=== PATIENT | female | born 1985 | race Caucasian/White ===

== ENCOUNTER → 2017-12-05 10:59 | Outpatient (CLI) | payer OTHER, SELFPAY ==
[2017-12-05 12:43] LABS: hCG Titer Quant., Serum < 1 mIU/mL (<9 non-preg)
[2017-12-12 09:45] LABS: HPV Reflexed? NOT INDICATED
== END ==
PROVIDERS: Visit Provider Obstetrics & Gynecology
DX: Z12.4 Encounter for screening for malignant neoplasm of cervix (principal); N92.6 Irregular menstruation, unspecified
CPT/HCPCS: 36415; 84702; 88175; G0145

== ENCOUNTER → 2018-01-09 13:24 | Outpatient (CLI) | payer OTHER, SELFPAY ==
[2018-01-09 14:21] LABS: hCG Titer Quant., Serum 1965 mIU/mL (<9 non-preg)
== END ==
PROVIDERS: Visit Provider Obstetrics & Gynecology
DX: N92.6 Irregular menstruation, unspecified (principal)
CPT/HCPCS: 84702

== ENCOUNTER → 2018-01-10 13:14 | Outpatient (CLI) | payer OTHER, SELFPAY ==
[2018-01-10 16:58] LABS: hCG Titer Quant., Serum 3011 mIU/mL (<9 non-preg)
== END ==
PROVIDERS: Visit Provider Obstetrics & Gynecology
DX: N91.2 Amenorrhea, unspecified (principal)
CPT/HCPCS: 36415; 84702

== ENCOUNTER → 2018-02-06 12:44 | Outpatient (CLI) | payer OTHER, SELFPAY ==
[2018-02-06 13:20] LABS: Absolute Neutrophil Count 6.9 X10^3/uL (2.0-7.7); Basophil# 0.03 X10^3/uL; Basophil% 0.3 % (0-1); Eosinophil# 0.05 X10^3/uL; Eosinophils% 0.5 % (0-5); Hematocrit 37.6 % (37-47); Hemoglobin 13.3 g/dl (12.0-15.0); Lymphocyte % 21.2 % (19-41); Mean Corp Hgb Conc 35.4 g/gl (32-36); Mean Corpuscular Hgb 31.8 pg (27.0-32.0); Mean Platelet Vol. 9.7 fl (6.2-12.0); Monocyte# 0.82 X10^3/uL; Monocyte% 8.3 % (0-10); Neutrophil # 6.88 X10^3/uL (2.7-7.7); Neutrophil % 69.4 % (47-70); Platelet Count 338 K/mm3 (150-450); RBC Distribution Width CV 11.8 % (11.6-14.6); Red Blood Count 4.18 M/mm3 (4.2-5.4); White Blood Count 9.9 K/mm3 (4.4-11.0)
[2018-02-07 02:34] LABS: Rapid Plasmin Reagin (RPR) NONREACTIVE (NONREACTIVE)
[2018-02-07 09:27] LABS: HIV - WCH Non-Reactive (Nonreactive); Rubella IgG 23.2 IU/mL; Vitamin D,25 Hydroxy 36.6 ng/mL (29.95-100.01)
[2018-02-07 11:30] LABS: HEPATITIS B SURFACE AG Negative (Negative)
== END ==
PROVIDERS: Visit Provider Obstetrics & Gynecology
DX: Z34.90 Encounter for supervision of normal pregnancy, unspecified, unspecified trimester (principal); E55.9 Vitamin D deficiency, unspecified
CPT/HCPCS: 36415; 82306; 85025; 86592; 86703; 86762; 86850; 86900; 87340

== ENCOUNTER → 2018-02-06 17:07 | Outpatient (CLI) | payer OTHER, SELFPAY ==
[2018-02-06 20:24] LABS: Chlamydia Trachomatis by PCR Negative (Negative); Neisserai gonorrhoeae by PCR Negative (Negative); Probe Check PASS; Sample Adequacy Control PASS; Specimen Processing Control PASS
== END ==
PROVIDERS: Visit Provider Obstetrics & Gynecology
DX: Z34.90 Encounter for supervision of normal pregnancy, unspecified, unspecified trimester (principal)
CPT/HCPCS: 87086; 87088; 87491; 87591

== ENCOUNTER → 2018-04-19 09:30 | Outpatient (CLI) | payer OTHER, SELFPAY ==
--- NOTE | 2018-04-19 09:34 | US_ITS ---
STUDY: SECOND AND THIRD TRIMESTER OBSTETRICAL ULTRASOUND REASON FOR EXAM: Female, 32 years old. Routine survey. LMP: December 07, 2017 TECHNIQUE: Transabdominal PRIOR ULTRASOUND: None. FINDINGS: There is a single intrauterine fetus. The fetus is in a variable presentation. There is demonstrated cardiac activity with a heart rate of 144 bpm. There is a normal amniotic fluid volume. The placenta is posterior in location and is not low lying. There are Grade 0 placental changes. The cervix measures 5.6 cm in length. The adnexal regions are not visualized. BIOMETRY: BPD: 4.3 cm: 19 weeks, 0 days HC: 16.3 cm: 19 weeks, 1 days AC: 13.6 cm: 19 weeks, 1 days FL: 3.0 cm: 19 weeks, 2 days age by current US: 19 weeks, 1 days. BRANDEE by current US: September 12, 2018. Estimated weight: 276 grams, +/- 40 grams, 53 % Age by LMP: 19 weeks, 0 days. BRANDEE by LMP: September 13, 2018. ANATOMY: Cranium: Normal lateral ventricles. Normal choroid plexus. Normal cerebellum. Normal cisterna magna. Normal face, nose and lips. Chest: Normal 4-chamber heart. Abdomen/Pelvis: Normal diaphragm. Normal stomach. Normal abdominal wall. Normal cord insertion. Normal 3 vessel cord. Normal kidneys. Normal bladder. Spine: Normal cervical spine. Normal thoracic spine. Normal lumbar spine. Normal sacrum. Extremities: Normal bilateral upper extremities. There is possible abnormal positioning of the right lower extremity. US/OB Anatomy Scan IMPRESSION: Single intrauterine gestation 19 weeks 1 day with estimated due date September 12, 2018. There is possible abnormal positioning of the right lower extremity. The remainder of the anatomic screen is unremarkable. Electronically Signed: Gino Reed MD at 12:02 EDT , Service support ,
== END ==
PROVIDERS: Visit Provider Nurse Practitioner Women's Health
DX: Z34.92 Encounter for supervision of normal pregnancy, unspecified, second trimester (principal); Z3A.19 19 weeks gestation of pregnancy
CPT/HCPCS: 76805

== ENCOUNTER → 2018-05-08 07:48 | Outpatient (CLI) | payer OTHER, SELFPAY ==
--- NOTE | 2018-05-08 07:53 | US_ITS ---
STUDY: SECOND AND THIRD TRIMESTER OBSTETRICAL ULTRASOUND - LIMITED REASON FOR EXAM: Female, 32 years old. Follow-up anatomy. LMP: 12/07/17 PRIOR ULTRASOUND: 04/19/2018 TECHNIQUE: Transabdominal ultrasound evaluation was performed. FINDINGS: There is a single intrauterine fetus. The fetus is in a cephalic presentation. There is demonstrated cardiac activity with a heart rate of 146 bpm. There is a normal amniotic fluid volume. The largest amniotic fluid pocket measures 9.8 x 3.2 cm. The placenta is posterior in location and is not low lying. There are Grade 0 placental changes. The cervix measures 4.4 cm in length. BIOMETRY: BPD: 5.13 cm: 21 weeks, 4 days HC: 19.99 cm: 22 weeks, 2 days AC: 16.80 cm: 21 weeks, 6 days FL: 3.69 cm: 21 weeks, 6 days Age by LMP: 21 weeks, 5 days. BRANDEE by LMP: 09/13/2018. age by prior US: 21 weeks, 6 days. BRANDEE by prior US: 09/12/2018. age by current US: 22 weeks, 0 days. BRANDEE by current US: 09/11/2018. Estimated weight: 452 grams, +/- 66 grams, 49 percentile. Gender: Indeterminant Bilateral lower extremities normal on today's study US/OB Limited With Biometrics IMPRESSION: Single live intrauterine at 22 weeks, 0 days by ultrasound with BRANDEE of 09/11/2018. Heart rate of 146 bpm. Normal growth noted since the previous study. No suspicious sonographic findings, bilateral lower extremities normal on today's examination Electronically Signed: Skyler Malhotra MD at 12:05 EDT , Service support ,
== END ==
PROVIDERS: Visit Provider Obstetrics & Gynecology
DX: O28.3 Abnormal ultrasonic finding on antenatal screening of mother (principal)
CPT/HCPCS: 76816

== ENCOUNTER → 2018-06-17 16:16 | Outpatient (CLI) | payer BC, SELFPAY ==
[2018-06-17 17:13] LABS: Absolute Lymphocyte Count 2.17 X10^3/ul (0.83-4.51); Absolute Neutrophil Count 8.2 X10^3/uL (2.0-7.7); Basophil# 0.02 X10^3/uL; Basophil% 0.2 % (0-1); Eosinophil# 0.06 X10^3/uL; Eosinophils% 0.5 % (0-5); Hemoglobin 12.5 g/dl (12.0-15.0); Lymphocyte # 2.17 X10^3/ul (4.0); Mean Corp Hgb Conc 34.7 g/gl (32-36); Mean Corpuscular Hgb 31.9 pg (27.0-32.0); Mean Corpuscular Volume 91.8 fL (81-99); Mean Platelet Vol. 10.2 fl (6.2-12.0); Monocyte% 7.9 % (0-10); Neutrophil # 8.21 X10^3/uL (2.7-7.7); Neutrophil % 71.9 % (47-70); Platelet Count 221 K/mm3 (150-450); RBC Distribution Width CV 12.5 % (11.6-14.6); RBC Distribution Width SD 41.8 fl (35.1-43.9); Red Blood Count 3.92 M/mm3 (4.2-5.4); White Blood Count 11.4 K/mm3 (4.4-11.0)
[2018-06-17 17:15] LABS: POSITIVE COUNT NO; POSITIVE DIFFERENTIAL NO; POSITIVE MORPHOLOGY NO
[2018-06-17 17:21] LABS: Glucose Challenge Gest 1H 50g 125 mg/dL (70-140)
== END ==
PROVIDERS: Visit Provider Obstetrics & Gynecology
DX: Z34.90 Encounter for supervision of normal pregnancy, unspecified, unspecified trimester (principal)
CPT/HCPCS: 36415; 82950; 85025

== ENCOUNTER → 2018-07-17 16:33 | Outpatient (CLI) | payer BC, SELFPAY ==
[2018-07-17 17:19] LABS: Absolute Lymphocyte Count 1.91 X10^3/ul (0.83-4.51); Absolute Neutrophil Count 6.4 X10^3/uL (2.0-7.7); Basophil# 0.02 X10^3/uL; Basophil% 0.2 % (0-1); Hematocrit 34.9 % (37-47); Hemoglobin 12.3 g/dl (12.0-15.0); Lymphocyte # 1.91 X10^3/ul (4.0); Mean Corp Hgb Conc 35.2 g/gl (32-36); Mean Corpuscular Volume 90.9 fL (81-99); Mean Platelet Vol. 10.7 fl (6.2-12.0); Monocyte# 1.02 X10^3/uL; Monocyte% 10.7 % (0-10); Neutrophil # 6.43 X10^3/uL (2.7-7.7); Neutrophil % 67.2 % (47-70); Platelet Count 226 K/mm3 (150-450); RBC Distribution Width CV 12.3 % (11.6-14.6); RBC Distribution Width SD 40.1 fl (35.1-43.9); Red Blood Count 3.84 M/mm3 (4.2-5.4); White Blood Count 9.6 K/mm3 (4.4-11.0)
[2018-07-17 17:21] LABS: POSITIVE COUNT NO; POSITIVE DIFFERENTIAL NO; POSITIVE MORPHOLOGY NO
[2018-07-17 17:35] LABS: Protein, Urine (Random) 22.4 mg/dL (<11.9); Protein:Creat Ratio 336 mg/g CRE (0-200)
[2018-07-17 17:41] LABS: ALB/GLOB Ratio 0.7 RATIO (0.9-2.4); AST(SGOT) 13 U/L (15-37); Alanine Aminotransfer ALT/SGPT 14 U/L (13-56); Albumin, Serum 2.6 g/dL (3.2-5.0); Alkaline Phosphatase 72 U/L (45-117); Anion Gap 6 (5-15); BUN 7 mg/dL (7-18); BUN/Creat Ratio 16.7 RATIO (10-20); Calcium,Total 8.4 mg/dL (8.5-10.1); Chloride 109 mmol/L (98-107); Creatinine, Serum 0.42 mg/dL (0.55-1.02); EST Glomerular Filtration Rate 189 mL/min (>60); Est Glom Filt Rate - Afr Amer 228 mL/min (>60); Globulin 3.9 g/dL (2.2-4.2); Glucose 79 mg/dL (74-106); LDH 179 U/L (84-246); Protein, Total 6.5 g/dL (6.4-8.2); Sodium Level 138 mmol/L (136-145); Uric Acid 2.6 mg/dL (2.6-6.0)
== END ==
PROVIDERS: Referring Provider Nurse Practitioner Women's Health; Visit Provider Nurse Practitioner Women's Health
DX: O16.3 Unspecified maternal hypertension, third trimester (principal); Z3A.00 Weeks of gestation of pregnancy not specified
CPT/HCPCS: 36415; 80053; 82570; 83615; 84156; 84550; 85025

== ENCOUNTER 2018-07-17 20:45 | Outpatient (CLI) | payer BC, SELFPAY ==
[2018-07-17 21:18] VITALS: BMI 37.8
[2018-07-17] MEDS: Betamethasone/Betamethasone 30 MG/5 ML Vial 12 MG IM (21:34)
[2018-07-18 05:41] LABS: Hematocrit 35.1 % (37-47); Hemoglobin 12.5 g/dl (12.0-15.0); Mean Corp Hgb Conc 35.6 g/gl (32-36); Mean Corpuscular Hgb 32.1 pg (27.0-32.0); Mean Corpuscular Volume 90.2 fL (81-99); Mean Platelet Vol. 10.4 fl (6.2-12.0); Platelet Count 220 K/mm3 (150-450); RBC Distribution Width CV 12.2 % (11.6-14.6); Red Blood Count 3.89 M/mm3 (4.2-5.4); Scan Indicated on CBC? Y/N NO; White Blood Count 10.8 K/mm3 (4.4-11.0)
[2018-07-18 05:56] LABS: AST(SGOT) 14 U/L (15-37); Alanine Aminotransfer ALT/SGPT 18 U/L (13-56); Creatinine, Serum 0.42 mg/dL (0.55-1.02); EST Glomerular Filtration Rate 190 mL/min (>60); Est Glom Filt Rate - Afr Amer 229 mL/min (>60); Estimated Creatinine Clearance 176.24 ml/min; International Normalized Ratio 1.1; Prothrombin Time (Protime)PT. 13.7 SECONDS (11.7-14.9); Uric Acid 3.6 mg/dL (2.6-6.0)
[2018-07-18 05:57] LABS: Partial Thromboplast Time 27.1 Seconds (24.1-36.2)
--- NOTE | 2018-07-18 20:38 | OB.TRI.HP_ITS ---
- Problem List (1) Proteinuria affecting Status: Acute Comment: 24 urine ordered. urine culture ordered. if no infection and increased 24 hour urine recommend home bp monitoring and weekly nsts (2) Hypertension affecting Status: Acute Qualifiers: (3) Status: Acute Qualifiers: Comment: genetic and NTD screening declined. anatomy scan normal. (4) Supervision of normal Status: Acute Qualifiers: Comment: PRR BRANDEE 09/13/18 gender surprise Charly History of Present Illness Date of Service: 07/18/18 Was patient seen by the physician?: Yes Reason For Visit: R/O LABOR Date of Service: 07/18/18 History of Present Illness: 32 yo @ 31 weeks presents with protienuria and elevate dbps in the office. she has had intermittent headaches but she is feeling better at the present. she denies any visual changes, and admits good fm, no regular ctx, and no lof. Allergies No Known Allergies Allergy (Verified 07/17/18 15:39) - Pertinent Past Medical History Medical History: Past Medical History (Last Reviewed 07/17/18 @ 15:39 by Kirsten Queen) Abnormal Pap smear of cervix GERD (gastroesophageal reflux disease) Hiatal hernia Surgical History: Past Surgical History (Last Reviewed 07/17/18 @ 15:39 by Kirsten Queen) History of placement of ear tubes History of tonsillectomy and adenoidectomy Hx of cholecystectomy Review of Systems Constitutional: Denies: Fever, Malaise Eyes: Denies: Blurred vision, Vision Change HEENT: Reports: Head Aches. Denies: Visual Changes Cardiovascular: Denies: Chest Pain, Palpitations Respiratory: Denies: Cough, Shortness of Breath, Wheezing Gastrointestinal: Denies: Abdominal Pain, Diarrhea, Nausea, Vomiting Genitourinary: Denies: Dysuria, Hematuria Musculoskeletal: Denies: Joint Pain, Muscle pain Skin: Denies: Lesions, Rash Neurological: Reports: Headaches. Denies: Blurred vision, Focal weakness Psychiatric: Denies: Anxiety, Depression Endocrine: Denies: Heat/ Cold Intolerance Hematologic/ Lymphatic: Denies: Easy Bruising, Easy Bleeding Physical Exam General: Alert, Cooperative, No apparent distress HEENT: Atraumatic, Normocephalic. Negative for: Thyromegaly, Lymphadenopathy Cardiovascular: Regular rate Lungs: Normal air movement Abdomen: Soft, Non Tender, Gravid Neurological: Deep Tendon Reflexes 2+/4 and Symmetrical, Neuro grossly intact. 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 Negative for: Vulvar lesions Estimated gestational size: Appropriate for gestational size Presentation: Cephalic NST - FHR Rate Baby A Baseline: 140 Variability:: Moderate Accelerations:: 15 x 15 Decelerations:: None NST Reactive:: Yes FHR Category:: Category I Uterine Activity:: no regular Impression/Plan 32 yo @ 31 weeks iwth proteinuria 24 hour urine celestone given bp monitoring- normal dc home preeclampsia precautions, return for 24 urine return and second celestone
== END 2018-07-18 09:35 | disposition home or self-care (01) ==
LOC: WPOUT 20:53 → WP 20:53
PROVIDERS: Visit Provider Obstetrics & Gynecology
DX: O12.13 Gestational proteinuria, third trimester (principal); O16.3 Unspecified maternal hypertension, third trimester; K21.9 Gastro-esophageal reflux disease without esophagitis; Z3A.31 31 weeks gestation of pregnancy
CPT/HCPCS: 59025; 59050; 82565; 84450; 84460; 84550; 85027; 85610; 85730; 96372; 99218; G0378; J0702

== ENCOUNTER 2018-07-18 21:30 | Outpatient (CLI) | payer BC, SELFPAY ==
[2018-07-18] MEDS: Betamethasone/Betamethasone 30 MG/5 ML Vial 12 MG IM (22:19)
[2018-07-18 22:22] LABS: Red Blood Cells-Urine 0 SEEN /hpf (0-5)
[2018-07-18 22:23] LABS: Color, Urine Yellow (Yellow); Glucose, Dipstick 250 mg/dl (Normal); Ketone-Dipstick 50 mg/dl (Negative); Leukocyte Esterase-Dipstick 25 /ul (Negative); Nitrite-Dipstick Negative (Negative); Occult Blood-Urine 10 /ul (Negative); Protein-Dipstick Negative (Negative); Specific Gravity, Urine 1.025 (1.002-1.030); Urine Bilirubin Dipstick Negative (Negative); Urine Clarity Clear (Clear); Urine Urobilinogen Normal (Normal)
[2018-07-18 22:30] LABS: White Blood Cells 0-5 SEEN /hpf (0-5)
[2018-07-18 22:31] LABS: Bacteria RARE /hpf (None Seen); Mucous, Urine 1+ /hpf (<or=2+); Squamous Epithelial Cells - UA 0-5 SEEN /hpf (5-10)
[2018-07-18 22:57] LABS: 24HR. Urine Creatinine 1.35 g/24 HR (0.70-1.90)
[2018-07-18 22:59] LABS: 24 Hour Urine Protein 202.1 mg/24HR (<150 MG/24HR); 24HR. UA Prot. Total Volume 2150 mL; Urine Protein (24 Hour) 9.4 mg/dL (<11.9)
--- NOTE | 2018-07-22 12:39 | OB.TRI.NOTE ---
- Problem List (1) Proteinuria affecting Status: Acute Comment: 24 urine ordered. urine culture ordered. if no infection and increased 24 hour urine recommend home bp monitoring and weekly nsts History of Present Illness Date of Service: 07/18/18 Was patient seen by the physician?: No Reason For Visit: SHOT Allergies No Known Allergies Allergy (Verified 07/17/18 15:39) - Pertinent Past Medical History Medical History: Past Medical History (Last Reviewed 07/17/18 @ 15:39 by Kirsten Queen) Abnormal Pap smear of cervix GERD (gastroesophageal reflux disease) Hiatal hernia Surgical History: Past Surgical History (Last Reviewed 07/17/18 @ 15:39 by Kirsten Queen) History of placement of ear tubes History of tonsillectomy and adenoidectomy Hx of cholecystectomy Impression/Plan celestone injection
== END 2018-07-18 22:25 | disposition home or self-care (01) ==
LOC: WPOUT 21:44 → WP 21:47
PROVIDERS: Visit Provider Obstetrics & Gynecology
DX: O12.10 Gestational proteinuria, unspecified trimester (principal); K21.9 Gastro-esophageal reflux disease without esophagitis; Z3A.00 Weeks of gestation of pregnancy not specified
CPT/HCPCS: 81001; 82570; 84156; 87086; 87088; 96372; 99218; G0378; J0702

== ENCOUNTER → 2018-08-21 19:52 | Outpatient (CLI) | payer BC, SELFPAY ==
[2018-08-21 21:18] LABS: Group B Strep DNA By PCR Negative (Negative); Internal Control PASS; Probe Check PASS; Specimen Processing Control PASS
== END ==
PROVIDERS: Referring Provider Obstetrics & Gynecology; Visit Provider Obstetrics & Gynecology
DX: Z34.90 Encounter for supervision of normal pregnancy, unspecified, unspecified trimester (principal)
CPT/HCPCS: 87081; 87653

== ENCOUNTER → 2018-08-28 15:51 | Outpatient (CLI) | payer BC, SELFPAY ==
[2018-08-28 15:42] VITALS: BMI 39.4
[2018-08-28 16:06] LABS: Protein, Urine (Random) 14.6 mg/dL (<11.9); Protein:Creat Ratio 109 mg/g CRE (0-200)
== END ==
PROVIDERS: Referring Provider Nurse Practitioner Women's Health; Visit Provider Nurse Practitioner Women's Health
DX: I10 Essential (primary) hypertension (principal)
CPT/HCPCS: 82570; 84156

== ENCOUNTER 2018-09-04 23:40 | Inpatient (IN) | payer BC, SELFPAY ==
[2018-09-02 15:25] VITALS: BMI 39.4
[2018-09-05] MEDS: Lactated Ringers 1,000 ML 50 ML IV ×3 (00:20→03:30)
[2018-09-05 00:21] VITALS: BMI 39.6
[2018-09-05 00:42] LABS: Hematocrit 37.7 % (37-47); Hemoglobin 13.1 g/dl (12.0-15.0); Mean Corp Hgb Conc 34.7 g/gl (32-36); Mean Corpuscular Hgb 31.8 pg (27.0-32.0); Mean Corpuscular Volume 91.5 fL (81-99); Mean Platelet Vol. 11.1 fl (6.2-12.0); Platelet Count 177 K/mm3 (150-450); RBC Distribution Width SD 43.1 fl (35.1-43.9); Red Blood Count 4.12 M/mm3 (4.2-5.4); White Blood Count 13.3 K/mm3 (4.4-11.0)
[2018-09-05 00:43] LABS: Scan Indicated on CBC? Y/N YES- FLAGS NOTED
[2018-09-05] MEDS: fentaNYL-bupivacaine (epidural) 100 ML BAG EPIDURAL (02:30)
--- NOTE | 2018-09-05 04:56 | PCM.HP.STD ---
Problem List (1) Active labor Status: Acute History of Present Illness Date of Admission: 09/05/18 Chief Complaint: Contractions The patient is a 32 year old F [ at 38w6d with onset of regular contractions with back pain beginning last evening. No signs of SROM. ] Past Medical History Medical History: Medical History (Last Reviewed 08/28/18 @ 15:43 by Mary Jane Russell) Abnormal Pap smear of cervix R87.619 GERD (gastroesophageal reflux disease) K21.9 Hiatal hernia K44.9 Allergies No Known Allergies Allergy (Verified 09/05/18 00:49) Home Medications: Ambulatory Orders Medication Instructions Recorded 1 tab PO QDAY MDD one 02/06/18 vitamin,calcium,saxjowff-dqid-croer acid tablet Acetaminophen [Tylenol] PRN 09/05/18 Surgical History: Surgical History (Last Reviewed 08/28/18 @ 15:43 by Mary Jane Russell) History of placement of ear tubes Z96.22 History of tonsillectomy and adenoidectomy Z98.890 Hx of cholecystectomy Z90.49 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 Lives: Spouse/ Significant Other Smoking Status: Never smoker Alcohol: None Drugs: None - *Family History Maternal Family History: Family History (Last Reviewed 08/28/18 @ 15:43 by Mary Jane Russell) Mother Hypertension History Items: No pertinent history Paternal Family History: Family History (Last Reviewed 08/28/18 @ 15:43 by Mary Jane Russell) Mother Hypertension History Items: No pertinent history Review of Systems Constitutional: Denies: Chills, Fever, Night Sweats Eyes: Denies: Blurred vision Cardiovascular: Denies: Chest Pain, Chest Tightness, Edema Respiratory: Denies: Cough, Shortness of Breath Gastrointestinal: Reports: Abdominal Pain - contractions Psychiatric: Denies: Anxiety, Depression VTE Information - Inpt Only VTE Present on Admission: No VTE Mechan Device Prophylaxis: None VTE Pharm Prophylaxis ordered?: No Reason prophylaxis not ordered:: Treatment Not Indicated Patient Problems: Active and Suspected Problems (Last Reviewed 08/28/18 @ 15:43 by Mary Jane Russell) Active labor (Acute) Subjective: Comfortable with epidural in place Objective: Afeb VSS FHR tracing CAT 1 - Physical Exam General: Alert, Oriented x3, Cooperative, No apparent distress Lungs: Clear to auscultation, Normal air movement Cardiovascular: Regular rate, Regular Rhythm Abdomen: Soft, Non Tender, Non-Distended, Gravid, Appropriate for Gestational Age Extremities: No edema Skin: No rashes Neurological: Neuro grossly intact Psych/Mental Status: Normal Affect Comment: CE FD 0 station Weight: 238 lb Body Mass Index (BMI) 39.6 Laboratory Tests Past 24 Hrs 09/05/18 09/05/18 00:20 02:50 WBC 13.3 H RBC 4.12 L Hgb 13.1 Hct 37.7 MCV 91.5 MCH 31.8 MCHC 34.7 RDW 13.0 RDW Differential 43.1 Plt Count 177 MPV 11.1 Blood Type B POSITIVE Antibody Screen NEGATIVE Assessment/Plan All Active Problems (Last Reviewed 08/28/18 @ 15:43 by Mary Jane Russell) Active labor (Acute) (Acute) Supervision of normal (Acute) Abnormal ultrasonic finding on screening of mother (Resolved) Hypertension affecting (Resolved) Proteinuria affecting (Resolved) Active labor at 38w6d ega with uncomplicated . AROM performed with clear fluid noted. Will start pushing efforts now. Expect .
--- NOTE | 2018-09-05 05:00 | HP.PCM_ITS ---
Problem List (1) Active labor Status: Acute History of Present Illness Date of Admission: 09/05/18 Chief Complaint: Contractions The patient is a 32 year old F [ at 38w6d with onset of regular contractions with back pain beginning last evening. No signs of SROM. ] Past Medical History Medical History: Medical History (Last Reviewed 08/28/18 @ 15:43 by Mary Jane Russell) Abnormal Pap smear of cervix R87.619 GERD (gastroesophageal reflux disease) K21.9 Hiatal hernia K44.9 Allergies No Known Allergies Allergy (Verified 09/05/18 00:49) Home Medications: Ambulatory Orders Medication Instructions Recorded 1 tab PO QDAY MDD one 02/06/18 vitamin,calcium,drhnjruh-stln-stkbc acid tablet Acetaminophen [Tylenol] PRN 09/05/18 Surgical History: Surgical History (Last Reviewed 08/28/18 @ 15:43 by Mary Jane Russell) History of placement of ear tubes Z96.22 History of tonsillectomy and adenoidectomy Z98.890 Hx of cholecystectomy Z90.49 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 Lives: Spouse/ Significant Other Smoking Status: Never smoker Alcohol: None Drugs: None - *Family History Maternal Family History: Family History (Last Reviewed 08/28/18 @ 15:43 by Mary Jane Russell) Mother Hypertension History Items: No pertinent history Paternal Family History: Family History (Last Reviewed 08/28/18 @ 15:43 by Mary Jane Russell) Mother Hypertension History Items: No pertinent history Review of Systems Constitutional: Denies: Chills, Fever, Night Sweats Eyes: Denies: Blurred vision Cardiovascular: Denies: Chest Pain, Chest Tightness, Edema Respiratory: Denies: Cough, Shortness of Breath Gastrointestinal: Reports: Abdominal Pain - contractions Psychiatric: Denies: Anxiety, Depression VTE Information - Inpt Only VTE Present on Admission: No VTE Mechan Device Prophylaxis: None VTE Pharm Prophylaxis ordered?: No Reason prophylaxis not ordered:: Treatment Not Indicated Patient Problems: Active and Suspected Problems (Last Reviewed 08/28/18 @ 15:43 by Mary Jane Russell) Active labor (Acute) Subjective: Comfortable with epidural in place Objective: Afeb VSS FHR tracing CAT 1 - Physical Exam General: Alert, Oriented x3, Cooperative, No apparent distress Lungs: Clear to auscultation, Normal air movement Cardiovascular: Regular rate, Regular Rhythm Abdomen: Soft, Non Tender, Non-Distended, Gravid, Appropriate for Gestational Age Extremities: No edema Skin: No rashes Neurological: Neuro grossly intact Psych/Mental Status: Normal Affect Comment: CE FD 0 station Weight: 238 lb Body Mass Index (BMI) 39.6 Laboratory Tests Past 24 Hrs 09/05/18 09/05/18 00:20 02:50 WBC 13.3 H RBC 4.12 L Hgb 13.1 Hct 37.7 MCV 91.5 MCH 31.8 MCHC 34.7 RDW 13.0 RDW Differential 43.1 Plt Count 177 MPV 11.1 Blood Type B POSITIVE Antibody Screen NEGATIVE Assessment/Plan All Active Problems (Last Reviewed 08/28/18 @ 15:43 by Mary Jane Russell) Active labor (Acute) (Acute) Supervision of normal (Acute) Abnormal ultrasonic finding on screening of mother (Resolved) Hypertension affecting (Resolved) Proteinuria affecting (Resolved) Active labor at 38w6d ega with uncomplicated . AROM performed with clear fluid noted. Will start pushing efforts now. Expect .
--- NOTE | 2018-09-05 05:48 | DCINST_ITS ---
Discharge Diet: No Restrictions Discharge Activity: Return to Normal Activity, May Drive, May Shower Return to work on:: 10/30/18 May shower in (days): 0 May resume sexual activity in: 4-6 weeks Call your doctor if your incision/area has: Sudden Increased Bleeding, Increased Pain/ Swelling, Foul Smelling Discharge Call your doctor if you observe: Fever of 101 or Higher, Inability to urinate, Inability to have a bowel movement, Using more than one pad per hour, Shortness of breath, Chest pain, Calf discomfort, Uncontrolled pain Cleanse incision/area with: Soap & Water Additional Instructions: If you experience any of the following, contact your healthcare provider. * Bleeding that soaks a pad every hour for 2 hours * Fever 100.4 or higher * Unrelieved incision or abdominal pain * Swelling, redness, discharge or bleeding from your incision or episiotomy site * Your incision begins to separate * Problems urinating (including inability to urinate or burning while urinating). * Visual changes * Severe headache * Flu-like symptoms * Pain or redness in one of both of your breasts * Pain, warmth, tenderness or swelling in your legs, especially the calf area * Frequent nausea and vomiting * Symptoms of depression or anxiety If you experience any of the following, call 911 or go to the nearest Emergency Room. * Chest pain * Problems breathing * Seizure activity * Partial or complete paralysis of a body part, slurred speech, weakness or drooping of the face, or a sudden inability to walk or hold your balance Allergies/Adverse Reactions: Allergies No Known Allergies Allergy (Verified 09/05/18 00:49) Medications to take at Discharge vitamin,calcium,vggpicay-arpp-wxkjs acid tablet 1 tab PO QDAY MDD one 02/06/18 Acetaminophen [Tylenol] PRN 09/05/18 Ibuprofen 600 mg PO 4X/DAY #30 tab 09/05/18 The following prescriptions were given: Ibuprofen 600 mg PO 4X/DAY #30 tab Please Follow Up With: Reina Curiel MD When: 6 weeks Primary Care Physician: Marisela Fitzgerald,Out of [Primary Care Provider] - Test Results: Test results from this visit will be discussed in further detail at your follow- up appointment, if applicable.
--- NOTE | 2018-09-05 06:42 | PCM.OB.VAG ---
- Problem List (1) Active labor Status: Acute Vaginal Delivery Maternal Presentation: Active Labor 38w6d ega with regular uterine contractions Amniotic Membrane Rupture Type: Artificial Rupture of Membrane time: 0500 Amniotic Fluid Description: Clear Final BRANDEE: 09/13/18 Final BRANDEE Source: US <20 weeks Gestational age: 38 Weeks and 6 Days Date of Procedure: 09/05/18 Pre-Operative Diagnosis: Labor Post-Operative Diagnosis: same Surgery/ Procedure Performed: Spontaneous Vaginal Delivery Anesthesiologist: Wellington Boland Type of Anesthesia: Epidural Description of Procedure: Presented at 38w6d at 5cm dilation. Progressed over 5 hours to fully dilated then pushed for about 1 1/2 hours to deliver a live female without complication. The nares and mouth were suctioned with a bulb suction at delivery. There was an active cry within one minute of delivery. Apgars were 8/9.Delayed cord clamping was employed. The cord was clamped and cut then baby was placed on mom's chest for skin to skin contact. The placenta delivered spontaneously intact with a centrally located 3VC. The uterus contracted well. Inspection revealed an intact cervix and upper vagina. A small posterior vaginal first degree tear was repaired with 2-0 Vicryl. Presentation: Vertex Placental Delivery Description: Spontaneous Placenta Disposition: [facility] Percentage of Placenta Abruption: 0 Cord Vessel Description: 3 Vessels Nuchal Cord Compression: Without compression Estimated Blood Loss: 200cc Infant A gender: Female (1 minute): 8 (5 minute): 9 Episiotomy Description: None Laceration: Midline, Vaginal Extension/lac, 1st degree Medications given after delivery: IV Pitocin Complications: None
[2018-09-05] MEDS: Oxytocin 30 units/NS 500 ml 30 UNITS/500 ML IV.SOLN 334 UNITS IV (06:57)
[2018-09-05] MEDS: Oxytocin 30 units/NS 500 ml 30 UNITS/500 ML IV.SOLN 167 UNITS IV (06:57)
[2018-09-05 12:15] VITALS: BP 130/81; PULSE 110; RESP 16; TEMP 37.1; O2SAT 97
[2018-09-05 18:00] VITALS: BP 146/84; PULSE 84; RESP 16; TEMP 36.4
[2018-09-05 19:50] VITALS: BP 145/83; PULSE 93; RESP 16; TEMP 36.4; O2SAT 99
[2018-09-05 23:55] VITALS: BP 123/76; PULSE 96; RESP 16; TEMP 36.6; O2SAT 96
[2018-09-06 04:25] VITALS: BP 136/83; PULSE 82; RESP 14; TEMP 36.6; O2SAT 96
[2018-09-06 07:05] LABS: Hemoglobin 11.5 g/dl (12.0-15.0); Mean Corp Hgb Conc 34.8 g/gl (32-36); Mean Corpuscular Hgb 31.3 pg (27.0-32.0); Mean Corpuscular Volume 89.7 fL (81-99); Mean Platelet Vol. 9.9 fl (6.2-12.0); Platelet Count 182 K/mm3 (150-450); RBC Distribution Width CV 13.1 % (11.6-14.6); RBC Distribution Width SD 42.4 fl (35.1-43.9); Red Blood Count 3.68 M/mm3 (4.2-5.4); White Blood Count 10.8 K/mm3 (4.4-11.0)
[2018-09-06 07:07] LABS: Scan Indicated on CBC? Y/N NO
[2018-09-06 07:40] VITALS: BP 130/80; PULSE 98; RESP 16; TEMP 36; O2SAT 97
--- NOTE | 2018-09-06 08:47 | PCM.PN.OB ---
Patient Problems: Active and Suspected Problems (Last Reviewed 08/28/18 @ 15:43 by Mary Jane Russell) Active labor (Acute) Subjective: No specific complaints except fatigue. breast feeding. Bleeding light. Objective: Afeb VSS Hgb appropriate. - Physical Exam General: Alert, Oriented x3, Cooperative, No apparent distress Lungs: Clear to auscultation, Normal air movement Cardiovascular: Regular rate, Regular Rhythm Abdomen: Soft, Non Tender, Non-Distended, - - Fundus firm nontender Extremities: No edema Skin: No rashes Neurological: Neuro grossly intact Psych/Mental Status: Normal Affect Comment: Lochia appropriate Vital Signs Temp Pulse Resp BP Pulse Ox 98 F 82 14 136/83 H 96 09/06/18 04:25 09/06/18 04:25 09/06/18 04:25 09/06/18 04:25 09/06/18 04:25 Oxygen Delivery Method Room Air Weight: 238 lb Body Mass Index (BMI) 39.6 Intake and Output for Last 24 Hours 09/04/18 09/05/18 09/06/18 23:59 23:59 23:59 Intake Total 936 / 936 Output Total 1500 / 1500 Balance -564 / -564 Laboratory Tests Past 24 Hrs 09/06/18 06:55 WBC 10.8 RBC 3.68 L Hgb 11.5 L Hct 33.0 L MCV 89.7 MCH 31.3 MCHC 34.8 RDW 13.1 RDW Differential 42.4 Plt Count 182 MPV 9.9 Medical Necessity - Tobacco Use Smoking Status: Never smoker Assessment/Plan All Active Problems (Last Reviewed 08/28/18 @ 15:43 by Mary Jane Russell) Active labor (Acute) (Acute) Supervision of normal (Acute) Abnormal ultrasonic finding on screening of mother (Resolved) Hypertension affecting (Resolved) Proteinuria affecting (Resolved) Doing well on PP day#1. Continue routine PP care.
--- NOTE | 2018-09-06 09:02 | PCM.PN.OB ---
Patient Problems: Active and Suspected Problems (Last Reviewed 08/28/18 @ 15:43 by Mary Jane Russell) Active labor (Acute) Spontaneous vaginal delivery (Acute) - Physical Exam Vital Signs Temp Pulse Resp BP Pulse Ox 96.8 F L 98 16 130/80 H 97 09/06/18 07:40 09/06/18 07:40 09/06/18 07:40 09/06/18 07:40 09/06/18 07:40 Oxygen Delivery Method Room Air Weight: 238 lb Body Mass Index (BMI) 39.6 Intake and Output for Last 24 Hours 09/04/18 09/05/18 09/06/18 23:59 23:59 23:59 Intake Total 936 / 936 Output Total 1500 / 1500 Balance -564 / -564 Laboratory Tests Past 24 Hrs 09/06/18 06:55 WBC 10.8 RBC 3.68 L Hgb 11.5 L Hct 33.0 L MCV 89.7 MCH 31.3 MCHC 34.8 RDW 13.1 RDW Differential 42.4 Plt Count 182 MPV 9.9 Medical Necessity - Tobacco Use Smoking Status: Never smoker Assessment/Plan All Active Problems (Last Reviewed 08/28/18 @ 15:43 by Mary Jane Russell) Active labor (Acute) Spontaneous vaginal delivery (Acute) (Acute) Supervision of normal (Acute) Abnormal ultrasonic finding on screening of mother (Resolved) Hypertension affecting (Resolved) Proteinuria affecting (Resolved)
[2018-09-06 14:00] VITALS: BP 137/88; PULSE 98; RESP 18; TEMP 36.6; O2SAT 96
[2018-09-06 19:45] VITALS: BP 134/83; PULSE 96; RESP 14; TEMP 36.7; O2SAT 96
--- NOTE | 2018-09-06 19:59 | PCM.DC.SUM ---
Discharge Date and Diagnosis - Problem List Patient Problems: Active and Suspected Problems (Last Reviewed 08/28/18 @ 15:43 by Mary Jane Russell) Spontaneous vaginal delivery (Acute) Active labor (Acute) Date of Admission: 09/05/18 Date of Discharge: 09/07/18 - Primary Discharge Diagnosis Active and Suspected Problems (Last Reviewed 08/28/18 @ 15:43 by Mary Jane Russell) Spontaneous vaginal delivery (Acute) Active labor (Acute) Hospital Course and Treatment Operations: None Procedures: - - Epidural, Summary of Care Provided: The patient is a 32 year old F [admitted in active labor. Progressed to FD then psuhed to deliver a live without complication. Post course was unremarkable. Discharged home on PP day#2.] Patient Problems: Active and Suspected Problems (Last Reviewed 08/28/18 @ 15:43 by Mary Jane Russell) Spontaneous vaginal delivery (Acute) Active labor (Acute) - Physical Exam Vital Signs Temp Pulse Resp BP Pulse Ox 97.8 F 98 18 137/88 H 96 09/06/18 14:00 09/06/18 14:00 09/06/18 14:00 09/06/18 14:00 09/06/18 14:00 Oxygen Delivery Method Room Air Weight: 238 lb Body Mass Index (BMI) 39.6 Intake and Output for Last 24 Hours 09/04/18 09/05/18 09/06/18 23:59 23:59 23:59 Intake Total 936 / 936 Output Total 1500 / 1500 Balance -564 / -564 Laboratory Tests Past 24 Hrs 09/06/18 06:55 WBC 10.8 RBC 3.68 L Hgb 11.5 L Hct 33.0 L MCV 89.7 MCH 31.3 MCHC 34.8 RDW 13.1 RDW Differential 42.4 Plt Count 182 MPV 9.9 Discharge Diet: No Restrictions Discharge Activity: Return to Normal Activity, May Drive, May Shower Return to work on:: 10/30/18 May shower in (days): 0 May resume sexual activity in: 4-6 weeks Call your doctor if your incision/area has: Sudden Increased Bleeding, Increased Pain/ Swelling, Foul Smelling Discharge Call your doctor if you observe: Fever of 101 or Higher, Inability to urinate, Inability to have a bowel movement, Using more than one pad per hour, Shortness of breath, Chest pain, Calf discomfort, Uncontrolled pain Cleanse incision/area with: Soap & Water Home Medications: Medications to take at Discharge vitamin,calcium,fqzfqhbh-xaej-ufotv acid tablet 1 tab PO QDAY MDD one 02/06/18 Acetaminophen [Tylenol] PRN 09/05/18 Ibuprofen 600 mg PO 4X/DAY #30 tab 09/05/18 Following Prescrptions Were Given to Patient: Ibuprofen 600 mg PO 4X/DAY #30 tab Primary Care Physician: Marisela Fitzgerald,Out of [Primary Care Provider] - Please Follow Up With: Reina Curiel MD When: 6 weeks Disposition: Home Minutes spent on discharge:: 15 Patient Condition:: Good Medical Necessity - Tobacco Use Smoking Status: Never smoker Meaningful Use Info Meaningful Use Diagnoses (Choose all that apply): None applicable
[2018-09-07 01:35] VITALS: BP 137/82; PULSE 82; RESP 16; TEMP 36.8; O2SAT 96
--- NOTE | 2018-09-07 07:31 | PCM.PN.OB ---
Patient Problems: Active and Suspected Problems (Last Reviewed 08/28/18 @ 15:43 by Mary Jane Russell) Spontaneous vaginal delivery (Acute) Active labor (Acute) Subjective: No specific complaints. Bleeding light. Breast feeding. Objective: Afeb VSS - Physical Exam General: Alert, Oriented x3, Cooperative, No apparent distress Lungs: Clear to auscultation, Normal air movement Cardiovascular: Regular rate, Regular Rhythm Abdomen: Soft, Non Tender, Non-Distended, - - Fundus firm nontender Extremities: No edema Skin: No rashes Neurological: Neuro grossly intact Psych/Mental Status: Normal Affect Comment: Lochia light Vital Signs Temp Pulse Resp BP Pulse Ox 98.2 F 82 16 137/82 H 96 09/07/18 01:35 09/07/18 01:35 09/07/18 01:35 09/07/18 01:35 09/07/18 01:35 Oxygen Delivery Method Room Air Weight: 238 lb Body Mass Index (BMI) 39.6 Intake and Output for Last 24 Hours 09/05/18 09/06/18 09/07/18 23:59 23:59 23:59 Intake Total 936 / 936 Output Total 1500 / 1500 Balance -564 / -564 Medical Necessity - Tobacco Use Smoking Status: Never smoker Assessment/Plan All Active Problems (Last Reviewed 08/28/18 @ 15:43 by Mary Jane Russell) Spontaneous vaginal delivery (Acute) Active labor (Acute) (Acute) Supervision of normal (Acute) Abnormal ultrasonic finding on screening of mother (Resolved) Hypertension affecting (Resolved) Proteinuria affecting (Resolved) Doing well on PP day#2. Cleared for discharge home today. Home going instructions and warnings given.
[2018-09-07 07:50] VITALS: BP 150/96; PULSE 92; RESP 16; TEMP 36.2; O2SAT 96
[2018-09-07 11:30] VITALS: BP 147/89
== END 2018-09-07 11:10 | disposition home or self-care (01) | DRG 807 ==
PROVIDERS: Admitting Provider Obstetrics & Gynecology; Visit Provider Obstetrics & Gynecology
DX: O69.1XX0 Labor and delivery complicated by cord around neck, with compression, not applicable or unspecified (principal); O70.0 First degree perineal laceration during delivery; K21.9 Gastro-esophageal reflux disease without esophagitis; Z3A.38 38 weeks gestation of pregnancy; Z37.0 Single live birth
CPT/HCPCS: 59050; 85027; 86850; 86900; 99218; J7120; G0378

== ENCOUNTER → 2020-06-30 | Outpatient (CLI) | payer BC, SELFPAY ==
[2020-06-30 14:03] VITALS: BMI 39.6
[2020-07-07 13:09] LABS: HPV APTIMA, High Risk Negative (Negative)
== END | disposition home or self-care (01) ==
LOC: LABSPEC 17:02
PROVIDERS: Referring Provider Obstetrics & Gynecology; Visit Provider Obstetrics & Gynecology
DX: Z12.4 Encounter for screening for malignant neoplasm of cervix (principal)
CPT/HCPCS: 87624; 88175; G0145

== ENCOUNTER → 2022-06-19 | Outpatient (CLI) | payer OTHER, SELFPAY ==
[2022-06-19 12:18] LABS: Absolute Lymphocyte Count 1.79 X10^3/uL (0.83-4.51); Basophil# 0.04 X10^3/uL; Basophil% 0.8 % (0-1); Eosinophil# 0.08 X10^3/uL; Eosinophils% 1.5 % (0-5); Hematocrit 39.9 % (37-47); Hemoglobin 13.8 g/dL (12.0-15.0); Lymphocyte # 1.79 X10^3/ul (0.83-4.51); Lymphocyte % 33.7 % (19-41); Mean Corp Hgb Conc 34.6 g/dL (32-36); Mean Corpuscular Hgb 31.6 pg (27.0-32.0); Mean Corpuscular Volume 91.3 fL (81-99); Mean Platelet Vol. 9.9 fl (6.2-12.0); Monocyte# 0.43 X10^3/uL; Monocyte% 8.1 % (0-10); NRBC Flagged by Analyzer 0 % (0-5); Neutrophil # 2.95 X10^3/uL (2.7-7.7); Neutrophil % 55.5 % (47-70); Platelet Count 332 K/mm3 (150-450); RBC Distribution Width CV 11.9 % (11.6-14.6); RBC Distribution Width SD 39.5 fl (35.1-43.9); Red Blood Count 4.37 M/mm3 (4.2-5.4); White Blood Count 5.3 K/mm3 (4.4-11.0)
[2022-06-19 12:39] LABS: AST(SGOT) 11 U/L (15-37); Alanine Aminotransfer ALT/SGPT 22 U/L (13-56); Albumin, Serum 3.7 g/dL (3.2-5.0); Alkaline Phosphatase 49 U/L (45-117); Anion Gap 8 (5-15); BUN 14 mg/dL (7-18); BUN/Creat Ratio 22.7 RATIO (10-20); Calcium,Total 8.8 mg/dL (8.5-10.1); Chloride 106 mmol/L (98-107); Creatinine, Serum 0.62 mg/dL (0.55-1.02); EST Glomerular Filtration Rate 118 mL/min (>60); Est Glom Filt Rate - Afr Amer 142 mL/min (>60); Globulin 3.7 g/dL (2.2-4.2); Glucose 92 mg/dL (74-106); Potassium 3.9 mmol/L (3.5-5.1); Protein, Total 7.4 g/dL (6.4-8.2); Sodium Level 140 mmol/L (136-145)
[2022-06-19 12:44] LABS: Vitamin D,25 Hydroxy 23.7 ng/mL
== END | disposition home or self-care (01) ==
LOC: BIMLAB 10:33
PROVIDERS: PCP Internal Medicine; Referring Provider Internal Medicine; Visit Provider Internal Medicine
DX: K21.9 Gastro-esophageal reflux disease without esophagitis (principal); E55.9 Vitamin D deficiency, unspecified
CPT/HCPCS: 36415; 80053; 82306; 85025

== ENCOUNTER → 2022-08-07 | Outpatient (CLI) | payer OTHER, SELFPAY ==
[2022-08-07 12:12] LABS: hCG Titer Quant., Serum 468 mIU/mL (1-3)
== END | disposition home or self-care (01) ==
LOC: LAB 11:06
PROVIDERS: PCP Internal Medicine; Visit Provider Nurse Practitioner Women's Health
DX: Z34.90 Encounter for supervision of normal pregnancy, unspecified, unspecified trimester (principal)
CPT/HCPCS: 36415; 84702

== ENCOUNTER → 2022-08-09 | Outpatient (CLI) | payer OTHER, SELFPAY ==
[2022-08-09 15:40] LABS: hCG Titer Quant., Serum 1049 mIU/mL (1-3)
== END | disposition home or self-care (01) ==
LOC: LAB 14:39
PROVIDERS: PCP Internal Medicine; Visit Provider Nurse Practitioner Women's Health
DX: N91.2 Amenorrhea, unspecified (principal)
CPT/HCPCS: 36415; 84702

== ENCOUNTER → 2022-09-17 | Outpatient (CLI) | payer OTHER, SELFPAY ==
[2022-09-17 17:54] LABS: Amphetamine Urine VISTA NEGATIVE (<1000 ng/mL); Barbiturate Urine VISTA NEGATIVE (< 200 ng/mL); Benzodiazepine Urine VISTA NEGATIVE (< 200 ng/mL); Cocaine Urine VISTA NEGATIVE (< 300 ng/mL); Ecstacy Urine VISTA NEGATIVE (< 500 ng/mL); Methadone Urine VISTA NEGATIVE (< 300 ng/mL); PCP Urine VISTA NEGATIVE (< 25 ng/mL); THC Urine VISTA NEGATIVE (< 50 ng/mL); Vista UDS pH Range 5
[2022-09-19 22:06] LABS: Chlamydia By Nucleic Acid AMP Negative (Negative)
[2022-09-19 22:15] LABS: Gonococcus By Nucleic Acid AMP Negative (Negative)
== END | disposition home or self-care (01) ==
LOC: LABSPEC 16:14
PROVIDERS: PCP Internal Medicine; Visit Provider Obstetrics & Gynecology
DX: Z34.91 Encounter for supervision of normal pregnancy, unspecified, first trimester (principal); Z3A.09 9 weeks gestation of pregnancy
CPT/HCPCS: 80307; 87086; 87491; 87591

== ENCOUNTER → 2022-10-01 | Outpatient (CLI) | payer OTHER, SELFPAY ==
[2022-10-01 11:43] LABS: Absolute Lymphocyte Count 1.68 X10^3/uL (0.83-4.51); Absolute Neutrophil Count 4.7 X10^3/uL (2.0-7.7); Basophil# 0.03 X10^3/uL; Basophil% 0.4 % (0-1); Eosinophil# 0.07 X10^3/uL; Hematocrit 37.8 % (37-47); Hemoglobin 13.4 g/dL (12.0-15.0); Lymphocyte # 1.68 X10^3/ul (0.83-4.51); Lymphocyte % 23.7 % (19-41); Mean Corp Hgb Conc 35.4 g/dL (32-36); Mean Corpuscular Hgb 31.8 pg (27.0-32.0); Mean Corpuscular Volume 89.8 fL (81-99); Mean Platelet Vol. 9.3 fl (6.2-12.0); Monocyte# 0.45 X10^3/uL; Monocyte% 6.4 % (0-10); NRBC Flagged by Analyzer 0 % (0-5); Neutrophil # 4.74 X10^3/uL (2.7-7.7); Neutrophil % 66.9 % (47-70); Platelet Count 277 K/mm3 (150-450); RBC Distribution Width CV 11.9 % (11.6-14.6); Red Blood Count 4.21 M/mm3 (4.2-5.4); White Blood Count 7.1 K/mm3 (4.4-11.0)
[2022-10-01 12:03] LABS: Glucose Challenge Gest 1H 50g 194 mg/dL (70-140)
[2022-10-01 12:30] LABS: NATERA MAILED SPECIMEN
[2022-10-01 12:44] LABS: HIV - WCH Non-Reactive (Nonreactive); Hepatitis B Surface Antigen Non-Reactive (Nonreactive); Hepatitis C Antibody Non-Reactive (Nonreactive); Rubella IgG Reactive (Nonreactive); Syphilis Antibodies Non-reactive
== END | disposition home or self-care (01) ==
LOC: PAVLAB 11:11
PROVIDERS: PCP Internal Medicine; Referring Provider Obstetrics & Gynecology; Visit Provider Obstetrics & Gynecology
DX: O09.521 Supervision of elderly multigravida, first trimester (principal); Z3A.00 Weeks of gestation of pregnancy not specified
CPT/HCPCS: 36415; 82950; 85025; 86703; 86762; 86780; 86803; 86850; 86900; 86901; 87340

== ENCOUNTER 2022-10-09 12:49 | Outpatient (RCR) | payer OTHER, SELFPAY | END 2022-10-13 23:59 | LOC: DC 12:49 | PROVIDERS: PCP Internal Medicine; Referring Provider Nurse Practitioner Women's Health; Visit Provider Nurse Practitioner Women's Health | DX: O24.419 Gestational diabetes mellitus in pregnancy, unspecified control (principal) | CPT/HCPCS: 97802 ==

== ENCOUNTER 2022-10-16 11:19 | Outpatient (RCR) | payer OTHER, SELFPAY | END 2022-11-13 23:59 | LOC: DC 11:19 | PROVIDERS: PCP Internal Medicine; Referring Provider Nurse Practitioner Women's Health; Visit Provider Nurse Practitioner Women's Health | DX: O24.419 Gestational diabetes mellitus in pregnancy, unspecified control (principal) ==

== ENCOUNTER → 2022-12-10 | Outpatient (CLI) | payer OTHER, SELFPAY ==
[2022-12-10 15:23] LABS: Absolute Lymphocyte Count 1.82 X10^3/uL (0.83-4.51); Absolute Neutrophil Count 5.9 X10^3/uL (2.0-7.7); Basophil# 0.03 X10^3/uL; Basophil% 0.4 % (0-1); Eosinophil# 0.05 X10^3/uL; Eosinophils% 0.6 % (0-5); Hemoglobin 12.1 g/dL (12.0-15.0); Lymphocyte # 1.82 X10^3/ul (0.83-4.51); Lymphocyte % 21.6 % (19-41); Mean Corp Hgb Conc 35.6 g/dL (32-36); Mean Corpuscular Hgb 32.4 pg (27.0-32.0); Mean Corpuscular Volume 91.2 fL (81-99); Mean Platelet Vol. 9.7 fl (6.2-12.0); Monocyte# 0.61 X10^3/uL; Monocyte% 7.2 % (0-10); NRBC Flagged by Analyzer 0 % (0-5); Neutrophil # 5.86 X10^3/uL (2.7-7.7); Neutrophil % 69.6 % (47-70); Platelet Count 249 K/mm3 (150-450); RBC Distribution Width CV 12.5 % (11.6-14.6); RBC Distribution Width SD 41.1 fl (35.1-43.9); Red Blood Count 3.73 M/mm3 (4.2-5.4); White Blood Count 8.4 K/mm3 (4.4-11.0)
[2022-12-10 17:15] LABS: HIV - WCH Non-Reactive (Nonreactive); Hepatitis B Surface Antigen Non-Reactive (Nonreactive); Hepatitis C Antibody Non-Reactive (Nonreactive); Rubella IgG Reactive (Nonreactive); Syphilis Antibodies Non-reactive
== END | disposition home or self-care (01) ==
PROVIDERS: PCP Internal Medicine; Referring Provider Obstetrics & Gynecology; Visit Provider Obstetrics & Gynecology
DX: Z34.90 Encounter for supervision of normal pregnancy, unspecified, unspecified trimester (principal)
CPT/HCPCS: 36415; 85025; 86703; 86762; 86780; 86803; 86850; 86900; 86901; 87340

== ENCOUNTER → 2023-01-21 | Outpatient (CLI) | payer OTHER, SELFPAY ==
--- NOTE | 2023-01-21 12:19 | US_ITS ---
STUDY: SECOND AND THIRD TRIMESTER OBSTETRICAL ULTRASOUND-limited REASON FOR EXAM: Female, 37 years old routine survey LMP: 07/11/2022 TECHNIQUE: Transabdominal TECHNICAL QUALITY: Adequate. PRIOR ULTRASOUND: None. FINDINGS: There is a single intrauterine fetus. The fetus is in a cephalic presentation. There is demonstrated cardiac activity with a heart rate of 138 bpm. There is a subjectively normal amniotic fluid volume. The largest amniotic fluid pocket measures 5.2 x 3.1 cm. The placenta is anterior in location and is not low lying. There are Grade 1 placental changes. The cervix measures 4.6 cm in length. The bilateral adnexal regions are normal. BIOMETRY: BPD: 7.05 cm: 28 weeks, 2 days HC: 26.43 cm: 28 weeks, 5 days AC: 24.11 cm: 28 weeks, 3 days FL: 5.43 cm: 28 weeks, 5 days age by current US: 28 weeks, 3 days. BRANDEE by current US: 04/12/2023. Estimated weight: 1246 grams, +/- 187 grams, 70 %. US/OB Limited With Biometrics IMPRESSION: Single live intrauterine 20 weeks, 3 days by current ultrasound with BRANDEE 04/12/2023. Heart rate at 138 bpm. No suspicious sonographic findings Electronically Signed: Skyler Malhotra MD at 13:05 EDT ,
== END | disposition home or self-care (01) ==
LOC: OPUS 12:18
PROVIDERS: PCP Internal Medicine; Visit Provider Obstetrics & Gynecology
DX: O98.519 Other viral diseases complicating pregnancy, unspecified trimester (principal); U07.1 COVID-19
CPT/HCPCS: 76816

== ENCOUNTER → 2023-02-04 | Outpatient (CLI) | payer OTHER, SELFPAY ==
[2023-02-04 15:05] LABS: Absolute Neutrophil Count 5.6 X10^3/uL (2.0-7.7); Basophil# 0.04 X10^3/uL; Basophil% 0.5 % (0-1); Eosinophil# 0.06 X10^3/uL; Eosinophils% 0.7 % (0-5); Hematocrit 34.9 % (37-47); Hemoglobin 12.2 g/dL (12.0-15.0); Lymphocyte % 17.1 % (19-41); Mean Corpuscular Hgb 31.8 pg (27.0-32.0); Mean Corpuscular Volume 90.9 fL (81-99); Mean Platelet Vol. 9.7 fl (6.2-12.0); Monocyte% 12.2 % (0-10); NRBC Flagged by Analyzer 0 % (0-5); Neutrophil # 5.59 X10^3/uL (2.7-7.7); Neutrophil % 68.4 % (47-70); Platelet Count 214 K/mm3 (150-450); RBC Distribution Width CV 12.6 % (11.6-14.6); RBC Distribution Width SD 41.2 fl (35.1-43.9); Red Blood Count 3.84 M/mm3 (4.2-5.4); White Blood Count 8.2 K/mm3 (4.4-11.0)
[2023-02-04 16:30] LABS: HIV - WCH Non-Reactive (Nonreactive); Syphilis Antibodies Non-reactive
== END | disposition home or self-care (01) ==
LOC: PAVLAB 14:46
PROVIDERS: PCP Internal Medicine; Referring Provider Obstetrics & Gynecology; Visit Provider Obstetrics & Gynecology
DX: O09.90 Supervision of high risk pregnancy, unspecified, unspecified trimester (principal)
CPT/HCPCS: 36415; 85025; 86703; 86780

== ENCOUNTER → 2023-02-21 | Outpatient (CLI) | payer OTHER, SELFPAY ==
--- NOTE | 2023-02-21 14:16 | US_ITS ---
STUDY: SECOND AND THIRD TRIMESTER OBSTETRICAL ULTRASOUND - LIMITED REASON FOR EXAM: Female, 37 years old covid effecting LMP: July 11, 2022. PRIOR ULTRASOUND: Comparison is made with a study January 21, 2023 TECHNIQUE: Transabdominal TECHNICAL QUALITY: Adequate. FINDINGS: There is a single intrauterine fetus. The fetus is in a cephalic presentation. There is demonstrated cardiac activity with a heart rate of 143 bpm. There is a normal amniotic fluid volume. The largest amniotic fluid pocket measures 5.2 cm. The amniotic fluid index (DESTINEE) is 14.6 cm. The placenta is anterior in location and is not low lying. There are Grade 1 placental changes. The cervix measures 3.4 cm in length. BIOMETRY: BPD: 8.4 cm: 33 weeks, 6 days HC: 30.4 cm: 33 weeks, 5 days AC: 28.4 cm: 32 weeks, 3 days FL: 6.5 cm: 33 weeks, 2 days Age by LMP: 32 weeks, 1 days. BRANDEE by LMP: April 17, 2023. age by prior US: 32 weeks, 6 days. BRANDEE by prior US: April 12, 2023. age by current US: 33 weeks, 1 days. BRANDEE by current US: April 10, 2023. Estimated weight: 2107 grams, +/- 360 grams, 68 percentile. US/OB Limited With Biometrics IMPRESSION: Single live intrauterine gestation with a mean gestational age of 32 weeks and 6 days. The measurements obtained today fall within the normal expected range. Electronically Signed: Cristian Ley MD at 15:38 EDT ,
== END | disposition home or self-care (01) ==
LOC: OPUS 14:15
PROVIDERS: PCP Internal Medicine; Referring Provider Obstetrics & Gynecology; Visit Provider Obstetrics & Gynecology
DX: O98.519 Other viral diseases complicating pregnancy, unspecified trimester (principal); U07.1 COVID-19; Z3A.00 Weeks of gestation of pregnancy not specified
CPT/HCPCS: 76816

== ENCOUNTER → 2023-03-21 | Outpatient (CLI) | payer OTHER, SELFPAY ==
--- NOTE | 2023-03-21 11:58 | US_ITS ---
STUDY: SECOND AND THIRD TRIMESTER OBSTETRICAL ULTRASOUND - LIMITED REASON FOR EXAM: Female, 37 years old GROWTH LMP: July 03, 2022. PRIOR ULTRASOUND: Comparison is made with prior study of February 21, 2023. TECHNIQUE: Transabdominal TECHNICAL QUALITY: Adequate. FINDINGS: There is a single intrauterine fetus. The fetus is in a cephalic presentation. There is demonstrated cardiac activity with a heart rate of 133 bpm. There is a normal amniotic fluid volume. The largest amniotic fluid pocket measures 5.4 cm. The amniotic fluid index (DESTINEE) is 15.6 cm. The placenta is anterior in location and is not low lying. There are Grade 1 placental changes. The cervix was not visualized due to the head position. BIOMETRY: BPD: 8.79 cm: 35 weeks, 4 days HC: 31.96 cm: 36 weeks, 0 days AC: 32.26 cm: 36 weeks, 1 days Age by LMP: 36 weeks, 1 days. BRANDEE by LMP: April 17, 2023. age by prior US: 37 weeks, 1 days. BRANDEE by prior US: April 10, 2023. age by current US: 35 weeks, 0 days. BRANDEE by current US: April 25, 2023. Estimated weight: 2523 grams, +/- 370 grams, 20 percentile. US/OB Limited With Biometrics IMPRESSION: Single live intrauterine gestation with a mean gestational age of 37 weeks and 1 day. The measurements obtained today fall within normal expected range. Electronically Signed: Cristian Ley MD at 9:12 EDT ,
== END | disposition home or self-care (01) ==
LOC: OPUS 11:56
PROVIDERS: PCP Internal Medicine; Referring Provider Obstetrics & Gynecology; Visit Provider Obstetrics & Gynecology
DX: O98.519 Other viral diseases complicating pregnancy, unspecified trimester (principal); U07.1 COVID-19; Z3A.00 Weeks of gestation of pregnancy not specified
CPT/HCPCS: 76816

== ENCOUNTER → 2023-03-25 | Outpatient (CLI) | payer OTHER, SELFPAY | END | disposition home or self-care (01) | LOC: LABSPEC 10:06 | PROVIDERS: PCP Internal Medicine; Referring Provider Registered Nurse; Visit Provider Registered Nurse | DX: O09.90 Supervision of high risk pregnancy, unspecified, unspecified trimester (principal); Z3A.00 Weeks of gestation of pregnancy not specified | CPT/HCPCS: 87081 ==

== ENCOUNTER 2023-04-09 16:09 | Inpatient (IN) | payer OTHER, SELFPAY ==
[2023-04-09] VITALS (15 sets, daily range): BP systolic 110–150; BP diastolic 63–90; PULSE 74–91; TEMP 36.3–37; BMI 37.5
[2023-04-09 16:09] LABS: ROM Internal Control Test YES-OK TO RESULT pt. (Internal QC)
[2023-04-09 16:15] LABS: ROM Patient Test POSITIVE (Negative); Record Kit Lot#, ROM+ K1374
[2023-04-09 16:56] LABS: Bedside Glucose 77 mg/dL (74-106)
[2023-04-09] MEDS: Lactated Ringers 1,000 ML 50 ML IV (17:00)
[2023-04-09] MEDS: LACTATED RINGERS 500 ML 999 ML IV (17:00)
[2023-04-09 17:10] LABS: Absolute Neutrophil Count 9.5 X10^3/uL (2.0-7.7); Basophil# 0.05 X10^3/uL; Basophil% 0.4 % (0-1); Eosinophil# 0.03 X10^3/uL; Eosinophils% 0.2 % (0-5); Hematocrit 39.3 % (37-47); Hemoglobin 13.8 g/dL (12.0-15.0); Lymphocyte % 14.7 % (19-41); Mean Corp Hgb Conc 35.1 g/dL (32-36); Mean Corpuscular Hgb 31.6 pg (27.0-32.0); Mean Corpuscular Volume 89.9 fL (81-99); Mean Platelet Vol. 10.9 fl (6.2-12.0); Monocyte# 0.76 X10^3/uL; Monocyte% 6.2 % (0-10); NRBC Flagged by Analyzer 0 % (0-5); Neutrophil # 9.46 X10^3/uL (2.7-7.7); Neutrophil % 77.4 % (47-70); Platelet Count 218 K/mm3 (150-450); RBC Distribution Width CV 12.9 % (11.6-14.6); RBC Distribution Width SD 42.5 fl (35.1-43.9); Red Blood Count 4.37 M/mm3 (4.2-5.4); White Blood Count 12.2 K/mm3 (4.4-11.0)
[2023-04-09] MEDS: Oxytocin 15 Units/NS 250ml 15 UNITS/250 ML IV.SOLN 83 UNITS IV (17:57)
--- NOTE | 2023-04-09 17:57 | HP.PCM.OB_ITS ---
HPI - General General Date of Admission: 04/09/23 Date of Service: 04/09/23 HPI Narrative EDU [place], is a 37 F who presents at 38.6 week IAL/SROM Maternal Data Information BRANDEE Calculator Estimated Delivery Date Method Current WG Current Estimate 04/17/23 LMP (Certain) 38w 6d Final BRANDEE: 04/17/23 Final BRANDEE Source: US >20 weeks Gestational age: 38.6 weeks PFSH PFSH Medical History (Updated 04/09/23 @ 18:00 by Alison Cochran CNM) Abnormal Pap smear of cervix GERD (gastroesophageal reflux disease) Gestational diabetes Hiatal hernia Other skin changes Vitamin D deficiency Home Medications PNV 153-FA 400 mcg-om3 35 mg-dha 25 mg-epa 5 mg-fish oil chew tablet 1 tab PO DAILY 09/04/22 [History Last Taken Unknown] vitamin C 30 mg-zinc citrate 1.1 mg-elderberry 25 mg chewable tablet (Sambucus Elderberry) 1 tab PO DAILY supplement 09/04/22 [History Last Taken Unknown] blood-glucose meter #1 ea 10/03/22 [Rx Last Taken Unknown] blood sugar diagnostic (Accu-Chek Guide test strips) #100 ea 10/09/22 [Rx Last Taken Unknown] lancets 33 gauge (BD Ultra Fine Lancets) #100 ea 10/09/22 [Rx Last Taken Unknown] aspirin 81 mg tablet,delayed release (Adult Aspirin Regimen) 81 mg PO HS hx covid in 11/13/22 [History Last Taken 04/07/23 22:00 81 mg] insulin NPH isoph U-100 human 100 unit/mL (3 mL) subcutaneous pen (Novolin N FlexPen) 33 unit subcut QPM GDM 03/15/23 [History Last Taken 04/08/23 20:00 33 units] Allergy/AdvReac Type Severity Reaction Status Date / Time No Known Allergies Allergy Verified 04/08/23 14:20 Family History Mother Hypertension Aunt Breast cancer, Onset Age: 45 Maternal Surgical History History of placement of ear tubes History of tonsillectomy and adenoidectomy Hx of cholecystectomy [place] teeth extracted Social History adopted: No household members: spouse and children housing: house number of children: 1 current occupational status: employed current occupation: [employer] current occupational exposures/hazards: No pets and animals: Yes (Not managing litterbox) pets and animals: cat(s) history of recent travel: No sexually active: Yes Smoking Status: Never smoker alcohol intake: never substance use type: does not use well-balanced diet: daily or most days caffeine: No eating out: rarely or never during the past year weight has: increased > 10 lbs what type of physical activity do you participate in: none jeffy/mormonism: None seatbelt use: always do you feel safe at home: Yes additional social history: Qxufqwc-Dyjxsgy-Ssfavbhwv 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 Date Name GA/Weeks Outcome Route Bth Weight Infant Gen Labor Lgth Anesthesia Del Locatn Provider FOB 09/05/18 Luan 38 live - full term 7lbs 11oz Female 7 hours epidural [facility] Dr. Kade Parks Delivery Date: 09/05/18 Last Updated by: Kirsten Queen Elevated blood pressure Visit Details Expected Delivery Route/Plan Labor Preferences- CB/BF classes: [] labor support person: [] labor intervention preferences: [] pain management options preferred: [] cut cord/dad catch: dad would like to catch : [] PP control planned: [] discussed possible routes of delivery and associated risks: [] special requests: [] Plans Covid status: discussed Flu vaccine: discussed Tdap vaccine: [] Rhogam: [] LARC form signed: completed Problem list reviewed and updated with the most current plan of care details and appropriate orders placed. Relevant counseling for the gestational age provided. Continue routine care and follow up unless otherwise noted in visit notes/problem list details OB Flowsheet Initial Weight: Not Recorded Date -?-?-?-?-?-?-?-?-?-?-?-?- EGA Weight BP Urine Prot -?-?-?-?-?-?-?-?-?-?-?-?- Glucose FHR FuHt Pres Dilation -?-?-?-?-?-?-?-?-?-?-?-?- Effaced St Visit Note 09/17/22 -?-?-?-?-?-?-?-?-?-?-?-?- 9w 5d 217 lb 116/80 -?-?-?-?-?-?-?-?-?-?-?-?- 170 -?-?-?-?-?-?-?-?-?-?-?-?- SM- CRL 3 cm con s with LMP 10/16/22 -?-?-?-?-?-?-?-?-?-?-?-?- 13w 6d 216 lb 119/78 Negative -?-?-?-?-?-?-?-?-?-?-?-?- Negative 157 -?-?-?-?-?-?-?-?-?-?-?-?- MH-No VB. Br US confirm live IUP. Nausea controlled with unisom. Now on insulin QHS 11/13/22 -?-?-?-?-?-?-?-?-?-?-?-?- 17w 6d 218 lb 120/85 Negative -?-?-?-?-?-?-?-?-?-?-?-?- Negative 158 -?-?-?-?-?-?-?-?-?-?-?-?- JV- no complaint s today. FOB has a lymphangioma that is being worked up. glucose levels normal on insulin with Dr. Templeton. 12/10/22 -?--?-?-?-?-?-?-?-?-?-?-?- 21w 5d 217 lb 8 oz 131/80 -?-?-?-?-?-?-?-?-?-?-?-?- 150 -?-?-?-?-?-?-?-?-?-?-?-?- SM- no vb crampi ng, BS controlled. 01/07/23 -?-?-?-?-?-?-?-?-?-?-?-?- 25w 5d 220 lb 8 oz 128/84 -?-?-?-?-?-?-?-?-?-?-?-?- 145 -?-?-?-?-?-?-?-?-?-?-?-?- SM- no vb lof go od fm no reuglar ctx. BS reviewed. 02/04/23 -?-?-?-?-?-?-?-?-?-?-?-?- 29w 5d 223 lb 6 oz 126/87 Nega tive -?-?-?-?-?-?-?-?-?-?-?-?- Negative 140 -?-?-?-?-?-?-?-?-?-?-?-?- SM- no vb lof go od fm no regular ctx tdap given 02/18/23 -?-?-?-?-?-?-?-?-?-?-?-?- 31w 5d 220 lb 111/73 Negative -?-?-?-?-?-?-?-?-?-?-?-?- Negative 140 32 -?-?-?-?-?-?-?-?-?-?-?-?- SM- BS reviewed no vb lof good fm n oregular ctx 02/28/23 -?-?-?-?-?-?-?-?-?-?-?-?- 33w 1d 222 lb 8 oz 130/84 -?-?-?-?-?-?-?-?-?-?-?-?- -?-?-?-?-?-?-?-?-?-?-?-?- SM- nst 03/04/23 -?-?-?-?-?-?-?-?-?-?-?-?- 33w 5d 222 lb 6 oz 132/84 Nega tive -?-?-?-?-?-?-?-?-?-?-?-?- Negative 130 -?-?-?-?-?-?-?-?-?-?-?-?- SM- no vb lof go od fm no regular ctx 03/07/23 -?-?-?-?-?-?-?-?-?-?-?-?- 34w 1d 227 lb 4 oz 138/82 138/82 -?-?-?-?-?-?-?-?-?-?-?-?- 130 -?-?-?-?-?-?-?-?-?-?-?-?- KW-NST 03/15/23 -?-?-?-?-?-?-?-?-?-?-?-?- 35w 2d 226 lb 2 oz 123/83 123/83 Negative -?-?-?-?-?-?-?-?-?-?-?-?- Negative 135 -?-?-?-?-?-?-?--?-?-?-?-?- [id number] 03/21/23 -?-?-?-?-?-?-?-?-?-?-?-?- 36w 1d 227 lb 122/82 Negative -?-?-?-?-?-?-?-?-?-?-?-?- Negative 140 -?-?-?-?-?-?-?-?-?-?-?-?- SM- reviewed BS controlled, no vb lof good fm no regular ctx NST reactive plan IOL 39 03/25/23 -?-?-?-?-?-?-?-?-?-?-?-?- 36w 5d 227 lb 2 oz 123/82 Nega tive -?-?-?-?-?-?-?-?-?-?-?-?- Negative 140 37 -?-?-?-?-?-?-?-?-?-?-?-?- LC- nst reactive . no lof/vb/ctx. good fm. gbs obtained today. 03/28/23 -?-?-?-?-?-?-?-?-?-?-?-?- 37w 1d 228 lb 2 oz 119/83 Nega tive -?-?-?-?-?-?-?-?-?-?-?-?- Negative 145 -?-?-?-?-?-?-?-?-?-?-?-?- JV- nst reactive . lots of stress at home with daughter having poison isabela. overall no lof, vaginal bleeding, or dec fm 04/01/23 -?-?-?-?-?-?-?-?-?-?-?-?- 37w 5d 227 lb 8 oz 133/85 -?-?-?-?-?-?-?-?-?-?-?-?- -?-?-?-?-?-?-?-?-?-?-?-?- discussed IOL ne xt at 39w1d per patient request 04/04/23 -?-?-?-?-?-?-?-?-?-?-?-?- 38w 1d 228 lb 8 oz 122/74 Nega tive -?-?-?-?-?-?-?-?-?-?-?-?- Negative 150 -?-?-?-?-?-?-?-?-?-?-?-?- MH-NST only reac tive NST FHR Rate Baby A Baseline: 125 Variability:: Moderate Accelerations:: 15 x 15 Decelerations:: None NST Reactive:: Yes FHR Category:: Category I ROS Constitutional Constitutional: Denies change in weight, fatigue, fever(s), headache(s), poor appetite or weakness Eyes Eyes: Denies blurry vision, change in vision, floaters, seeing flashes or spots in vision ENT HEENT: Denies dizziness, headache(s), loss taste/smell or sore throat Cardiovascular Cardiovascular: Denies chest pain, dizziness, dyspnea, irregular heart rhythm, lightheadedness, palpitations or rapid heart rate Respiratory/Chest Respiratory/Chest: Denies change in mental status, chest tightness, cough, dyspnea or breast pain Gastrointestinal Gastrointestinal: Denies anorexia, chewing difficulty, constipation, diarrhea or weight changes Genitourinary Genitourinary: Denies difficulty urinating, dysuria, flank pain, genital pain, urinary frequency or urinary urgency Musculoskeletal Musculoskeletal: Denies back pain, difficulty walking, extremity pain, joint pain, muscle cramps or muscle weakness Integumentary Integumentary: Denies lesions or unusual bruising Neurologic Neurologic: Denies abnormal movements, abnormal speech, dizziness, numbness, seizure-like activity, syncope or weakness Psychiatric Psychiatric: Denies behavioral changes, change in appetite, confusion, depression, homicidal ideation, suicidal ideation or suicidal thoughts Endocrine Endocrinology: Denies excessive sweating, polydipsia or polyuria Hematologic/Lymphatic Hematologic/Lymphatic: Denies anemia Allergic/Immunologic Allergic/Immunologic: Denies itchy eyes, lip swelling, throat swelling, tongue swelling or wheezing Vital Signs Vital Signs Vital Signs: 04/09/23 15:37 04/09/23 15:37 04/09/23 15:57 Temperature Temperature Source Temporal Pulse Rate 86 Blood Pressure 136/75 H BP Systolic 136 BP Diastolic 75 04/09/23 15:57 04/09/23 16:31 04/09/23 16:31 Temperature 97.6 F L Temperature Source Pulse Rate 74 Blood Pressure 142/86 H BP Systolic 142 BP Diastolic 86 04/09/23 17:52 04/09/23 17:52 04/09/23 17:53 Temperature Temperature Source Temporal Pulse Rate 81 Blood Pressure 126/79 H BP Systolic 126 BP Diastolic 79 04/09/23 17:53 Temperature 97.4 F L Temperature Source Pulse Rate Blood Pressure BP Systolic BP Diastolic Weight Weight: 225 lb 12.054 oz Body Mass Index (BMI) 37.5 Physical Exam Const alert, oriented x3 and no apparent distress General Appearance: cooperative Orientation / Consciousness: awake HEENT normocephalic Neck full ROM Lymph Lymphatic: no lymphadenopathy noted Chest inspection of chest normal Resp normal respiratory effort and normal air movement Effort and Inspection: able to speak in complete sentences and symmetric chest movement GI soft to palpation and non-tender Inspection: gravid Palpation: soft; Negative for tender external exam normal Manual OB Exam: estimated gestational size, presentation cephalic, dilated 4, effaced 70 and station -1 Back/Spine normal to inspection Extremity normal to inspection and full ROM Skin no rashes or lesions noted Psych mental status grossly normal Appearance: grossly normal Speech: normal speech Labs Labs Labs: Blood Type B POSITIVE Antibody Screen NEGATIVE Hct 39.3 % (37-47) Hgb 13.8 g/dL (12.0-15.0) Obstetrics US Syphilis Total Ab Non-reactive Rubella IgG Antibody Reactive (Nonreactive) Hep Bs Antigen Non-Reactive (Nonreactive) Chlamydia DNA (CHAIM) Negative (Negative) Neisseria gonorrhoeae DNA (CHAIM) Negative (Negative) HIV 1&2 Antibody Non-Reactive (Nonreactive) Glucose 1 Hr 50 gm 194 mg/dL (70-140) H Group B Strep DNA Negative (Negative) Rhogam given: No Miscellaneous Test Assessment & Plan (1) : QUALIFIERS: Weeks of gestation: 37 weeks Qualified Code(s): Z3A.37 - 37 weeks gestation of COMMENT: GBS negative. anatomy nl, NIPT low risk, declined carrier testing. afp neg. (2) Supervision of high risk , antepartum: COMMENT: [id number], BRANDEE 04/17/23 surprise PC Luan, Charly (3) Active labor at term: COMMENT: SROM PLAN: Patient presents IAL, plan expectant management for , pitocin/AROM PRN if needed. Pain management: plans epidural. GBS neg. Management of any complications: Type 2 DM I have reviewed the [facility] and made any clinically relevant updates. (4) Obesity affecting : COMMENT: 1 TM GCT, healthy weight gain encouraged. (5) AMA (advanced maternal age) multigravida 35+: COMMENT: low risk nipt, plan 36 week growth US(20%ile). 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 Insulin @ HS. plan 2x weekly testing at 32 and growth q 4 weeks. Charges/Coding Multi Select Codes Urinary/Genital Urinary/Genital CPT Codes: No Charge
--- NOTE | 2023-04-09 18:01 | OP.PCM_ITS ---
Assessment & Plan (1) Vaginal delivery: COMMENT: KW 38.6 IAL-SROM Type 2 DM (2) : QUALIFIERS: Weeks of gestation: 37 weeks Qualified Code(s): Z3A.37 - 37 weeks gestation of COMMENT: GBS negative. anatomy nl, NIPT low risk, declined carrier testing. afp neg. (3) Supervision of high risk , antepartum: COMMENT: [id number], BRANDEE 04/17/23 surprise PC Luan, Charly (4) Obesity affecting : COMMENT: 1 TM GCT, healthy weight gain encouraged. (5) AMA (advanced maternal age) multigravida 35+: COMMENT: low risk nipt, plan 36 week growth US(20%ile). 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 Insulin @ HS. plan 2x weekly testing at 32 and growth q 4 weeks. Maternal Data Information BRANDEE Calculator Estimated Delivery Date Method Current WG Current Estimate 04/17/23 LMP (Certain) 38w 6d Final BRANDEE: 04/17/23 Final BRANDEE Source: US >20 weeks Gestational age: 38.5 weeks Vaginal Delivery Maternal Presentation Maternal Presentation: Active Labor and Spontaneous Rupture of Membranes Maternal Presentation: Patient began pushing and delivered the head in the OLEG presentation. The head was delivered atraumatically and a loose nuchal cord ?1 was identified and easily reduced over the 's head. The anterior and posterior shoulders delivered without complication followed by the rest of the and the was placed on the maternal abdomen. Delayed cord clamping was employed for approximately 3 minutes. Cord was clamped and cut and gentle traction was applied to the cord and the placenta delivered spontaneously immediately f ollowing it was noted to be intact with three-vessel cord. The perineum and vagina were inspected and noted to have no laceration. EBL was 100 cc. Patient and infant tolerated delivery well. Apgars 9/9. Operative Information Date of Procedure: 04/09/23 Pre-Operative Diagnosis: See AP comments Post-Operative Diagnosis: Same Surgery / Procedure Performed: Spontaneous Vaginal Delivery [employer]: Alison Cochran Type of Anesthesia: None Estimated Blood Loss: 100 Time of Delivery: 17:37 Findings Presentation: Vertex Amniotic Membrane Rupture Type: Spontaneous Time of Membrane Rupture: 1300 Amniotic Fluid Description: Clear Placental Delivery Description: Spontaneous Placenta Disposition: [facility] Cord Vessel Description: 3 Vessels Cord Entanglement: Around neck x 1, loose Infant A Gender: Female (1 minute): 9 (5 minute): 9 Delayed Cord Clamping: Yes Post Vaginal Delivery Medications Given After Delivery: IV Pitocin Episiotomy Description: None Laceration: None Complication Complications: None Multi Select Codes Urinary/Genital Urinary/Genital CPT Codes: 25428 Vaginal Delivery [facility]
[2023-04-09 18:04] LABS: Bedside Glucose 96 mg/dL (74-106)
--- NOTE | 2023-04-09 18:05 | DCINST_ITS ---
Discharge Instructions Diet Discharge Diet: No restrictions Activity Discharge Activity: Return to Normal Activity May resume sexual activity in: 6-8 weeks Dressing / Incision Call your doctor if you observe: Fever of 101 or Higher, Coldness, Increased Pain, Numbness or Tingling, Change in Color, Inability to urinate, Inability to have a bowel movement, Using more than 1 pad per hour, Shortness of breath, Dizziness, Fainting spells, Swelling in the ankles, Chest pain, Increased palpitations (irregular heartbeat), Calf discomfort and Uncontrolled pain Follow Up Care Please Follow Up With: Alison Cochran CNM When: Please call the office to schedule your follow up appointment in 6 weeks. If you had high blood pressure please call to schedule an appointment in 2 weeks. Test Results: Test results from this visit will be discussed in further detail at your follow- up appointment, if applicable. Discharge Plan Admission Admit Date/Time: 04/09/23 16:09 Attending Provider: Alison Cochran Primary Care Provider: Felipe Ingram Discharge Orders/Prescriptions Prescriptions: No Action PNV no.[id number] 400 mcg-35 mg- 25 mg-5 mg tablet,chewable 1 tab PO DAILY Sambucus Elderberry 30-1.1-25 mg tablet,chewable 1 tab PO DAILY aspirin [Adult Aspirin Regimen] 81 mg tablet,delayed release (DR/EC) 81 mg PO HS Novolin N FlexPen 100 unit/mL (3 mL) insulin pen 33 unit subcut QPM (DME) blood-glucose meter Misc See Rx Instructions .ROUTE .MEDSUPPLY Qty: 1 0RF Rx Instructions: As directed- Test fasting and 2 hours after meals (DME) Accu-Chek Guide test strips Strip See Rx Instructions .Route Qty: 100 12RF Rx Instructions: test fasting and 2 hours post meals(4times pr day) (DME) lancets [BD Ultra Fine Lancets] 33 gauge misc See Rx Instructions .ROUTE .MEDSUPPLY Qty: 100 8RF Rx Instructions: test fasting and 2 hours post meals(4 times per day) Referrals / Follow Up: Felipe Ingram MD [Primary Care Provider] -
[2023-04-09 18:13] LABS: Syphilis Antibodies Non-reactive
--- NOTE | 2023-04-09 19:25 | NURSING ---
POC BGT at 1840 is 90 mg/dl. Provider aware.
[2023-04-09] MEDS: Carboprost Tromethamine 250 MCG/ML Ampul IM (20:02)
[2023-04-09] MEDS: Insulin NPH Human 100 UNITS/ML PEN 16 UNITS SC (22:29)
[2023-04-09 22:50] LABS: Bedside Glucose 113 mg/dL (74-106)
[2023-04-10 00:21] VITALS: BP 115/87; PULSE 80; RESP 18
[2023-04-10 06:09] LABS: Bedside Glucose 69 mg/dL (74-106)
[2023-04-10 08:05] VITALS: BP 113/60; PULSE 85; RESP 16; TEMP 36.5; O2SAT 96
--- NOTE | 2023-04-10 08:16 | PN.OBGYN_ITS ---
Subjective Subjective Patient doing well without complaints. Tolerating PO. Ambulating and voiding without difficulty. Feeding well. Denies chest pain, shortness of breath, calf pain/swelling, fevers, chills, lightheadedness. Objective Data Objective Data Vital Signs: Vital Signs Temp Pulse Resp BP Pulse Ox O2 Del Method 97.7 F L 85 16 113/60 96 Room Air 04/10/23 08:05 04/10/23 08:05 04/10/23 08:05 04/10/23 08:05 04/10/23 08:05 04/10/23 08:05 Oxygen Delivery Method Room Air Weight: 225 lb 12.054 oz Body Mass Index (BMI) 37.5 Intake & Output: Intake and Output for Last 24 Hours 04/08/23 04/09/23 04/10/23 23:59 23:59 23:59 Intake Total 719.95 / 719.95 Output Total 500 / 500 Balance 219.95 / 219.95 Lab / Micro Data 04/09/23 16:40 Labs: Laboratory Results - last 24 hr 04/09/23 15:40: Vag Amniotic Fld Detect POSITIVE H 04/09/23 16:35: POC Glucose 77 04/09/23 16:40: WBC 12.2 H, RBC 4.37, Hgb 13.8, Hct 39.3, MCV 89.9, MCH 31.6, MCHC 35.1, RDW Std Deviation 42.5, RDW Coeff of Gus 12.9, Plt Count 218, MPV 10.9, Immature Gran % (Auto) 1.100 H, Neut % (Auto) 77.4 H, Lymph % (Auto) 14.7 L, Mccormick % (Auto) 6.2, Eos % (Auto) 0.2, Baso % (Auto) 0.4, Absolute Neuts (auto) 9.5 H, Absolute Lymphs (auto) 1.80, Nucleated RBC % 0, Syphilis Total Ab Non- reactive, Blood Type B POSITIVE, Antibody Screen NEGATIVE 04/09/23 17:35: POC Glucose 96 04/09/23 22:28: POC Glucose 113 H 04/10/23 05:49: POC Glucose 69 L ROS Constitutional Constitutional: Denies chills, fatigue, fever(s), poor appetite or weakness Eyes Eyes: Denies blurry vision, change in vision, seeing flashes or spots in vision ENT HEENT: Denies dizziness, headache(s), loss taste/smell or sore throat Cardiovascular Cardiovascular: Denies chest pain, dizziness, dyspnea, irregular heart rhythm, palpitations or rapid heart rate Respiratory/Chest Respiratory/Chest: Denies chest tightness, cough, dyspnea or breast pain Gastrointestinal Gastrointestinal: Denies abdominal pain, constipation or vomiting Genitourinary Genitourinary: Denies dysuria or flank pain Musculoskeletal Musculoskeletal: Denies difficulty walking, joint pain, limited range of motion or numbness Neurologic Neurologic: Denies abnormal movements, abnormal speech, dizziness, numbness, seizure-like activity or syncope Psychiatric Psychiatric: Denies anxiety, behavioral changes, change in appetite, confusion, depression or suicidal thoughts Physical Exam Const alert, oriented x3 and no apparent distress General Appearance: cooperative and comfortable Resp normal respiratory effort Cardio regular rate GI normal to inspection, nondistended, normoactive bowel sounds GI Narrative: uterus is firm below umbilicus Palpation: soft Back/Spine no CVA tenderness and thoraco-lumbar ROM normal Extremity normal to inspection, no clubbing, cyanosis or edema, no calf tenderness and no pedal edema Psych mental status grossly normal, thought process normal, cooperative, affect normal, speech normal, activity/motor behavior normal, denies homicidal ideation and denies suicidal ideation Assessment & Plan (1) Vaginal delivery: COMMENT: KW 38.6 IAL-SROM Type 2 DM girl PLAN: Plan s/p PPD # 1 1. routine post delivery care 2. breast feeding- support given 3. rh positive 4. rubella immune 5. half insulin again to 7 and stop if fasting glucose level in the 60's then follow up with Dr. Templeton 6. ok to hi to home shirley
[2023-04-10 12:12] LABS: Bedside Glucose 75 mg/dL (74-106)
[2023-04-10 12:28] VITALS: BP 121/81; PULSE 89; RESP 16; TEMP 36.9; O2SAT 96
[2023-04-10 17:20] VITALS: BP 124/82; PULSE 83; RESP 16; TEMP 36.2; O2SAT 99
[2023-04-10 17:43] LABS: Bedside Glucose 127 mg/dL (74-106)
[2023-04-11 09:52] VITALS: PULSE 70; O2SAT 100
[2023-04-11 09:53] VITALS: BP 124/74; PULSE 70
[2023-04-11 09:57] VITALS: PULSE 71; O2SAT 99
[2023-04-11 10:03] VITALS: PULSE 77; O2SAT 100
== END 2023-04-10 19:15 | disposition home or self-care (01) | DRG 807 ==
LOC: WPOUT 16:13 → WP 16:13
PROVIDERS: Admitting Provider Advanced Practice Midwife; PCP Internal Medicine; Referring Provider Advanced Practice Midwife; Visit Provider Advanced Practice Midwife
DX: O24.12 Pre-existing type 2 diabetes mellitus, in childbirth (principal); Z37.0 Single live birth; O42.913 Preterm premature rupture of membranes, unspecified as to length of time between rupture and onset of labor, third trimester; Z79.4 Long term (current) use of insulin; O69.81X0 Labor and delivery complicated by cord around neck, without compression, not applicable or unspecified; O99.214 Obesity complicating childbirth; Z3A.37 37 weeks gestation of pregnancy; Z79.82 Long term (current) use of aspirin; Z86.16 Personal history of COVID-19; Z87.59 Personal history of other complications of pregnancy, childbirth and the puerperium
CPT/HCPCS: 59025; 59050; 82962; 84112; 85025; 86780; 86850; 86900; 86901; 99221; J7120; G0378

== ENCOUNTER → 2023-06-24 | Outpatient (CLI) | payer OTHER, SELFPAY ==
[2023-06-24 15:17] LABS: Absolute Lymphocyte Count 2.27 X10^3/uL (0.83-4.51); Absolute Neutrophil Count 2.9 X10^3/uL (2.0-7.7); Basophil# 0.05 X10^3/uL; Basophil% 0.9 % (0-1); Eosinophil# 0.06 X10^3/uL; Eosinophils% 1.1 % (0-5); Hematocrit 41.5 % (37-47); Hemoglobin 14.5 g/dL (12.0-15.0); Lymphocyte # 2.27 X10^3/ul (0.83-4.51); Lymphocyte % 40.1 % (19-41); Mean Corp Hgb Conc 34.9 g/dL (32-36); Mean Corpuscular Hgb 30.6 pg (27.0-32.0); Mean Corpuscular Volume 87.6 fL (81-99); Mean Platelet Vol. 10.4 fl (6.2-12.0); Monocyte# 0.41 X10^3/uL; Monocyte% 7.2 % (0-10); NRBC Flagged by Analyzer 0 % (0-5); Neutrophil # 2.85 X10^3/uL (2.7-7.7); Neutrophil % 50.3 % (47-70); Platelet Count 320 K/mm3 (150-450); RBC Distribution Width CV 12.1 % (11.6-14.6); RBC Distribution Width SD 38.8 fl (35.1-43.9); Red Blood Count 4.74 M/mm3 (4.2-5.4); White Blood Count 5.7 K/mm3 (4.4-11.0)
[2023-06-24 15:37] LABS: ALB/GLOB Ratio 1.1 RATIO (0.9-2.4); AST(SGOT) 12 U/L (15-37); Alanine Aminotransfer ALT/SGPT 20 U/L (13-56); Albumin, Serum 3.8 g/dL (3.2-5.0); Alkaline Phosphatase 66 U/L (45-117); Anion Gap 12 (5-15); BUN 10 mg/dL (7-18); BUN/Creat Ratio 16.5 RATIO (10-20); Chloride 105 mmol/L (98-107); Cholesterol 179 mg/dL (200); Creatinine, Serum 0.61 mg/dL (0.55-1.02); EST Glomerular Filtration Rate 119 mL/min (>60); Est Glom Filt Rate - Afr Amer 144 mL/min (>60); Globulin 3.6 g/dL (2.2-4.2); Glucose 79 mg/dL (74-106); High Density Lipoprotein 57 mg/dL; Potassium 3.7 mmol/L (3.5-5.1); Protein, Total 7.4 g/dL (6.4-8.2); Sodium Level 139 mmol/L (136-145); Triglycerides 59 mg/dL; Very Low Density Lipoprotein 12 mg/dL (5-40)
[2023-06-24 16:07] LABS: Hemoglobin A1c 4.9 % (3.8-5.6)
== END | disposition home or self-care (01) ==
LOC: BIMLAB 13:18
PROVIDERS: PCP Internal Medicine; Referring Provider Internal Medicine; Visit Provider Internal Medicine
DX: O24.419 Gestational diabetes mellitus in pregnancy, unspecified control (principal); Z3A.00 Weeks of gestation of pregnancy not specified
CPT/HCPCS: 36415; 80053; 80061; 83036; 85025

== ENCOUNTER → 2023-11-22 | Outpatient (CLI) | payer OTHER, SELFPAY ==
[2023-11-22 12:10] LABS: Absolute Neutrophil Count 3.2 X10^3/uL (2.0-7.7); Basophil# 0.06 X10^3/uL; Eosinophil# 0.06 X10^3/uL; Hematocrit 37.8 % (37-47); Hemoglobin 13.4 g/dL (12.0-15.0); Lymphocyte % 36.9 % (19-41); Mean Corp Hgb Conc 35.4 g/dL (32-36); Mean Corpuscular Hgb 31.2 pg (27.0-32.0); Mean Corpuscular Volume 88.1 fL (81-99); Mean Platelet Vol. 9.7 fl (6.2-12.0); Monocyte# 0.42 X10^3/uL; NRBC Flagged by Analyzer 0 % (0-5); Neutrophil % 53.6 % (47-70); Platelet Count 346 K/mm3 (150-450); RBC Distribution Width CV 11.7 % (11.6-14.6); RBC Distribution Width SD 37.3 fl (35.1-43.9); Red Blood Count 4.29 M/mm3 (4.2-5.4)
[2023-11-22 12:28] LABS: Vitamin D,25 Hydroxy 34.5 ng/mL
[2023-11-22 12:40] LABS: ALB/GLOB Ratio 1.1 RATIO (0.9-2.4); AST(SGOT) 8 U/L (15-37); Alanine Aminotransfer ALT/SGPT 18 U/L (13-56); Albumin, Serum 3.6 g/dL (3.2-5.0); Alkaline Phosphatase 59 U/L (45-117); Anion Gap 5 (5-15); BUN 12 mg/dL (7-18); Calcium,Total 8.6 mg/dL (8.5-10.1); Chloride 111 mmol/L (98-107); Creatinine, Serum 0.54 mg/dL (0.55-1.02); EST Glomerular Filtration Rate 134 mL/min (>60); Est Glom Filt Rate - Afr Amer 163 mL/min (>60); Globulin 3.3 g/dL (2.2-4.2); Glucose 88 mg/dL (74-106); Potassium 3.8 mmol/L (3.5-5.1); Protein, Total 6.9 g/dL (6.4-8.2); Sodium Level 141 mmol/L (136-145); T4 Free Direct 0.91 ng/dL (0.76-1.46); Thyroid Stim Hormone (TSH) 1.22 uIU/mL (0.358-3.74)
== END | disposition home or self-care (01) ==
LOC: BIMLAB 11:00
PROVIDERS: PCP Internal Medicine; Referring Provider Internal Medicine; Visit Provider Internal Medicine
DX: Z13.29 Encounter for screening for other suspected endocrine disorder (principal); E55.9 Vitamin D deficiency, unspecified; R53.81 Other malaise; R53.83 Other fatigue
CPT/HCPCS: 36415; 80053; 82306; 84439; 84443; 85025

== ENCOUNTER → 2024-03-06 | Outpatient (CLI) | payer OTHER, SELFPAY ==
--- NOTE | 2024-03-06 14:00 | US_ITS ---
INDICATION: PALPABLE LUMP SHOULDER EXAMINATION: Left Lower extremity nonvascular ultrasound. TECHNIQUE: Routine grayscale and color imaging obtained. FINDINGS: 1. Targeted ultrasound examination of the area of palpable abnormality in RIGHT shoulder documents at 1.0 x 0.6 x 0.4 cm ovoid structure with a fatty hilum corresponding to the palpable abnormality in the subcutaneous soft tissues. This has the configuration and appearance of a lymph node. No abnormal blood flow. 2. The remaining muscular fascial planes and subcutaneous soft tissues have normal appearance. US/Ext Non Vasc Limited/Soft Tiss IMPRESSION: 1. 1.0 x 0.6 x 0.4 cm lymph node corresponding to the area of palpable abnormality. This is located in the subcutaneous soft tissues. No abnormal blood flow or abnormal fluid collections. Electronically Signed: Adithya Vee MD at 0:08 EDT ,
== END | disposition home or self-care (01) ==
LOC: US 13:42
PROVIDERS: PCP Internal Medicine; Referring Provider Physician Assistant; Visit Provider Physician Assistant
DX: R22.9 Localized swelling, mass and lump, unspecified (principal)
CPT/HCPCS: 76882

== ENCOUNTER → 2024-05-28 | Outpatient (CLI) | payer OTHER, SELFPAY ==
[2024-05-28 11:47] LABS: Absolute Lymphocyte Count 2.31 X10^3/uL (0.83-4.51); Absolute Neutrophil Count 2.9 X10^3/uL (2.0-7.7); Basophil# 0.06 X10^3/uL; Eosinophil# 0.05 X10^3/uL; Eosinophils% 0.9 % (0-5); Hematocrit 38.7 % (37-47); Hemoglobin 13.3 g/dL (12.0-15.0); Lymphocyte # 2.31 X10^3/ul (0.83-4.51); Lymphocyte % 40.1 % (19-41); Mean Corp Hgb Conc 34.4 g/dL (32-36); Mean Corpuscular Hgb 31.5 pg (27.0-32.0); Mean Corpuscular Volume 91.7 fL (81-99); Mean Platelet Vol. 9.6 fl (6.2-12.0); Monocyte# 0.45 X10^3/uL; Monocyte% 7.8 % (0-10); NRBC Flagged by Analyzer 0 % (0-5); Neutrophil # 2.88 X10^3/uL (2.7-7.7); Platelet Count 308 K/mm3 (150-450); RBC Distribution Width CV 12.1 % (11.6-14.6); RBC Distribution Width SD 40.3 fl (35.1-43.9); Red Blood Count 4.22 M/mm3 (4.2-5.4); White Blood Count 5.8 K/mm3 (4.4-11.0)
== END | disposition home or self-care (01) ==
LOC: LAB 10:48
PROVIDERS: PCP Internal Medicine; Referring Provider Obstetrics & Gynecology; Visit Provider Obstetrics & Gynecology
DX: N93.9 Abnormal uterine and vaginal bleeding, unspecified (principal); L65.9 Nonscarring hair loss, unspecified
CPT/HCPCS: 36415; 84443; 85025

== ENCOUNTER → 2024-06-04 | Outpatient (CLI) | payer OTHER, SELFPAY ==
--- NOTE | 2024-06-04 12:51 | US_ITS ---
STUDY: ULTRASOUND OF THE FEMALE PELVIS - COMPLETE REASON FOR EXAM: Female, 38 years old. AUB LMP: 05/29/2024 TECHNIQUE: Transabdominal and Transvaginal TECHNICAL QUALITY: Adequate. COMPARISON: None. FINDINGS: The uterus is anteverted and is in a midline position. The uterus measures 10.6 x 7.5 x 5.3 cm. Normal uterine cervix. The endometrium measures 8 mm in thickness, and is hyperechoic. There is no demonstrated endometrial mass. There is no demonstrated myometrial mass. I.U.D. - The patient does not have an I.U.D. The right ovary is visualized. The right ovary measures 3.6 x 2.4 x 2.3 cm. There is no right ovarian cyst or ovarian mass. There is no visualized right adnexal mass or complex lesion. There is normal arterial and normal venous vascularity. The left ovary is visualized. The left ovary measures 3.4 x 1.7 x 2.0 cm. There is no left ovarian cyst or ovarian mass. There is no visualized left adnexal mass or complex lesion. There is normal arterial and normal venous vascularity. There is no fluid in the cul-de-sac. US/Pelvic w/ Transvaginal IMPRESSION: Normal female pelvis. Electronically Signed: Haile Chandler MD at 20:58 EDT ,
== END | disposition home or self-care (01) ==
LOC: US 12:50
PROVIDERS: PCP Internal Medicine; Referring Provider Obstetrics & Gynecology; Visit Provider Obstetrics & Gynecology
DX: N93.9 Abnormal uterine and vaginal bleeding, unspecified (principal)
CPT/HCPCS: 76830; 76856

== ENCOUNTER → 2024-06-29 | Outpatient (CLI) | payer OTHER, SELFPAY ==
[2024-06-29 13:47] LABS: AST(SGOT) 12 U/L (15-37); Alanine Aminotransfer ALT/SGPT 14 U/L (13-56); Albumin, Serum 3.8 g/dL (3.2-5.0); Alkaline Phosphatase 68 U/L (45-117); Anion Gap 7 (5-15); BUN 15 mg/dL (7-18); BUN/Creat Ratio 25.1 RATIO (10-20); Calcium,Total 8.9 mg/dL (8.5-10.1); Chloride 107 mmol/L (98-107); Cholesterol 170 mg/dL (200); EST Glomerular Filtration Rate 120 mL/min (>60); Est Glom Filt Rate - Afr Amer 146 mL/min (>60); Globulin 3.9 g/dL (2.2-4.2); Glucose 96 mg/dL (74-106); High Density Lipoprotein 64 mg/dL; Potassium 3.9 mmol/L (3.5-5.1); Protein, Total 7.7 g/dL (6.4-8.2); Sodium Level 138 mmol/L (136-145); Triglycerides 42 mg/dL; Very Low Density Lipoprotein 8 mg/dL (5-40)
== END | disposition home or self-care (01) ==
LOC: BIMLAB 10:39
PROVIDERS: PCP Internal Medicine; Referring Provider Internal Medicine; Visit Provider Internal Medicine
DX: Z00.00 Encounter for general adult medical examination without abnormal findings (principal)
CPT/HCPCS: 36415; 80053; 80061

== ENCOUNTER → 2025-07-01 | Outpatient (CLI) | payer OTHER, SELFPAY ==
--- OUTSIDE RECORDS SUMMARY | 2025-07-01 16:56 | XMS RPT_ITS | CCD ---
Author Organization [facility] Care Team Providers Care [employer] Reverser Name Role Phone BenignosoloOsman wright Primary Care Provider Archinal, Shalini Unavailable Unavailable Archinal, Shalini E Unavailable Unavailabl e Dixie, Crystal L Unavailable Unavailable Dixie, Crystal L Unavailable Unavailable Archinal, Shalini E Unavailable Unavailable Unavailable [facility] Doctor, Out of Primary Care Provider [facility] Doctor, Out of Referring Provider UnavailDr. Derik Stone Attending Provider [phone] [facility] Doctor, Out of Primary Care Provider [facility] Doctor, Out of Referring Provider UnavailDr. Derik Stone Attending Provider [phone] Dr. Derik Ingram Primary Care Provider 1(33 0) Dr. Derik Ingram Referring Provider [phone] Dr. Reina Curiel Attending Provider 1(330 ) FIFI Brown Attending Provider FIFI Irwin NP Attending Provider 1(330 ) Dr. Nita Gonzalez Attending Provider [phone] BRENDA IRWIN Referring Unavailable CHRISTIAN GREWAL Attending Unavailable DERIK INGRAM Primary Care Unavailable Dr. Derik Ingram Primary Care Provider 1(33 0) Dr. Derik Ingram Referring Provider [phone] FIFI Brown Attending Provider Ez [employer]OP[employer]OR[employer], FIFI Del Real Attending Provider 1(330 ) Dr. Nita Gonzalez Attending Provider 1(3 [phone]) Dr. Reina Curiel Attending Provider 1(330 ) Dr. Derik Ingram Primary Care Provider 1(33 0) Dr. Derik Ingram Referring Provider [phone] Dr. Derik Ingram Primary Care Provider 1(33 0) Juan Jose, Dr. Wang Referring Provider [phone])[phone] Ez ISAAC, PONCHO-Luanne Del Real Attending Provider 1(330 ) CECILE Blanca Attending Provider [phone] Dr. Nita Gonzalez Attending Provider 1(3 30) Dr. Derik Ingram Primary Care Provider 1(33 0) Dr. Derik Ingram Referring Provider [phone])2 Dr. Reina Curiel Attending Provider 1(330 ) CECILE Cochran Admit Provider [phone] CECILE Cochran Attending Provider 1(330) CECILE Cochran Referring Provider 1(330) CECILE Cochran Other Provider 1(330)- Dr. Derik Ingram Primary Care Provider 1(33 0) Dr. Derik Ingram Referring Provider [phone] Dr. Reina Curiel Attending Provider 1(330 ) Dr. Derik Ingram Attending Provider [phone])2 Dr. Derik Ingram Primary Care Provider 1(33 0) Dr. Derik Ingram Attending Provider [phone])2 Dr. Derik Ingram Referring Provider [phone])2 Oleghe, Efewongbe Primary Care Unavailable Oleghe, Efewongbe Attending Unavailable Oleghe, Efewongbe Referring Unavailable Oleghe, Efewongbe Referring Unavailable Oleghe, Efewongbe Primary Care Unavailable Reina Curiel Attending Unavailable Oleghe, Efewongbe Attending Unavailable Oleghe, Efewongbe Referring Unavailable Oleghe, Efewongbe Primary Care Unavailable Allergies Allergy Classification Reported Allergen(s) Allergy Type Date of Onset Reaction(s) Facility (3 sources) Contrast Media Ready-Box MISC; Translations: [Contrast Media Ready-Box MISC] Allergy to drug (finding) [facility] Work Phone: Medications Current Medications Medication Drug Class(es) Dates Sig (Normalized) Sig (Original) cholecalciferol 0.125 mg oral capsule (20 sources) Vitamin D Start: 05-23-2023 take 125 ug by mouth once daily Cholecalciferol (Vitamin D3) Active 125 MCG PO DAILY May 22, 2023 11:00pm Start: 10-20-2018 End: 10-17-2020 take 5000 [IU] by mouth once daily Cholecalciferol (Vitamin D3) Discontinued 5000 UNIT PO DAILY October 20, 2018 12:00am October 17, 2020 2:38pm take 1 tablet by alfredo th once daily Cholecalciferol (VITAMIN D3) 5000 units TABS Take 1 tablet by mouth daily 0 Active [place] (Nk) (3 sources) Start: 06-19-2022 [place] (Nk) A ctive June 19, 2022 12:00am Pnv No.493-Mm-Fc0-Dha-Epa- Fish (11 sources) Start: 09-04-2022 take 1 tablet by mouth once daily Pnv No.082-Ha-Lq5-Dha-Epa-F rekha Active 1 TABLET PO DAILY September 04, 2022 12:00am Start: 09-04-2022 take 1 tablet by alfredo th once daily Pnv No.357-Qu-Hr5-Gdx-Riy-Tkjt Active 1 TABLET PO DAILY September 04, 2022 1:00am Start: 09-04-2022 Pnv No.153-Fa- Rr7-Blr-Gma-Fish Active TABLET PO September 04, 2022 1:00am Start: 09-04-2022 Pnv No.153-Fa- Vs0-Nyv-Wjz-Fish Active TABLET PO September 04, 2022 12:00am Mtsbcdqx-Hir-Rd-FA ( VITAMINS PO) (3 sources) take 2 tablets by mouth once daily Jyunqnhv-Jfd-Yz-FA ( VITAMINS PO) Take 2 tablets by mouth daily 0 Active sodium chloride flush 0.9 % injection 3 mL (1 source) Start: 08-07-2019 sodium chloride flush 0.9 % injection 3 mL Completed/Discontinued Medications Medication Drug Class(es) Dates Sig (Normalized) Sig (Original) acetaminophen 500 mg oral tablet (14 sources) Start: 09-05-2018 End: 10-20-2018 Acetaminophen Discontinued September 05, 2018 12:00am October 20, 2018 10:13am aspirin 81 mg delayed release oral tablet (9 sources) Platelet Aggregation Inhibitor, Nonsteroidal Anti-inflammatory Drug Start: 11-13-2022 End: 04-10-2023 take 1 tablet by mouth at bedtime Aspirin (Adult Aspirin Regimen) 81 mg tablet,delayed release (DR/EC) Discontinued 81 MG PO BEDTIME November 13, 2022 12:00am April 10, 2023 7:14am Blood-Glucose Meter (10 sources) Start: 10-03-2022 End: 05-23-2023 Blood-Glucose Meter Discontinued 0 .ROUTE .MEDSUPPLY October 03, 2022 12:00am May 23, 2023 7:31am As directed- Test fasting and 2 hours after meals Start: 10-03-2022 End: 05-23-2023 Blood-Glucose Meter Disconti nued 0 .ROUTE .MEDSUPPLY October 03, 2022 1:00am May 23, 2023 8:31am As directed- Test fasting and 2 hours after meals Start: 10-03-2022 Blood-Glucose Meter Active 0 .ROUTE .MEDSUPPLY October 03, 2022 1:00am As directed- Test fasting and 2 hours after meals Start: 10-03-2022 Blood-Glucose Meter Active 0 .ROUTE .MEDSUPPLY October 03, 2022 12:00am As directed- Test fasting and 2 hours after meals Desogestrel-Ethinyl Estradiol (20 sources) Progestin, Estrogen Start: 10-17-2020 End: 01-20-2021 Desogestrel-Ethinyl Estradiol (Apri) 0.15-0.03 mg tablet Discontinued 1 TABLET PO daily October 17, 2020 12:00am January 20, 2021 2:34pm Start: 10-17-2020 End: 01-20-2021 Desogestrel-Ethinyl Estradio l (Apri) 0.15-0.03 mg tablet Discontinued 1 TABLET PO daily October 17, 2020 12:00am January 20, 2021 2:34pm daily orally at the same time Start: 10-17-2020 End: 01-20-2021 Desogestrel-Ethinyl Estradio l (Apri) 0.15-0.03 mg tablet Discontinued 1 TABLET PO daily October 17, 2020 1:00am January 20, 2021 3:34pm Start: 10-17-2020 End: 01-20-2021 Desogestrel-Ethinyl Estradio l (Apri) 0.15-0.03 mg tablet Discontinued 1 TABLET PO daily October 17, 2020 1:00am January 20, 2021 3:34pm daily orally at the same time doxylamine succinate 25 mg oral tablet (9 sources) Start: 10-11-2022 End: 12-10-2022 Doxylamine Succinate (Unisom (Doxylamine)) 25 mg tablet Discontinued 12.5 MG PO AT BEDTIME October 11, 2022 12:00am December 10, 2022 2:14pm Norethindrone-E.Estr adiol-Iron (14 sources) Estrogen Start: 06-30-2020 End: 01-20-2021 take 1 tablet by mouth once daily Norethindrone-E.Estrad iol-Iron (Lo Loestrin Fe) 1 mg-10 mcg (24)/10 mcg (2) tablet Discontinued 1 TABLET PO DAILY 140 June 29, 2020 11:00pm January 20, 2021 2:34pm Start: 06-30-2020 End: 01-20-2021 take 1 tablet by mouth once daily Norethindrone-E.Estradiol-Iron (Lo Loest rin Fe) 1 mg-10 mcg (24)/10 mcg (2) tablet Discontinued 1 TABLET PO DAILY 140 June 30, 2020 12:00am January 20, 2021 3:34pm Levonorgestrel-Ethinyl Estrad (14 sources) Progestin, Estrogen, Progestin-containing Intrauterine Device Start: 01-20-2021 End: 07-17-2021 take 1 tablet by mouth once daily Levonorgestrel-Ethinyl Estrad (Aviane) 0.1-20 mg-mcg tablet Discontinued 1 TABLET PO DAILY January 19, 2021 11:00pm July 17, 2021 9:28am Start: 01-20-2021 End: 07-17-2021 take 1 tablet by mouth once daily Levonorgestrel-Ethinyl Estrad (Aviane) 0.1-20 mg-mcg tablet Discontinued 1 TABLET PO DAILY January 20, 2021 12:00am July 17, 2021 10:28am gadobenate dimeglumine (MULTIHANCE) injection 17 mL (1 source) Start: 08-11-2019 End: 08-11-2019 gadobenate dimeglumine (MULTIHANCE) injection 17 mL ibuprofen 600 mg oral tablet (14 sources) Nonsteroidal Anti-inflammatory Drug Start: 09-05-2018 End: 10-20-2018 take 600 mg by mouth four times daily Ibuprofen Discontinued 600 MG PO 4 TIMES DAILY September 05, 2018 12:00am October 20, 2018 10:13am 3 ml insulin isophane, human 100 unt/ml pen injector (20 sources) Start: 04-10-2023 End: 05-23-2023 Insulin Nph Isoph U-100 Human (Novolin N Flexpen) 100 unit/mL (3 mL) insulin pen Discontinued 7 UNIT SC EVERY EVENING April 10, 2023 7:15am May 23, 2023 7:31am change to 7 units at bed time Start: 03-15-2023 End: 04-10-2023 Insulin Nph Isoph U-100 Rosie n (Novolin N Flexpen) 100 unit/mL (3 mL) insulin pen Discontinued 33 UNIT SC EVERY EVENING March 15, 2023 9:00am April 10, 2023 7:15am Start: 01-07-2023 End: 03-15-2023 Insulin Nph Isoph U-100 Rosie n (Novolin N Flexpen) 100 unit/mL (3 mL) insulin pen Discontinued 26 UNIT SC EVERY EVENING January 07, 2023 1:26pm March 15, 2023 9:00am Start: 12-10-2022 End: 01-07-2023 Insulin Nph Isoph U-100 Rosie n (Novolin N Flexpen) 100 unit/mL (3 mL) insulin pen Discontinued 21 UNIT SC EVERY EVENING December 10, 2022 2:14pm January 07, 2023 1:26pm Start: 11-13-2022 End: 12-10-2022 Insulin Nph Isoph U-100 Rosie n (Novolin N Flexpen) 100 unit/mL (3 mL) insulin pen Discontinued 22 UNIT SC EVERY EVENING November 13, 2022 12:00am December 10, 2022 2:14pm naproxen 500 mg oral tablet (3 sources) Nonsteroidal Anti-inflammatory Drug Start: 04-10-2023 End: 05-23-2023 take 500 mg by mouth twice daily Naproxen Discontinued 500 MG PO TWICE A DAY April 09, 2023 11:00pm May 23, 2023 7:31am NIFEdipine 30 mg osmotic 24 hr extended release oral tablet (14 sources) Dihydropyridine Calcium Channel Ede Start: 09-09-2018 End: 10-20-2018 take 1 tablet by mouth once daily Nifedipine (Procardia Xl) 30 mg tablet extended release 24hr Discontinued 30 MG PO DAILY September 09, 2018 12:00am October 20, 2018 10:13am omeprazole 20 mg delayed release oral capsule (4 sources) Proton Pump Inhibitor Start: 03-20-2021 take 1 capsule by mouth once daily Omeprazole 20 MG Oral Capsule Delayed Release Take 1 capsule by mouth daily Quantity: 30 Refills: 2 Ordered: 20-Mar-2021 Shalini Champion MD Start : 20-Mar-2021 Active Start: 04-12-2020 take 1 capsule by mo [facility] once daily before breakfast omeprazole (PRILOSEC) 40 MG delayed release capsule Take 1 capsule by mouth every morning (before breakfast) 30 capsule 0 04/12/2020 Active Prenat.Vits,Maurisio,Axp-Fsic-Wct ic (14 sources) Start: 02-06-2018 End: 10-17-2020 take 1 tablet by mouth once daily Prenat.Vits,Maurisio,Nku-Rfhx-Fpdxs Discontinued 1 TABLET PO daily February 05, 2018 11:00pm October 17, 2020 2:38pm Start: 02-06-2018 End: 10-17-2020 take 1 tablet by mouth once daily Prenat.Vits,Maurisio,Rmb-Fpzv-Tzbib Discontin ued 1 TABLET PO daily February 06, 2018 12:00am October 17, 2020 3:38pm 50 ml sodium chloride 9 mg/ml injection (1 source) Start: 08-07-2019 End: 08-07-2019 0.9 % sodium chloride bolus Vit C-Zinc Citrate-Elderberry (Sambucus Elderberry) 30-1.1-25 mg tablet,chewable (11 sources) Start: 09-04-2022 End: 05-23-2023 take 1 tablet by mouth once daily Vit C-Zinc Citrate-Elderberry (Sambucus Elderberry) 30-1.1-25 mg tablet,chewable Discontinued 1 TABLET PO DAILY September 04, 2022 12:00am May 23, 2023 7:31am Start: 09-04-2022 End: 05-23-2023 take 1 tablet by mouth once daily Vit C-Zinc Citrate-Elderberry (Sambucus Elderberry) 30-1.1-25 mg tablet,chewable Discontinued 1 TABLET PO DAILY September 04, 2022 1:00am May 23, 2023 8:31am Start: 09-04-2022 take 1 tablet by alfredo th once daily Vit C-Zinc Citrate-Elderberry (Sambucus Elderberry) 30-1.1-25 mg tablet,chewable Active 1 TABLET PO DAILY September 04, 2022 1:00am Start: 09-04-2022 Vit C-Zinc Cit rate-Elderberry (Sambucus Elderberry) 30-1.1-25 mg tablet,chewable Active TABLET PO September 04, 2022 1:00am Start: 09-04-2022 Vit C-Zinc Cit rate-Elderberry (Sambucus Elderberry) 30-1.1-25 mg tablet,chewable Active TABLET PO September 04, 2022 12:00am Problems Active Problems Problem Classification Problem Date Documented Da te Episodic/Chronic Abdominal hernia (3 sources) Hiatal hernia; Translations: [Diaphragmatic hernia without mention of obstruction or gangrene] Episodic Cardiac dysrhythmias (4 sources) Palpitations; Translations: [Palpitations] Episodic Conditions associated with dizziness or vertigo (3 sources) Labyrinthitis; Translations: [Labyrinthitis, unspecified] Episodic Diabetes or abnormal glucose tolerance complicating ; childbirth; or the puerperium (20 sources) Diabetes mellitus during , childbirth and the puerperium; Translations: [Unspecified diabetes mellitus in , unspecified trimester] 11-13-2022 Chronic Diabetes or abnormal glucose tolerance complicating ; childbirth; or the puerperium (7 sources) Gestational diabetes mellitus in , unspecified control; Translations: [Abnormal glucose tolerance of mother, unspecified as to episode of care or not applicable] 10-11-2022 Episodic Esophageal disorders (20 sources) Gastroesophageal reflux disease; Translations: [Esophageal reflux] Chronic Headache; including migraine (3 sources) Chronic headache disorder; Translations: [Headache] Episodic Hypertension complicating ; childbirth and the puerperium (14 sources) Hypertension complicating ; Translations: [Unspecified maternal hypertension, unspecified trimester] 09-05-2018 Chronic Immunizations and screening for infectious disease (2 sources) Needs influenza immunization; Translations: [Need for prophylactic vaccination and inoculation against influenza] Episodic Malaise and fatigue (5 sources) Fatigue; Translations: [Other malaise and fatigue] 11-22-2023 Episodic Comment on above: Added by Roma Wood; 2013-10-09; Nausea and vomiting (3 sources) Nausea; Translations: [Nausea alone] Episodic Nutritional deficiencies (20 sources) Vitamin D deficiency; Translations: [Unspecified vitamin D deficiency] Chronic Other complications of (11 sources) Maternal obesity complicating , childbirth and the puerperium, antepartum; Translations: [Obesity complicating , unspecified trimester] 09-17-2022 Chronic Other complications of (20 sources) Obesity complicating , unspecified trimester; Translations: [Obesity complicating , childbirth, or the puerperium, unspecified as to episode of care or not applicable] Chronic Other complications of (14 sources) ultrasound scan abnormal; Translations: [Abnormal ultrasonic finding on screening of mother] 09-05-2018 Episodic Other complications of (14 sources) Proteinuria; Translations: [Gestational proteinuria, unspecified trimester] 09-05-2018 Episodic Other complications of (11 sources) Multigravida of advanced maternal age; Translations: [Supervision of elderly multigravida, unspecified trimester] 09-17-2022 Episodic Other complications of (11 sources) High risk ; Translations: [Supervision of high risk , unspecified, unspecified trimester] 10-16-2022 Episodic Other complications of (20 sources) Supervision of high risk , unspecified, unspecified trimester; Translations: [Supervision of unspecified high-risk ] Episodic Other complications of (9 sources) Disease caused by 2019-nCoV; Translations: [Other viral diseases complicating , unspecified trimester] 10-24-2022 Episodic Other complications of (20 sources) Supervision of elderly multigravida, unspecified trimester; Translations: [Elderly multigravida, unspecified as to episode of care or not applicable] 10-16-2022 Episodic Other complications of (20 sources) Other viral diseases complicating , unspecified trimester; Translations: [Other viral diseases in the mother, antepartum condition or complication] 11-13-2022 Episodic Other connective tissue disease (2 sources) Muscle weakness of upper limb; Translations: [Other musculoskeletal symptoms referable to limbs] Episodic Other connective tissue disease (2 sources) Pain in left arm; Translations: [Pain in limb] Episodic Other ear and sense organ disorders (3 sources) Otalgia; Translations: [Otalgia, unspecified] Episodic Other female genital disorders (14 sources) Premenstrual tension syndrome; Translations: [Premenstrual tension syndrome] 09-17-2022 Chronic Other gastrointestinal disorders (3 sources) Diarrhea; Translations: [Diarrhea] Episodic Other lower respiratory disease (3 sources) Persistent cough; Translations: [Cough] Episodic Other nervous system disorders (4 sources) Paresthesia; Translations: [Disturbance of skin sensation] Episodic Other nutritional; endocrine; and metabolic disorders (14 sources) Body mass index 30+ - obesity; Translations: [Obesity, unspecified] Resolved: 09-17-2022 Chronic Other nutritional; endocrine; and metabolic disorders (2 sources) Insulin resistance; Translations: [Dysmetabolic syndrome X] Chronic Other nutritional; endocrine; and metabolic disorders (3 sources) Abnormal weight gain; Translations: [Abnormal weight gain] Episodic Other nutritional; endocrine; and metabolic disorders (3 sources) Weight loss; Translations: [Loss of weight] Episodic Other and delivery including normal (20 sources) Normal ; Translations: [Encounter for supervision of normal , unspecified, unspecified trimester] Episodic Other screening for suspected conditions (not mental disorders or infectious disease) (2 sources) Patient encounter status; Translations: [Encounter for screening for other suspected endocrine disorder] 11-22-2023 Episodic Other skin disorders (14 sources) Disorder of skin; Translations: [Other skin changes] 09-17-2022 Episodic Other skin disorders (5 sources) Other skin changes; Translations: [Other symptoms involving skin and integumentary tissues] Episodic Other skin disorders (1 source) Loss of hair; Translations: [Nonscarring hair loss, unspecified] 11-22-2023 Episodic Other skin disorders (1 source) Nonscarring hair loss, unspecified; Translations: [Alopecia, unspecified] 11-22-2023 Episodic Unclassified (1 source) Sprain of right ankle; Translations: [Sprain of right ankle, unspecified ligament, initial encounter] Past or Other Problems Problem Classification Problem Date Documented Date Episodic/Chronic Other circulatory disease (4 sources) Elevated blood pressure; Translations: [Elevated blood pressure reading] Onset: 09-25-2018 Resolved: 07-09-2019 07-09-2019 Episodic Other nutritional; endocrine; and metabolic disorders (3 sources) Unintentional weight loss; Translations: [Loss of weight] Resolved: 10-01-2016 Episodic Other nutritional; endocrine; and metabolic disorders (1 source) Insulin resistance; Translations: [Insulin resistance] Residual codes; unclassified (4 sources) FH: Hypertension; Translations: [Family history of hypertension] Onset: 09-25-2018 07-09-2019 Episodic Unclassified (3 sources) Normal labor; Translations: [Active labor at term] 04-10-2023 Results Test Name Value Interpretation Reference Range Facility Comprehensive Metabolic Prof glenn 06-29-2024 Albumin [Mass/Vol] 3.8 g/dL Normal 3.2-5.0 [facility] Comment on above: Performed By: #### L 500.4050, L500.4100 #### [facility] [address] [place], [address] Albumin/Globulin [Mass ratio] 1.0 {ratio} Normal 0.9-2.4 [facility] Comment on above: Performed By: #### L 500.4050, L500.4100 #### [facility] [address] [place], [address] ALK P 68 U/L Normal 45-117 [facility] Comment on above: Performed By: #### L 500.4050, L500.4100 #### [facility] [address] [place], [address] ALT [Catalytic activity/Vol] 14 U/L Normal 13-56 [facility] Comment on above: Performed By: #### L 500.4050, L500.4100 #### [facility] [address] [place], [address] AST [Catalytic activity/Vol] 12 U/L Low 15-37 [facility] Comment on above: Performed By: #### L 500.4050, L500.4100 #### [facility] [address] [place], [address] Bilirubin [Mass/Vol] 0.30 mg/dL Normal 0.20-1.00 [facility] Comment on above: Result Comment: For patients on eltrombopag therapy, use of Dimension [place] TBIL is not recommended. Performed By: #### L 500.4050, L500.4100 #### [facility] [address] [place], [address] BUN/CRE 25.1 RATIO High 10-20 [facility] Comment on above: Performed By: #### L 500.4050, L500.4100 #### [facility] [address] [place], [address] CA,Total 8.9 mg/dL Normal 8.5-10.1 [facility] Comment on above: Performed By: #### L 500.4050, L500.4100 #### [facility] [address] [place], [address] Chloride [Moles/Vol] 107 mmol/L Normal 98-107 [facility] Comment on above: Performed By: #### L 500.4050, L500.4100 #### [facility] [address] [place], [address] CO2 [Moles/Vol] 24.0 mmol/L Normal 21.0-32.0 [facility] Comment on above: Performed By: #### L 500.4050, L500.4100 #### [facility] [address] [place], [address] Creatinine [Mass/Vol] 0.60 mg/dL Normal 0.55-1.02 [facility] Comment on above: Result Comment: The validity of the calculated GFR GFRAA in patients over 70 years has not been determined. Clinical correlation is essential. Performed By: #### L 500.4050, L500.4100 #### [facility] [address] [place], [address] EST GFR - AA 146 mL/min Normal >60 [facility] Comment on above: Result Comment: Afri can Bulgarian GFR Calc Performed By: #### L 500.4050, L500.4100 #### [facility] [address] [place], [address] GAP 7 Normal 5-15 [facility] Comment on above: Performed By: #### L 500.4050, L500.4100 #### [facility] [address] [place], [address] GFR/1.73 sq M.predicted among non-blacks MDRD (S/P/Bld) [Vol rate/Area] 120 mL/min/{1.73_m2} Normal >60 [facility] Comment on above: Result Comment: Non- GFR Calc Performed By: #### L 500.4050, L500.4100 #### [facility] [address] [place], [address] Globulin (S) [Mass/Vol] 3.9 g/dL Normal 2.2-4.2 [facility] Comment on above: Performed By: #### L 500.4050, L500.4100 #### [facility] [address] [place], [address] Glucose [Mass/Vol] 96 mg/dL Normal 74-106 [facility] Comment on above: Performed By: #### L 500.4050, L500.4100 #### [facility] [address] [place], [address] Potassium [Moles/Vol] 3.9 mmol/L Normal 3.5-5.1 [facility] Comment on above: Performed By: #### L 500.4050, L500.4100 #### [facility] [address] [place], [address] Sodium [Moles/Vol] 138 mmol/L Normal 136-145 [facility] Comment on above: Performed By: #### L 500.4050, L500.4100 #### [facility] [address] [place], [address] T PROT 7.7 g/dL Normal 6.4-8.2 [facility] Comment on above: Performed By: #### L 500.4050, L500.4100 #### [facility] [address] [place], [address] Urea nitrogen [Mass/Vol] 15 mg/dL Normal 7-18 [facility] Comment on above: Performed By: #### L 500.4050, L500.4100 #### [facility] [address] [place], [address] Internal Medicine Office Vis lorin 06-29-2024 Internal Medicine Office Visit [facility] [address] [place] [address] OFFICE VISIT Date of Service: 06/29/24 MR#: [id number] Acct: [id number] Name: EDU [place] Rep #: [id number] : 1985 Provider: Dr. Dreik chappell MD Age/Sex: 38/F Location: [facility] [email or web address] Status: Signed Intake Vital Signs 05/23/23 08:34 05/28/24 10:15 06/29/24 10:06 Height 5 ft 5 in 5 ft 5 in 5 ft 5 in Weight: 184 lb BMI 30.6 BP 124/78 H Blood Pressure Location Lt brachial Position Sitting Respiration 16 Pulse 84 Pulse Source Monitor Temp 97.5 F L Temp Source Temporal Pulse Oximetry (%) 99 Oxygen Delivery Method room air Intake Visit Reasons: 1 Y FU Chief Complaint: Yearly visit Rag Willow Operator Required: No Is patient in pain?: No (Shoulder) Allergies No Known Allergies Allergy (Verified 06/29/24 09:55) Medications ???Medication ???Instructions ???Recorded ???Confirmed ???Type NK 06/29/24 06/29/24 History PFSH Medical History Hair loss Screening for thyroid disorder Malaise and fatigue Preventative health care Vaginal delivery Active labor at term Gestational diabetes Modified White class B pregestational diabetes mellitus COVID-19 affecting , antepartum AMA (advanced maternal age) multigravida 35+ Obesity affecting Supervision of high risk , antepartum Other skin changes Vitamin D deficiency Abnormal Pap smear of cervix Hiatal hernia GERD (gastroesophageal reflux disease) Surgical History Anita teeth extracted History of placement of ear tubes History of tonsillectomy and adenoidectomy Hx of cholecystectomy Family History Mother Hypertension Aunt Breast cancer, Onset Age: 45 Maternal Social History (Updated 06/29/24 @ 10:06 by Ruth Grissom MA) adopted: No household members: spouse and children housing: house number of children: 2 current occupational status: employed current occupation: [employer] current occupational exposures/hazards: No pets and animals: Yes (Not managing litterbox) pets and animals: cat(s) history of recent travel: No sexually active: Yes Smoking Status: Never smoker alcohol intake: never substance use type: does not use well-balanced diet: daily or most days caffeine: No eating out: rarely or never during the past year weight has: increased > 10 lbs what type of physical activity do you participate in: none jeffy/presybeterian: None seatbelt use: always do you feel safe at home: Yes additional social history: [employer] 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 No acute concerns at this time. Was seen a few months ago due to shoulder pain and an abnormality palpated in her right shoulder area. Had an ultrasound done which showed a benign lymph node otherwise, no acute concerns. Pain in shoulder is not present anymore however localized swelling remains. No change in size and no other similarly palpable abnormalities noted. She has been otherwise stable. 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 No significant change in family history since her last visit. No tobacco or alcohol abuse. ROS Const Constitutional: No body ache, chills, excessive sweating, fatigue, fever(s), frequent falls, headache(s), snoring, weakness, sleep problems or change in appetite Eyes Eyes: No blurry vision, change in vision, bulging eyes, floaters, visual disturbances, eye pain or Light sensitivity ENT ENT: No abnormal hearing, ear or mastoid pain, tinnitus, balance problems, nosebleed/epistaxis, nasal congestion, headache(s), neck pain or sore throat Resp Respiratory: No cough, chest congestion, pain on inspiration, shortness of breath, snoring or wheezing Cardio Cardiology: No chest pain at rest, chest pain with exertion, excessive sweating, shortness of breath, dyspnea on exertion, lightheadedness, orthopnea or palpitations Gastro GI: No abdominal pain, change in bowel habits, constipation, cramping, diarrhea, nausea/dyspepsia or vomiting Genitourinary-Female: No burning urination, painful urination, urinary incontinence, urinary frequency, abnormal vaginal bleeding or pelvic pain Musc Musculoskeletal: No abnormal gait, joint pain, back pain, limited range of motion, neck pain or numbness Skin Skin: No dry skin, redness, excessive hair growth, yellowing of the eye, lesions, itchy eyes, rash or wounds Neuro Neurology: No abnormal gait, abnormal hearing, behavioral changes, unsteady gait/bal (more content not included)... Normal [facility] Lipid Profileon 06-29-2024 Cholesterol [Mass/Vol] 170 mg/dL Normal 200 [facility] Comment on above: Result Comment: <200 mg/dL Desirable 200-240 mg/dL Borderline >240 mg/dL High Risk Performed By: #### L 500.4050, L500.4100 #### [facility] [address] [place], [address] Cholesterol in HDL [Mass/Vol] 64 mg/dL Normal [facility] Comment on above: Result Comment: The drugs N-Acetylcysteine and Metamizole may falsely depress this assay. Reference Range HDL <40 mg/dL Low HDL Cholesterol HDL >or= 60 mg/dL High HDL Cholesterol Performed By: #### L 500.4050, L500.4100 #### [facility] [address] [place], [address] Cholesterol in LDL [Mass/Vol] 98 mg/dL Normal 0-130 [facility] Comment on above: Performed By: #### L 500.4050, L500.4100 #### [facility] [address] [place], [address] Cholesterol in VLDL [Mass/Vol] 8 mg/dL Normal 5-40 [facility] Comment on above: Performed By: #### L 500.4050, [id number] #### [facility] [address] [place], [address] Triglyceride [Mass/Vol] 42 mg/dL Normal [facility] Comment on above: Result Comment: The drugs N-Acetylcysteine and Metamizole may falsely depress this assay. Serum Triglycerides Reference Interval Normal <150 mg/dL Borderline high 150 - 199 mg/dL High 200 - 499 mg/dL Very High > or = 500 mg/dL Performed By: #### L 500.4050, L500.4100 #### [facility] [address] [place], [address] Absolute lymphocyte countOrd ered By: Derik Ingram on 11-22-2023 Lymphocytes Auto (Unsp spec) [#/Vol] 2.20 10*3/uL 0.83-4.51 [facility] Automated lymphocyte count a s percentage of total leukocytesOrdered By: Derik Ingram on 11-22-2023 Lymphocytes/100 WBC Auto (Unsp spec) 36.9 % 19-41 [facility] Basophil percentageOrdered B y: Carolkikoianconrad Ingram on 11-22-2023 Basophils/100 WBC (Bld) 1.0 % 0-1 [facility] Bilirubin [Mass/Vol] 0.40 mg/dL 0.20-1.00 [facility] Comment on above: For patients on eltr ombopag therapy, use of Dimension [place] TBIL is not recommended. Chloride [Moles/Vol] 111 mmol/L 98-107 [facility] Eosinophils/100 WBC (Bld) 1.0 % 0-5 [facility] Glucose [Mass/Vol] 88 mg/dL 74-106 [facility] Hemoglobin (Bld) [Mass/Vol] 13.4 g/dL 12.0-15.0 [facility] Monocytes/100 WBC (Bld) 7.0 % 0-10 [facility] Neutrophils (Bld) [#/Vol] 3.2 10*3/uL 2.0-7.7 [facility] Neutrophils/100 WBC (Bld) 53.6 % 47-70 [facility] Potassium [Moles/Vol] 3.8 mmol/L 3.5-5.1 [facility] Protein [Mass/Vol] 6.9 g/dL 6.4-8.2 [facility] Sodium [Moles/Vol] 141 mmol/L 136-145 [facility] WBC (Bld) [#/Vol] 6.0 10*3/uL 4.4-11.0 [facility] Determination of erythrocyte mean corpuscular volume (MCV)Ordered By: Derik Ingram on 11-22-2023 MCV (RBC) [Entitic vol] 88.1 fL 81-99 [facility] Erythrocyte distribution wid th ratioOrdered By: [facility] Hospitalconrad Elizaldeperla on 11-22-2023 Erythrocyte distribution width (RBC) [Ratio] 11.7 % 11.6-14.6 [facility] Erythrocyte distribution wid th standard deviationOrdered By: [facility] Hospitalconrad Ingram on 11-22-2023 Erythrocyte distribution width (RBC) [Entitic vol] 37.3 fL 35.1-43.9 [facility] Hematocrit Auto (Bld) [Volum e fraction]Ordered By: kikofalconerconrad Ingram on 11-22-2023 Hematocrit (Bld) [Volume fraction] 37.8 % 37-47 [facility] Immature granulocytes/100 WB C Auto (Bld)Ordered By: [facility] Hospitalconrad Ingram on 11-22-2023 Immature granulocytes/100 WBC (Bld) 0.500 % 0.0-0.9 [facility] Comment on above: IG% - Immature Granu locytes (promyelocytes, myelocytes and metamyelocytes) > 1% indicates that a LEFT SHIFT is Present. Laboratory - Chemistry and C hemistry - challengeOrdered By: kikofalconerconrad Ingram on 11-22-2023 Albumin/Globulin [Mass ratio] 1.1 {ratio} 0.9-2.4 [facility] ALP [Catalytic activity/Vol] 59 U/L 45-117 [facility] ALT [Catalytic activity/Vol] 18 U/L 13-56 [facility] CO2 [Moles/Vol] 25.0 mmol/L 21.0-32.0 [facility] Globulin (S) [Mass/Vol] 3.3 g/dL 2.2-4.2 [facility] Urea nitrogen/Creatinine [Mass ratio] 22.0 mg/mg 10-20 [facility] - Hematology and Cell countsOrdered By: kikofalconerconrad Ingram on 11-22-2023 MCH (RBC) [Entitic mass] 31.2 pg 27.0-32.0 [facility] MCHC (RBC) [Mass/Vol] 35.4 g/dL 32-36 [facility] Nucleated RBC/100 WBC (Bld) [Ratio] 0 % 0-5 [facility] Platelet mean volume (Bld) [Entitic vol] 9.7 fL 6.2-12.0 [facility] Platelets (Bld) [#/Vol] 346 10*3/uL 150-450 [facility] No Panel InformationOrdered By: Derik Ingram on 11-22-2023 Estimated GFR (MDRD) Amer 163 mL/min >60 [facility] Comment on above: GFR Calc Estimated GFR (MDRD) Non-Af Amer 134 mL/min >60 [facility] Comment on above: Non- GFR Calc Vitamin D 25-Hydroxy 34.5 ng/mL [facility] Comment on above: Vitamin D 25(OH) Sta tus Range Deficiency <20 ng/mL (50nmol/L) Insufficiency 20 - 30 ng/mL (50 - 75 nmol/L) Sufficiency 30 - 100 ng/mL (75 - 250 nmol/L) Toxicity >100 ng/mL (>250 nmol/L) RBC Auto (Bld) [#/Vol]Ordere d By: Derik Ingram on 11-22-2023 RBC (Bld) [#/Vol] 4.29 10*6/uL 4.2-5.4 [facility] Serum or plasma calcium alvaro urement (mass/volume)Ordered By: Derik Ingram on 11-22-2023 Calcium [Mass/Vol] 8.6 mg/dL 8.5-10.1 [facility] Serum or plasma creatinine m easurement (mass/volume)Ordered By: Dreik Ingram on 11-22-2023 Creatinine [Mass/Vol] 0.54 mg/dL 0.55-1.02 [facility] Comment on above: The validity of the calculated GFR & GFRAA in patients over 70 years has not been determined. Clinical correlation is essential. Serum or plasma thyroid stim ulating hormone (TSH) measurement (units/volume)Ordered By: Derik Ingram on 11-22-2023 TSH Qn 1.22 uIU/mL 0.358-3.74 [facility] Serum or plasma urea nitroge n measurement (mass/volume)Ordered By: Derik Ingram on 11-22-2023 Urea nitrogen [Mass/Vol] 12 mg/dL 7-18 [facility] Thin prep Papanicolaou smear with manual screeningOrdered By: Derik Ingram on 11-22-2023 Thin prep Papanicolaou smear with manual screening 3.6 g/dL 3.2-5.0 [facility] Thin prep Papanicolaou smear with manual screening 8 U/L 15-37 [facility] Thin prep Papanicolaou smear with manual screening 5 5-15 [facility] Thin prep Papanicolaou smear with manual screening 0.91 ng/dL 0.76-1.46 [facility] Absolute lymphocyte countOrd ered By: Derik Ingram on 06-24-2023 Lymphocytes Auto (Unsp spec) [#/Vol] 2.27 10*3/uL 0.83-4.51 [facility] Basophil percentageOrdered B y: Derik Ingram on 06-24-2023 Basophils/100 WBC (Bld) 0.9 % 0-1 [facility] Bilirubin [Mass/Vol] 0.50 mg/dL 0.20-1.00 [facility] Comment on above: For patients on eltr ombopag therapy, use of Dimension [place] TBIL is not recommended. Chloride [Moles/Vol] 105 mmol/L 98-107 [facility] Cholesterol [Mass/Vol] 179 mg/dL <200 [facility] Comment on above: <200 mg/dL Desirable 200-240 mg/dL Borderline >240 mg/dL High Risk Eosinophils/100 WBC (Bld) 1.1 % 0-5 [facility] Glucose [Mass/Vol] 79 mg/dL 74-106 [facility] Neutrophils (Bld) [#/Vol] 2.9 10*3/uL 2.0-7.7 [facility] Neutrophils/100 WBC (Bld) 50.3 % 47-70 [facility] Potassium [Moles/Vol] 3.7 mmol/L 3.5-5.1 [facility] Protein [Mass/Vol] 7.4 g/dL 6.4-8.2 [facility] Sodium [Moles/Vol] 139 mmol/L 136-145 [facility] Triglyceride [Mass/Vol] 59 mg/dL <199 [facility] Comment on above: The drugs N-Acetylcy steine and Metamizole may falsely depress this assay.Serum Triglycerides Reference Interval Normal <150 mg/dL Borderline high 150 - 199 mg/dL High 200 - 499 mg/dL Very High > or = 500 mg/dL WBC (Bld) [#/Vol] 5.7 10*3/uL 4.4-11.0 [facility] Blood erythrocytes count (nu mber/volume)Ordered By: Derik Ingram on 06-24-2023 RBC (Bld) [#/Vol] 4.74 10*6/uL 4.2-5.4 [facility] Blood hemoglobin measurement (mass/volume)Ordered By: Derik Ingram on 06-24-2023 Hemoglobin (Bld) [Mass/Vol] 14.5 g/dL 12.0-15.0 [facility] Blood lymphocytes/100 leukoc ytesOrdered By: Derik Ingram on 06-24-2023 Lymphocytes/100 WBC (Bld) 40.1 % 19-41 [facility] Blood monocytes/100 leukocyt esOrdered By: Derik Ingram on 06-24-2023 Monocytes/100 WBC (Bld) 7.2 % 0-10 [facility] Blood platelet mean volumeOr dered By: Derik Ingram on 06-24-2023 Platelet mean volume (Bld) [Entitic vol] 10.4 fL 6.2-12.0 [facility] Determination of erythrocyte mean corpuscular volume (MCV)Ordered By: Derik Ingram on 06-24-2023 MCV (RBC) [Entitic vol] 87.6 fL 81-99 [facility] Hematocrit Auto (Bld) [Volum e fraction]Ordered By: Derik Ingram on 06-24-2023 Hematocrit (Bld) [Volume fraction] 41.5 % 37-47 [facility] - Chemistry and C hemistry - challengeOrdered By: Derik Ingram on 06-24-2023 ALP [Catalytic activity/Vol] 66 U/L 45-117 [facility] ALT [Catalytic activity/Vol] 20 U/L 13-56 [facility] CO2 [Moles/Vol] 22.0 mmol/L 21.0-32.0 [facility] Globulin (S) [Mass/Vol] 3.6 g/dL 2.2-4.2 [facility] Urea nitrogen/Creatinine [Mass ratio] 16.5 mg/mg 10-20 [facility] - Hematology and Cell countsOrdered By: Derik Ingram on 06-24-2023 Erythrocyte distribution width (RBC) [Entitic vol] 38.8 fL 35.1-43.9 [facility] Erythrocyte distribution width (RBC) [Ratio] 12.1 % 11.6-14.6 [facility] Immature granulocytes/100 WBC (Bld) 0.400 % 0.0-0.9 [facility] Comment on above: IG% - Immature Granu locytes (promyelocytes, myelocytes and metamyelocytes) > 1% indicates that a LEFT SHIFT is Present. MCH (RBC) [Entitic mass] 30.6 pg 27.0-32.0 [facility] Nucleated RBC/100 WBC (Bld) [Ratio] 0 % 0-5 [facility] MCHC Auto (RBC) [Mass/Vol]Or dered By: Derik Ingram on 06-24-2023 MCHC (RBC) [Mass/Vol] 34.9 g/dL 32-36 [facility] No Panel InformationOrdered By: Derik Ingram on 06-24-2023 Estimated GFR (MDRD) Amer 144 mL/min >60 [facility] Comment on above: GFR Calc Estimated GFR (MDRD) Non-Af Amer 119 mL/min >60 [facility] Comment on above: Non- GFR Calc Platelets bldOrdered By: Santosh Ingram on 06-24-2023 Platelets (Bld) [#/Vol] 320 10*3/uL 150-450 [facility] Serum or plasma albumin alvaro urement (mass/volume)Ordered By: Derik Ingram on 06-24-2023 Albumin [Mass/Vol] 3.8 g/dL 3.2-5.0 [facility] Serum or plasma albumin/glob ulin mass ratioOrdered By: unique Ingram on 06-24-2023 Albumin/Globulin [Mass ratio] 1.1 {ratio} 0.9-2.4 [facility] Serum or plasma calcium alvaro urement (mass/volume)Ordered By: Derik Ingram on 06-24-2023 Calcium [Mass/Vol] 9.0 mg/dL 8.5-10.1 [facility] Serum or plasma cholesterol in HDL measurement (mass/volume)Ordered By: Derik Ingram on 06-24-2023 Cholesterol in HDL [Mass/Vol] 57 mg/dL >40 [facility] Comment on above: The drugs N-Acetylcy steine and Metamizole may falsely depress this assay. Reference Range HDL <40 mg/dL Low HDL Cholesterol HDL >or= 60 mg/dL High HDL Cholesterol Serum or plasma cholesterol in VLDL measurement (mass/volume)Ordered By: Derik Ingram on 06-24-2023 Cholesterol in VLDL [Mass/Vol] 12 mg/dL 5-40 [facility] Serum or plasma creatinine m easurement (mass/volume)Ordered By: Derik Ingram on 06-24-2023 Creatinine [Mass/Vol] 0.61 mg/dL 0.55-1.02 [facility] Comment on above: The validity of the calculated GFR & GFRAA in patients over 70 years has not been determined. Clinical correlation is essential. Serum or plasma low density lipoprotein (LDL) cholesterol measurement (mass/volume)Ordered By: Derik Ingram on 06-24-2023 Cholesterol in LDL [Mass/Vol] 110 mg/dL 0-130 [facility] Serum or plasma urea nitroge n measurement (mass/volume)Ordered By: Derik Ingram on 06-24-2023 Urea nitrogen [Mass/Vol] 10 mg/dL 7-18 [facility] Thin prep Papanicolaou smear with manual screeningOrdered By: Derik Ingram on 06-24-2023 Thin prep Papanicolaou smear with manual screening 12 U/L 15-37 [facility] Thin prep Papanicolaou smear with manual screening 12 5-15 [facility] Whole blood hemoglobin A1c/t otal hemoglobin ratio (mass fraction)Ordered By: Derik Ingram on 06-24-2023 HbA1c (Bld) [Mass fraction] 4.9 % 3.8-5.6 [facility] Comment on above: Normal < 5.7 % Predi abetic 5.7 - 6.4 % Diabetic >or= 6.5 % Please note range changes. Glucose Glucometer (BldC) [M ass/Vol]Ordered By: Alison Cochran on 04-10-2023 Glucose [Mass/Vol] 127 mg/dL 74-106 [facility] Comment on above: MANAGEMENT OF PATIEN T CARE PER NURSING PROTOCOL Absolute lymphocyte countOrd ered By: Alison Cochran on 04-09-2023 Lymphocytes Auto (Unsp spec) [#/Vol] 1.80 10*3/uL 0.83-4.51 [facility] Basophil percentageOrdered B y: Alison Cochran on 04-09-2023 Basophils/100 WBC (Bld) 0.4 % 0-1 [facility] Eosinophils/100 WBC (Bld) 0.2 % 0-5 [facility] Neutrophils (Bld) [#/Vol] 9.5 10*3/uL 2.0-7.7 [facility] Neutrophils/100 WBC (Bld) 77.4 % 47-70 [facility] WBC (Bld) [#/Vol] 12.2 10*3/uL 4.4-11.0 [facility] Blood erythrocytes count (nu mber/volume)Ordered By: Alison Cochran on 04-09-2023 RBC (Bld) [#/Vol] 4.37 10*6/uL 4.2-5.4 [facility] Blood hemoglobin measurement (mass/volume)Ordered By: Alison Cochran on 04-09-2023 Hemoglobin (Bld) [Mass/Vol] 13.8 g/dL 12.0-15.0 [facility] Blood lymphocytes/100 leukoc ytesOrdered By: Alison Cochran on 04-09-2023 Lymphocytes/100 WBC (Bld) 14.7 % 19-41 [facility] Blood monocytes/100 leukocyt esOrdered By: Alison Cochran on 04-09-2023 Monocytes/100 WBC (Bld) 6.2 % 0-10 [facility] Blood platelet mean volumeOr dered By: Alison Cochran on 04-09-2023 Platelet mean volume (Bld) [Entitic vol] 10.9 fL 6.2-12.0 [facility] Determination of erythrocyte mean corpuscular volume (MCV)Ordered By: Alison Cochran on 04-09-2023 MCV (RBC) [Entitic vol] 89.9 fL 81-99 [facility] Hematocrit Auto (Bld) [Volum e fraction]Ordered By: Alison Cochran on 04-09-2023 Hematocrit (Bld) [Volume fraction] 39.3 % 37-47 [facility] - Hematology and Cell countsOrdered By: Alison Cochran on 04-09-2023 Erythrocyte distribution width (RBC) [Entitic vol] 42.5 fL 35.1-43.9 [facility] Erythrocyte distribution width (RBC) [Ratio] 12.9 % 11.6-14.6 [facility] Immature granulocytes/100 WBC (Bld) 1.100 % 0.0-0.9 [facility] Comment on above: IG% - Immature Granu locytes (promyelocytes, myelocytes and metamyelocytes) > 1% indicates that a LEFT SHIFT is Present. MCH (RBC) [Entitic mass] 31.6 pg 27.0-32.0 [facility] Nucleated RBC/100 WBC (Bld) [Ratio] 0 % 0-5 [facility] MCHC Auto (RBC) [Mass/Vol]Or dered By: Alison Cochran on 04-09-2023 MCHC (RBC) [Mass/Vol] 35.1 g/dL 32-36 [facility] No Panel InformationOrdered By: Alison Cochran on 04-09-2023 Vaginal Amniotic Fluid Detection Positive Negative [facility] Comment on above: Amniotic fluid prese nt indicates rupture of Membranes. RESULTS CALLED TO TEENA KHALIL 04/09/23 1609 Lauri Hung.REPORT READ BACK BY SAME . Platelets bldOrdered By: Diego Cochran on 04-09-2023 Platelets (Bld) [#/Vol] 218 10*3/uL 150-450 [facility] Serum Treponema species anti body detectionOrdered By: Alison Cochran on 04-09-2023 Treponema sp Ab Ql (S) Non-Reactive [facility] - Chemistry and C hemistry - challengeon 04-04-2023 Glucose Ql (U) Negative [facility] - Urinalysison Protein Ql (U) Negative [facility] - Chemistry and C hemistry - challengeon 03-28-2023 Glucose Ql (U) Negative [facility] - Urinalysison Protein Ql (U) Negative [facility] No Panel InformationOrdered By: Nahed Blanca on 03-28-2023 Group B Streptococcus Culture Group B Beta Streptococcus is not isolated. [facility] - Chemistry and C hemistry - challengeon 03-25-2023 Glucose Ql (U) Negative [facility] - Urinalysison Protein Ql (U) Negative [facility] No Panel InformationOrdered By: Nahed Blanca on 03-25-2023 Group B Streptococcus Culture Group B Beta Streptococcus is not isolated. [facility] - Chemistry and C hemistry - challengeon 03-21-2023 Glucose Ql (U) Negative [facility] - Urinalysison Protein Ql (U) Negative [facility] - Chemistry and C hemistry - challengeon 03-18-2023 Glucose Ql (U) Negative [facility] - Urinalysison Protein Ql (U) Negative [facility] - Chemistry and C hemistry - challengeon 03-15-2023 Glucose Ql (U) Negative [facility] - Urinalysison Protein Ql (U) Negative [facility] - Chemistry and C hemistry - challengeon 03-04-2023 Glucose Ql (U) Negative [facility] - Urinalysison Protein Ql (U) Negative [facility] - Chemistry and C hemistry - challengeon 02-25-2023 Glucose Ql (U) Negative [facility] - Urinalysison Protein Ql (U) Negative [facility] - Chemistry and C hemistry - challengeon 02-18-2023 Glucose Ql (U) Negative [facility] - Urinalysison Protein Ql (U) Negative [facility] Absolute lymphocyte countOrd ered By: Dr. Curiel on 02-04-2023 Lymphocytes Auto (Unsp spec) [#/Vol] 1.40 10*3/uL 0.83-4.51 [facility] Basophil percentageOrdered B y: Dr. Curiel on 02-04-2023 Basophils/100 WBC (Bld) 0.5 % 0-1 [facility] Eosinophils/100 WBC (Bld) 0.7 % 0-5 [facility] Neutrophils (Bld) [#/Vol] 5.6 10*3/uL 2.0-7.7 [facility] Neutrophils/100 WBC (Bld) 68.4 % 47-70 [facility] WBC (Bld) [#/Vol] 8.2 10*3/uL 4.4-11.0 [facility] [facility] Blood erythrocytes count (nu mber/volume)Ordered By: Dr. Curiel on 02-04-2023 RBC (Bld) [#/Vol] 3.84 10*6/uL 4.2-5.4 [facility] Blood hemoglobin measurement (mass/volume)Ordered By: Dr. Curiel on 02-04-2023 Hemoglobin (Bld) [Mass/Vol] 12.2 g/dL 12.0-15.0 [facility] Blood lymphocytes/100 leukoc ytesOrdered By: Dr. Curiel on 02-04-2023 Lymphocytes/100 WBC (Bld) 17.1 % 19-41 [facility] Blood monocytes/100 leukocyt esOrdered By: Dr. Curiel on 02-04-2023 Monocytes/100 WBC (Bld) 12.2 % 0-10 [facility] Blood platelet mean volumeOr dered By: Dr. Curiel on 02-04-2023 Platelet mean volume (Bld) [Entitic vol] 9.7 fL 6.2-12.0 [facility] Determination of erythrocyte mean corpuscular volume (MCV)Ordered By: Dr. Curiel on 02-04-2023 MCV (RBC) [Entitic vol] 90.9 fL 81-99 [facility] HIV 1 and HIV-2 antibody ass ay with HIV-1 p24 antigen detectionOrdered By: Dr. Curiel on 02-04-2023 HIV 1+2 Ab+HIV1 p24 Ag IA Ql Non-Reactive Nonreactive [facility] Hematocrit Auto (Bld) [Volum e fraction]Ordered By: Dr. Curiel on 02-04-2023 Hematocrit (Bld) [Volume fraction] 34.9 % 37-47 [facility] Laboratory - Chemistry and C hemistry - challengeon 02-04-2023 Glucose Ql (U) Negative [facility] Laboratory - Hematology and Cell countsOrdered By: Dr. Curiel on 02-04-2023 Erythrocyte distribution width (RBC) [Entitic vol] 41.2 fL 35.1-43.9 [facility] Erythrocyte distribution width (RBC) [Ratio] 12.6 % 11.6-14.6 [facility] Immature granulocytes/100 WBC (Bld) 1.100 % 0.0-0.9 [facility] Comment on above: IG% - Immature Granu locytes (promyelocytes, myelocytes and metamyelocytes) > 1% indicates that a LEFT SHIFT is Present. MCH (RBC) [Entitic mass] 31.8 pg 27.0-32.0 [facility] Nucleated RBC/100 WBC (Bld) [Ratio] 0 % 0-5 [facility] Laboratory - Urinalysison Protein Ql (U) Negative [facility] MCHC Auto (RBC) [Mass/Vol]Or dered By: Dr. Curiel on 02-04-2023 MCHC (RBC) [Mass/Vol] 35.0 g/dL 32-36 [facility] Platelets bldOrdered By: Dr. Curiel on 02-04-2023 Platelets (Bld) [#/Vol] 214 10*3/uL 150-450 [facility] Serum Treponema species anti body detectionOrdered By: Dr. Curiel on 02-04-2023 Treponema sp Ab Ql (S) Non-Reactive [facility] Absolute lymphocyte countOrd ered By: Dr. Curiel on 12-10-2022 Lymphocytes Auto (Unsp spec) [#/Vol] 1.82 10*3/uL 0.83-4.51 [facility] Basophil percentageOrdered B y: Dr. Curiel on 12-10-2022 Basophils/100 WBC (Bld) 0.4 % 0-1 [facility] Eosinophils/100 WBC (Bld) 0.6 % 0-5 [facility] Neutrophils (Bld) [#/Vol] 5.9 10*3/uL 2.0-7.7 [facility] Neutrophils/100 WBC (Bld) 69.6 % 47-70 [facility] WBC (Bld) [#/Vol] 8.4 10*3/uL 4.4-11.0 [facility] Blood erythrocytes count (nu mber/volume)Ordered By: Dr. Curiel on 12-10-2022 RBC (Bld) [#/Vol] 3.73 10*6/uL 4.2-5.4 [facility] Blood hemoglobin measurement (mass/volume)Ordered By: Dr. Curiel on 12-10-2022 Hemoglobin (Bld) [Mass/Vol] 12.1 g/dL 12.0-15.0 [facility] Blood lymphocytes/100 leukoc ytesOrdered By: Dr. Curiel on 12-10-2022 Lymphocytes/100 WBC (Bld) 21.6 % 19-41 [facility] Blood monocytes/100 leukocyt esOrdered By: Dr. Curiel on 12-10-2022 Monocytes/100 WBC (Bld) 7.2 % 0-10 [facility] Blood platelet mean volumeOr dered By: Dr. Curiel on 12-10-2022 Platelet mean volume (Bld) [Entitic vol] 9.7 fL 6.2-12.0 [facility] Determination of erythrocyte mean corpuscular volume (MCV)Ordered By: Dr. Curiel on 12-10-2022 MCV (RBC) [Entitic vol] 91.2 fL 81-99 [facility] HIV 1 and HIV-2 antibody ass ay with HIV-1 p24 antigen detectionOrdered By: Dr. Curiel on 12-10-2022 HIV 1+2 Ab+HIV1 p24 Ag IA Ql Non-Reactive Nonreactive [facility] Hematocrit Auto (Bld) [Volum e fraction]Ordered By: Dr. Curiel on 12-10-2022 Hematocrit (Bld) [Volume fraction] 34.0 % 37-47 [facility] Laboratory - Hematology and Cell countsOrdered By: Dr. Curiel on 12-10-2022 Erythrocyte distribution width (RBC) [Entitic vol] 41.1 fL 35.1-43.9 [facility] Erythrocyte distribution width (RBC) [Ratio] 12.5 % 11.6-14.6 [facility] Immature granulocytes/100 WBC (Bld) 0.600 % 0.0-0.9 [facility] Comment on above: IG% - Immature Granu locytes (promyelocytes, myelocytes and metamyelocytes) > 1% indicates that a LEFT SHIFT is Present. MCH (RBC) [Entitic mass] 32.4 pg 27.0-32.0 [facility] Nucleated RBC/100 WBC (Bld) [Ratio] 0 % 0-5 [facility] MCHC Auto (RBC) [Mass/Vol]Or dered By: Dr. Curiel on 12-10-2022 MCHC (RBC) [Mass/Vol] 35.6 g/dL 32-36 [facility] No Panel InformationOrdered By: Dr. Curiel on 12-10-2022 Hepatitis B Surface Antigen Non-Reactive Nonreactive [facility] Hepatitis C Antibody Non-Reactive Nonreactive [facility] Comment on above: Non Reactive: < 0.8 Equivocal: >/= 0.8 to < 1.0 Reactive: >/= 1.0The CDC recommends that a reactive/equivocal HCV antibody result be followed up by the HCV Nucleic Acid Amplificationtest (392822) Miscellaneous Test See comment [facility] Comment on above: TEST RESULT LIMITSAF P, Serum, Open Spina Bifida Results Report Test Results: *Screen Negative* Gest. Age on Collection Date 21.7 weeks Gestat. Age Based On LMP Recalculations are not recommended when gestational dating by LMP and ultrasound are within 10 days. [age] Race Weight 217 lbs Insulin Dep Diabetes Yes Multiple Gestation No AFP Value 40.5 ng/mL AFP MoM 0.86 OSBR Risk 1 IN 6184 Interpretation Interpretation: Screen NegativeThis result is screen negative for OSB. The AFP MoM calculated is based on the gestational age provided. MS-AFP can identify up to 80% of open neural tube defects. Closed neural tube defects and some open defects may not be detected by this test. This test does not screen for Down Syndrome or Trisomy 18. If screening for Down Syndrome or Trisomy 18 is desired, contact [employer] [facility] to discuss available options. The [employer] recommends amniocentesis be offered to women age 35 and older.Comment: Marifer Keating, Ph.D., DABCCDirectorReferences: Available Upon Request.Multiples Of Median Cutoffs For AFP ElevationsSingleton 2.5 Black 2.8IDD 2.0 Twins 4.5 Abbreviation DefinitionsIDD - Insulin Dep DiabetesOSBR - Open Spina Bifida RiskFor further inquiries contact [employer] [facility] at [phone].This test was developed and its performance characteristicsdetermined by [employer]. It has not been cleared or approvedby the Food and Drug Administration. TESTING PERFORMED AT [facility]. ORIGINAL REPORT ON FILE IN LAB CONTAINS ADDITIONAL TEST SITE INFORMATION. Rubella IgG Antibody Reactive Nonreactive [facility] Comment on above: Antibody Results Int erpretation of Immune Status Non Reactive Presumed Non-Immune Equivocal Equivocal Reactive Presumed Immune Platelets bldOrdered By: Dr. Curiel on 12-10-2022 Platelets (Bld) [#/Vol] 249 10*3/uL 150-450 [facility] Serum Treponema species anti body detectionOrdered By: Dr. Curiel on 12-10-2022 Treponema sp Ab Ql (S) Non-Reactive [facility] Laboratory - Chemistry and C hemistry - challengeon 11-13-2022 Glucose Ql (U) Negative [facility] Laboratory - Urinalysison Protein Ql (U) Negative [facility] Laboratory - Chemistry and C hemistry - challengeon 10-16-2022 Glucose Ql (U) Negative [facility] Laboratory - Urinalysison Protein Ql (U) Negative [facility] Laboratory - Hematology and Cell countson 10-11-2022 HbA1c (Bld) [Mass fraction] 5.7 % 4.2-6.3 [facility] Absolute lymphocyte countOrd ered By: Dr. Curiel on 10-01-2022 Lymphocytes Auto (Unsp spec) [#/Vol] 1.68 10*3/uL 0.83-4.51 [facility] Basophil percentageOrdered B y: Dr. Curiel on 10-01-2022 Basophils/100 WBC (Bld) 0.4 % 0-1 [facility] Eosinophils/100 WBC (Bld) 1.0 % 0-5 [facility] Neutrophils (Bld) [#/Vol] 4.7 10*3/uL 2.0-7.7 [facility] Neutrophils/100 WBC (Bld) 66.9 % 47-70 [facility] WBC (Bld) [#/Vol] 7.1 10*3/uL 4.4-11.0 [facility] Blood erythrocytes count (nu mber/volume)Ordered By: Dr. Curiel on 10-01-2022 RBC (Bld) [#/Vol] 4.21 10*6/uL 4.2-5.4 [facility] Blood hemoglobin measurement (mass/volume)Ordered By: Dr. Curiel on 10-01-2022 Hemoglobin (Bld) [Mass/Vol] 13.4 g/dL 12.0-15.0 [facility] Blood lymphocytes/100 leukoc ytesOrdered By: Dr. Curiel on 10-01-2022 Lymphocytes/100 WBC (Bld) 23.7 % 19-41 [facility] Blood monocytes/100 leukocyt esOrdered By: Dr. Curiel on 10-01-2022 Monocytes/100 WBC (Bld) 6.4 % 0-10 [facility] Blood platelet mean volumeOr dered By: Dr. Curiel on 10-01-2022 Platelet mean volume (Bld) [Entitic vol] 9.3 fL 6.2-12.0 [facility] Determination of erythrocyte mean corpuscular volume (MCV)Ordered By: Dr. Curiel on 10-01-2022 MCV (RBC) [Entitic vol] 89.8 fL 81-99 [facility] Gestational diabetes screen 1-hour screen with 50g oral glucose loadOrdered By: Dr. Curiel on 10-01-2022 Glucose 1 Hr post 50 g glucose PO [Mass/Vol] 194 mg/dL 70-140 [facility] HIV 1 and HIV-2 antibody ass ay with HIV-1 p24 antigen detectionOrdered By: Dr. Curiel on 10-01-2022 HIV 1+2 Ab+HIV1 p24 Ag IA Ql Non-Reactive Nonreactive [facility] Hematocrit Auto (Bld) [Volum e fraction]Ordered By: Dr. Curiel on 10-01-2022 Hematocrit (Bld) [Volume fraction] 37.8 % 37-47 [facility] Laboratory - Hematology and Cell countsOrdered By: Dr. Curiel on 10-01-2022 Erythrocyte distribution width (RBC) [Entitic vol] 39.0 fL 35.1-43.9 [facility] Erythrocyte distribution width (RBC) [Ratio] 11.9 % 11.6-14.6 [facility] Immature granulocytes/100 WBC (Bld) 1.600 % 0.0-0.9 [facility] Comment on above: IG% - Immature Granu locytes (promyelocytes, myelocytes and metamyelocytes) > 1% indicates that a LEFT SHIFT is Present. MCH (RBC) [Entitic mass] 31.8 pg 27.0-32.0 [facility] Nucleated RBC/100 WBC (Bld) [Ratio] 0 % 0-5 [facility] MCHC Auto (RBC) [Mass/Vol]Or dered By: Dr. Curiel on 10-01-2022 MCHC (RBC) [Mass/Vol] 35.4 g/dL 32-36 [facility] No Panel InformationOrdered By: Dr. Curiel on 10-01-2022 Hepatitis B Surface Antigen Non-Reactive Nonreactive [facility] Hepatitis C Antibody Non-Reactive Nonreactive [facility] Comment on above: Non Reactive: < 0.8 Equivocal: >/= 0.8 to < 1.0 Reactive: >/= 1.0The CDC recommends that a reactive/equivocal HCV antibody result be followed up by the HCV Nucleic Acid Amplificationtest (127752) Miscellaneous Test Comment MAILED SPECIMEN [facility] Rubella IgG Antibody Reactive Nonreactive [facility] Comment on above: Antibody Results Int erpretation of Immune Status Non Reactive Presumed Non-Immune Equivocal Equivocal Reactive Presumed Immune Platelets bldOrdered By: Dr. Curiel on 10-01-2022 Platelets (Bld) [#/Vol] 277 10*3/uL 150-450 [facility] Serum Treponema species anti body detectionOrdered By: Dr. Curiel on 10-01-2022 Treponema sp Ab Ql (S) Non-Reactive [facility] Culture, urineOrdered By: Dr Belkys Curiel on 09-19-2022 Bacteria identified Cx Nom (U) Culture exhibits no growth. [facility] Chlamydia trachomatis rRNA d etection by probe and target amplification methodOrdered By: Dr. Curiel on 09-17-2022 C. trachomatis rRNA CHAIM+probe Ql (Unsp spec) Negative Negative [facility] Laboratory - Drug toxicology Ordered By: Dr. Curiel on 09-17-2022 Amphetamines Ql (U) Negative <1000 ng/mL [facility] Benzodiazepines Ql (U) Negative < 200 ng/mL [facility] Cannabinoids Screen Ql (U) Negative < 50 ng/mL [facility] Cocaine Ql (U) Negative < 300 ng/mL [facility] Opiates Ql (U) Negative < 300 ng/mL [facility] Laboratory - Microbiology an d Antimicrobial susceptibilityOrdered By: Dr. Curiel on 09-17-2022 N. gonorrhoeae DNA CHAIM+probe Ql (Unsp spec) Negative Negative [facility] Comment on above: Performed at: =[facility] Susan reeves[address] [id number] Director: Rayne Pate MD, Phone: [phone] No Panel InformationOrdered By: Dr. Curiel on 09-17-2022 MDMA (Ecstasy) Screen Negative < 500 ng/mL [facility] Urine Barbiturates Screen Negative < 200 ng/mL [facility] Urine Drug Screen Comment [facility] Comment on above: CONFIRMATORY TESTING FOR ALL POSITIVE URINE DRUG SCREENRESULTS WILL ONLY BE SENT OUT UPON PHYSICIAN ORDER. VISTA Urine Drug Screen methods provide only preliminaryanalytical test results. A more specific alternate chemicalmethod must be used in order to obtain a confirmedanalytical result. Gas chromatography/mass spectrometery(GC/MS) is the preferred confirmatory method. Clinicalconsideration and professional judgement should be appliedto any drug of abuse test result, particularly whenpreliminary positive results are used. URINE TCA TESTING MUST BE ORDERED SEPARATELY. USE TESTMNEMONIC: [facility] Urine Methadone Screen Negative < 300 ng/mL [facility] Urine phencyclidine (PCP) de tectionOrdered By: Dr. Curiel on 09-17-2022 Phencyclidine Ql (U) Negative < 25 ng/mL [facility] Serum or plasma choriogonado tropin detectionOrdered By: Brenda Irwin on 08-09-2022 HCG ( test) Ql 1049 mIU/mL <4 [facility] Comment on above: hCG levels with Gest ational AgeGestational Age hCG mIU/mL (IU/L)0.2 - 1 week 5 - 501-2 weeks 50 - 5002-3 weeks 100 - 24921-6 weeks 500 - 332358-2 weeks 1000 - 692970-6 weeks 09012 - 100,0006-8 weeks 74576 - 200,0002-3 months 34495 - 100,000 Serum or plasma choriogonado tropin detectionOrdered By: Brenda Irwin on 08-07-2022 HCG ( test) Ql 468 mIU/mL <4 [facility] Comment on above: hCG levels with Gest ational AgeGestational Age hCG mIU/mL (IU/L)0.2 - 1 week 5 - 501-2 weeks 50 - 5002-3 weeks 100 - 16650-5 weeks 500 - 964151-6 weeks 1000 - 311936-8 weeks 48709 - 100,0006-8 weeks 21533 - 200,0002-3 months 82068 - 100,000 Absolute lymphocyte counton 06-19-2022 Lymphocytes Auto (Unsp spec) [#/Vol] 1.79 10*3/uL 0.83-4.51 [facility] Work Phone: Basophil percentageon 2021 Basophils/100 WBC (Bld) 0.8 % 0-1 [facility] Work Phone: Bilirubin [Mass/Vol] 0.40 mg/dL 0.20-1.00 [facility] Work Phone: Comment on above: For patients on eltr ombopag therapy, use of Dimension [place] TBIL is not recommended. Chloride [Moles/Vol] 106 mmol/L 98-107 [facility] Work Phone: Eosinophils/100 WBC (Bld) 1.5 % 0-5 [facility] Work Phone: Glucose [Mass/Vol] 92 mg/dL 74-106 [facility] Work Phone: Neutrophils (Bld) [#/Vol] 3.0 10*3/uL 2.0-7.7 [facility] Work Phone: [phone] Neutrophils/100 WBC (Bld) 55.5 % 47-70 [facility] Work Phone: [phone] Potassium [Moles/Vol] 3.9 mmol/L 3.5-5.1 [facility] Work Phone: [phone] Protein [Mass/Vol] 7.4 g/dL 6.4-8.2 [facility] Work Phone: [phone] Sodium [Moles/Vol] 140 mmol/L 136-145 [facility] Work Phone: WBC (Bld) [#/Vol] 5.3 10*3/uL 4.4-11.0 [facility] Work Phone: [phone] Blood erythrocytes count (nu mber/volume)on 06-19-2022 RBC (Bld) [#/Vol] 4.37 10*6/uL 4.2-5.4 [facility] Work Phone: Blood hemoglobin measurement (mass/volume)on 06-19-2022 Hemoglobin (Bld) [Mass/Vol] 13.8 g/dL 12.0-15.0 [facility] Work Phone: Blood lymphocytes/100 leukoc yteson 06-19-2022 Lymphocytes/100 WBC (Bld) 33.7 % 19-41 [facility] Work Phone: Blood monocytes/100 leukocyt eson 06-19-2022 Monocytes/100 WBC (Bld) 8.1 % 0-10 [facility] Work Phone: Blood platelet mean volumeon 06-19-2022 Platelet mean volume (Bld) [Entitic vol] 9.9 fL 6.2-12.0 [facility] Work Phone: Determination of erythrocyte mean corpuscular volume (MCV)on 06-19-2022 MCV (RBC) [Entitic vol] 91.3 fL 81-99 [facility] Work Phone: Hematocrit Auto (Bld) [Volum e fraction]on 06-19-2022 Hematocrit (Bld) [Volume fraction] 39.9 % 37-47 [facility] Work Phone: Laboratory - Chemistry and C hemistry - challengeon 06-19-2022 ALP [Catalytic activity/Vol] 49 U/L 45-117 [facility] Work Phone: ALT [Catalytic activity/Vol] 22 U/L 13-56 [facility] Work Phone: CO2 [Moles/Vol] 26.0 mmol/L 21.0-32.0 [facility] Work Phone: Globulin (S) [Mass/Vol] 3.7 g/dL 2.2-4.2 [facility] Work Phone: Urea nitrogen/Creatinine [Mass ratio] 22.7 mg/mg 10-20 [facility] Work Phone: Laboratory - Hematology and Cell countson 06-19-2022 Erythrocyte distribution width (RBC) [Entitic vol] 39.5 fL 35.1-43.9 [facility] Work Phone: Erythrocyte distribution width (RBC) [Ratio] 11.9 % 11.6-14.6 [facility] Work Phone: Immature granulocytes/100 WBC (Bld) 0.400 % 0.0-0.9 [facility] Work Phone: Comment on above: IG% - Immature Granu locytes (promyelocytes, myelocytes and metamyelocytes) > 1% indicates that a LEFT SHIFT is Present. MCH (RBC) [Entitic mass] 31.6 pg 27.0-32.0 [facility] Work Phone: Nucleated RBC/100 WBC (Bld) [Ratio] 0 % 0-5 [facility] Work Phone: MCHC Auto (RBC) [Mass/Vol]on 06-19-2022 MCHC (RBC) [Mass/Vol] 34.6 g/dL 32-36 [facility] Work Phone: No Panel Informationon 06-19 Estimated GFR (MDRD) Amer 142 mL/min >60 [facility] Work Phone: Comment on above: GFR Calc Estimated GFR (MDRD) Non-Af Amer 118 mL/min >60 [facility] Work Phone: Comment on above: Non- GFR Calc Vitamin D 25-Hydroxy 23.7 ng/mL [facility] Work Phone: Comment on above: Vitamin D 25(OH) Sta tus Range Deficiency <20 ng/mL (50nmol/L) Insufficiency 20 - 30 ng/mL (50 - 75 nmol/L) Sufficiency 30 - 100 ng/mL (75 - 250 nmol/L) Toxicity >100 ng/mL (>250 nmol/L) Platelets bldon 06-19-2022 Platelets (Bld) [#/Vol] 332 10*3/uL 150-450 [facility] Work Phone: Serum or plasma albumin alvaro urement (mass/volume)on 06-19-2022 Albumin [Mass/Vol] 3.7 g/dL 3.2-5.0 [facility] Work Phone: Serum or plasma albumin/glob ulin mass ratioon 06-19-2022 Albumin/Globulin [Mass ratio] 1.0 {ratio} 0.9-2.4 [facility] Work Phone: Serum or plasma calcium alvaro urement (mass/volume)on 06-19-2022 Calcium [Mass/Vol] 8.8 mg/dL 8.5-10.1 [facility] Work Phone: Serum or plasma creatinine m easurement (mass/volume)on 06-19-2022 Creatinine [Mass/Vol] 0.62 mg/dL 0.55-1.02 [facility] Work Phone: Comment on above: The validity of the calculated GFR & GFRAA in patients over 70 years has not been determined. Clinical correlation is essential. Serum or plasma urea nitroge n measurement (mass/volume)on 06-19-2022 Urea nitrogen [Mass/Vol] 14 mg/dL 7-18 [facility] Work Phone: Thin prep Papanicolaou smear with manual screeningon 06-19-2022 Thin prep Papanicolaou smear with manual screening 11 U/L 15-37 [facility] Work Phone: Thin prep Papanicolaou smear with manual screening 8 5-15 [facility] Work Phone: CBC AND DIFFERENTIALon 03-20 % AUTOMATED IMMATURE GRAN 0.5 % Normal 0.0 - 0.9 [facility] Comment on above: Result Comment: Teresa ture Granulocyte Count (IG) includes promyelocytes, myelocytes and metamyelocytes but does not include bands. Percent differential counts (%) should be interpreted in the context of the absolute cell counts (cells/L). Performed By: #### C BCDF #### [facility] [id number] [place] [address] Basophils (Bld) [#/Vol] 0.06 10*3/uL Normal 0.00 - 0.1 0 [facility] Comment on above: Performed By: #### C BCDF #### [facility] [address] [place] [address] Basophils/100 WBC (Bld) 0.9 % Normal 0.0 - 2.0 [facility] Comment on above: Performed By: #### C BCDF #### [facility] [address] [place] [address] Eosinophils (Bld) [#/Vol] 0.07 10*3/uL Normal 0.00 - 0.70 [facility] Comment on above: Performed By: #### C BCDF #### [facility] [address] [place] [address] Eosinophils/100 WBC (Bld) 1.1 % Normal 0.0 - 6.0 [facility] Comment on above: Performed By: #### C BCDF #### [facility] [address] [place] [address] Erythrocyte distribution width (RBC) [Ratio] 11.5 % Normal 11.5 - 14.5 [facility] Comment on above: Performed By: #### C BCDF #### [facility] [address] [place] [address] Hematocrit (Bld) [Volume fraction] 39.6 % Normal 36.0 - 46.0 [facility] Comment on above: Performed By: #### C BCDF #### [facility] [address] [place] [address] Hemoglobin (Bld) [Mass/Vol] 14.3 g/dL Normal 12.0 - 16.0 [facility] Comment on above: Performed By: #### C BCDF #### [facility] [address] [place] [address] Lymphocytes (Bld) [#/Vol] 2.46 10*3/uL Normal 1.20 - 4.80 [facility] Comment on above: Performed By: #### C BCDF #### [facility] [address] [place] [address] Lymphocytes/100 WBC (Bld) 36.9 % Normal 13.0 - 44.0 [facility] Comment on above: Performed By: #### C BCDF #### [facility] [address] [place] [address] MCHC (RBC) [Mass/Vol] 36.1 g/dL High 32.0 - 36.0 [facility] Comment on above: Performed By: #### C BCDF #### [facility] [address] [place] [address] MCV (RBC) [Entitic vol] 91 fL Normal 80 - 100 [facility] Comment on above: Performed By: #### C BCDF #### [facility] [address] [place] [address] Monocytes (Bld) [#/Vol] 0.47 10*3/uL Normal 0.10 - 1.0 0 [facility] Comment on above: Performed By: #### C BCDF #### [facility] [address] [place] [address] Monocytes/100 WBC (Bld) 7.1 % Normal 2.0 - 10.0 [facility] Comment on above: Performed By: #### C BCDF #### [facility] [address] [place] [address] Neutrophils (Bld) [#/Vol] 3.57 10*3/uL Normal 1.20 - 7.70 [facility] Comment on above: Performed By: #### C BCDF #### [facility] [address] [place] [address] Neutrophils/100 WBC (Bld) 53.5 % Normal 40.0 - 80.0 [facility] Comment on above: Performed By: #### C BCDF #### [facility] [address] [place] [address] NUCLEATED RBC 0.0 /100 WBC Normal 0.0-0.0 [facility] [facility] Comment on above: Performed By: #### C BCDF #### [facility] [address] [place] [address] Platelets (Bld) [#/Vol] 332 10*3/uL Normal 150 - 450 [facility] Comment on above: Performed By: #### C BCDF #### [facility] [address] [place] [address] RBC 4.33 x10E12/L Normal 4.00 - 5.20 [facility] Comment on above: Performed By: #### C BCDF #### [facility] [address] [place] [address] WBC (Bld) [#/Vol] 6.7 10*3/uL Normal 4.4 - 11.3 [facility] Comment on above: Performed By: #### C BCDF #### [facility] [address] [place] [address] COMPREHENSIVE PANELon 2020 Albumin [Mass/Vol] 4.3 g/dL Normal 3.4 - 5.0 [facility] Comment on above: Performed By: #### C MP #### [facility] [address] [place] [address] ALP [Catalytic activity/Vol] 47 U/L Normal 33 - 110 [facility] Comment on above: Performed By: #### C MP #### [facility] [address] [place] [address] ALT [Catalytic activity/Vol] 14 U/L Normal 7 - 45 [facility] Comment on above: Result Comment: Kristi ents treated with Sulfasalazine may generate falsely decreased results for ALT. Performed By: #### C MP #### [facility] [address] [place] [address] Anion gap [Moles/Vol] 13 mmol/L Normal 10 - 20 [facility] Comment on above: Performed By: #### C MP #### [facility] [address] [place] [address] AST [Catalytic activity/Vol] 12 U/L Normal 9 - 39 [facility] Comment on above: Performed By: #### C MP #### [facility] [address] [place] [address] Bilirubin [Mass/Vol] 0.3 mg/dL Normal 0.0 - 1.2 [facility] Comment on above: Performed By: #### C MP #### [facility] [address] [place] [address] Calcium [Mass/Vol] 9.3 mg/dL Normal 8.6 - 10.6 [facility] Comment on above: Performed By: #### C MP #### [facility] [address] [place] [address] Chloride [Moles/Vol] 107 mmol/L Normal 98 - 107 [facility] Comment on above: Performed By: #### C MP #### [facility] [address] [place] [address] Creatinine [Mass/Vol] 0.58 mg/dL Normal 0.50 - 1.05 [facility] Comment on above: Performed By: #### C MP #### [facility] [address] [place] [address] GFR- AM. >60 Normal >60 [facility] Comment on above: Result Comment: CALC ULATIONS OF ESTIMATED GFR ARE PERFORMED USING THE MDRD STUDY EQUATION FOR THE IDMS-TRACEABLE CREATININE METHODS. CLIN CHEM 2007;53:766-72 Performed By: #### C MP #### [facility] [address] [place] [address] GFR-NON AM. >60 Normal >60 [facility] Comment on above: Performed By: #### C MP #### [facility] [address] [place] [address] Glucose [Mass/Vol] 100 mg/dL High 74 - 99 [facility] Comment on above: Performed By: #### C MP #### [facility] [address] [place] [address] HCO3 (Bld) [Moles/Vol] 25 mmol/L Normal 21 - 32 [facility] Comment on above: Performed By: #### C MP #### [facility] [address] [place] [address] Potassium [Moles/Vol] 4.2 mmol/L Normal 3.5 - 5.3 [facility] Comment on above: Performed By: #### C MP #### [facility] [address] [place] [address] Protein [Mass/Vol] 6.6 g/dL Normal 6.4 - 8.2 [facility] Comment on above: Performed By: #### C MP #### [facility] [address] [place] [address] Sodium [Moles/Vol] 141 mmol/L Normal 136 - 145 [facility] Comment on above: Performed By: #### C MP #### [facility] [address] [place] [address] Urea nitrogen [Mass/Vol] 13 mg/dL Normal 6 - 23 [facility] Comment on above: Performed By: #### C MP #### [facility] [address] [place] [address] Complete Blood Count + Diffe rentialon 03-20-2021 Basophils/100 WBC (Bld) 0.9 % 0.0 - 2.0 M [facility] [employer] Work Phone: Erythrocyte distribution width (RBC) [Ratio] 11.5 % See Below [employer] Work Phone: Comment on above: Reference Range: 11. 5 - 14.5 Hematocrit (Bld) [Volume fraction] 39.6 % See Below [employer] Work Phone: Comment on above: Reference Range: 36. 0 - 46.0 Hemoglobin (Bld) [Mass/Vol] 14.3 g/dL See Below [employer] Work Phone: Comment on above: Reference Range: 12. 0 - 16.0 Lymphocytes/100 WBC (Bld) 36.9 % See Below [employer] Work Phone: Comment on above: Reference Range: 13. 0 - 44.0 MCHC (RBC) [Mass/Vol] 36.1 g/dL above high threshold See Below [employer] Work Phone: Comment on above: Reference Range: 32. 0 - 36.0 MCV (RBC) [Entitic vol] 91 fL 80 - 100 M [employer] Work Phone: Monocytes/100 WBC (Bld) 7.1 % 2.0 - 10.0 M [facility] Work Phone: Neutrophils/100 WBC (Bld) 53.5 % See Below [facility] Work Phone: Comment on above: Reference Range: 40. 0 - 80.0 Platelets (Bld) [#/Vol] 332 10*3/uL 150 - 450 [facility] Work Phone: RBC (Bld) [#/Vol] 4.33 {x10E12/L} See Below [facility] Work Phone: Comment on above: Reference Range: 4.0 0 - 5.20 WBC (Bld) [#/Vol] 6.7 10*3/uL 4.4 - 11.3 [facility] Work Phone: Complete Blood Count + Differential 0.06 {x10E9/L} See Below [facility] Work Phone: Comment on above: Reference Range: 0.0 0 - 0.10 Complete Blood Count + Differential 0.07 {x10E9/L} See Below [facility] Work Phone: Comment on above: Reference Range: 0.0 0 - 0.70 Complete Blood Count + Differential 0.47 {x10E9/L} See Below [facility] Work Phone: Comment on above: Reference Range: 0.1 0 - 1.00 Complete Blood Count + Differential 2.46 {x10E9/L} See Below [facility] Work Phone: Comment on above: Reference Range: 1.2 0 - 4.80 Complete Blood Count + Differential 3.57 {x10E9/L} See Below [facility] Work Phone: Comment on above: Reference Range: 1.2 0 - 7.70 Complete Blood Count + Differential 1.1 % 0.0 - 6.0 [facility] Work Phone: Complete Blood Count + Differential 0.5 % 0.0 - 0.9 [facility] Work Phone: Comment on above: Immature Granulocyte Count (IG) includes promyelocytes, myelocytes and metamyelocytes but does not include bands. Percent differential counts (%) should be interpreted in the context of the absolute cell counts (cells/L). Complete Blood Count + Differential 0.0 {/100_WBC} 0.0-0.0 [facility] Work Phone: LIPID PANEL (CORONARY RISK 2 )on 03-20-2021 Cholesterol [Mass/Vol] 169 mg/dL Normal 0 - 199 [facility] Comment on above: Result Comment: . AGE DESIRABLE BORDERLINE HIGH HIGH 0-19 Y 0 - 169 170 - 199 >/= 200 20-24 Y 0 - 189 190 - 224 >/= 225 >24 Y 0 - 199 200 - 239 >/= 240 All ranges are based on fasting samples. Specific therapeutic targets will vary based on patient-specific cardiac risk. . Pediatric guidelines reference:Pediatrics 2011, 128(S5). Adult guidelines reference: NCEP ATPIII Guidelines, NAIF 2001, 258:2486-97 . Venipuncture immediately after or during the administration of Metamizole may lead to falsely low results. Testing should be performed immediately prior to Metamizole dosing. Performed By: #### C MP #### [facility] [address] [place] [address] Cholesterol in HDL [Mass/Vol] 51.2 mg/dL Normal [facility] Comment on above: Result Comment: . AGE VERY LOW LOW NORMAL HIGH 0-19 Y < 35 < 40 40-45 ---- 20-24 Y ---- < 40 >45 ---- >24 Y ---- < 40 40-60 >60 . Performed By: #### C MP #### [facility] [address] [place] [address] Cholesterol in LDL [Mass/Vol] 109 mg/dL High 0 - 99 [facility] Comment on above: Result Comment: . NEAR BORD AGE DESIRABLE OPTIMAL HIGH HIGH VERY HIGH 0-19 Y 0 - 109 --- 110-129 >/= 130 ---- 20-24 Y 0 - 119 --- 120-159 >/= 160 ---- >24 Y 0 - 99 100-129 130-159 160-189 >/=190 . Performed By: #### C MP #### [facility] [address] [place] [address] Cholesterol in VLDL [Mass/Vol] 9 mg/dL Normal 0 - 40 [facility] Comment on above: Performed By: #### C MP #### [facility] [address] [place] [address] Cholesterol.total/Yuni sterol in HDL [Mass ratio] 3.3 {ratio} Normal [facility] Comment on above: Result Comment: REF VALUES DESIRABLE < 3.4 HIGH RISK > 5.0 Performed By: #### C MP #### [facility] [address] [place] [address] Triglyceride [Mass/Vol] 45 mg/dL Normal 0 - 149 [facility] Comment on above: Result Comment: . AGE DESIRABLE BORDERLINE HIGH HIGH VERY HIGH 0 D-90 D 19 - 174 ---- ---- ---- 91 D- 9 Y 0 - 74 75 - 99 >/= 100 ---- 10-19 Y 0 - 89 90 - 129 >/= 130 ---- 20-24 Y 0 - 114 115 - 149 >/= 150 ---- >24 Y 0 - 149 150 - 199 200- 499 >/= 500 . Venipuncture immediately after or during the administration of Metamizole may lead to falsely low results. Testing should be performed immediately prior to Metamizole dosing. Performed By: #### C MP #### [facility] [address] [place] [address] Laboratory - Chemistry and C hemistry - challengeon 03-20-2021 Albumin BCP dye [Mass/Vol] 4.3 g/dL 3.4 - 5.0 [facility] Work Phone: ALP [Catalytic activity/Vol] 47 U/L 33 - 110 [facility] Work Phone: ALT With P-5'-P [Catalytic activity/Vol] 14 U/L 7 - 45 [facility] Work Phone: Comment on above: Patients treated wit h Sulfasalazine may generate falsely decreased results for ALT. Anion gap [Moles/Vol] 13 mmol/L 10 - 20 [facility] Work Phone: AST With P-5'-P [Catalytic activity/Vol] 12 U/L 9 - 39 [facility] Work Phone: Bilirubin [Mass/Vol] 0.3 mg/dL 0.0 - 1.2 [facility] Work Phone: Calcium [Mass/Vol] 9.3 mg/dL 8.6 - 10.6 [facility] Work Phone: Chloride [Moles/Vol] 107 mmol/L 98 - 107 [facility] Work Phone: CO2 [Moles/Vol] 25 mmol/L 21 - 32 [facility] Work Phone: Creatinine [Mass/Vol] 0.58 mg/dL See Below [facility] Work Phone: Comment on above: Reference Range: 0.5 0 - 1.05 Glucose [Mass/Vol] 100 mg/dL above high threshold 74 - 99 [facility] Work Phone: Potassium [Moles/Vol] 4.2 mmol/L 3.5 - 5.3 [facility] Work Phone: Protein [Mass/Vol] 6.6 g/dL 6.4 - 8.2 [facility] Work Phone: Sodium [Moles/Vol] 141 mmol/L 136 - 145 [facility] Work Phone: Urea nitrogen [Mass/Vol] 13 mg/dL 6 - 23 [facility] Work Phone: Lipid Panelon 03-20-2021 Cholesterol [Mass/Vol] 169 mg/dL 0 - 199 [facility] Work Phone: Comment on above: . AGE DESIRABLE BORD LETI HIGH HIGH 0-19 Y 0 - 169 170 - 199 >/= 200 20-24 Y 0 - 189 190 - 224 >/= 225 >24 Y 0 - 199 200 - 239 >/= 240 All ranges are based on fasting samples. Specific therapeutic targets will vary based on patient-specific cardiac risk.. Pediatric guidelines reference:Pediatrics 2011, 128(S5). Adult guidelines reference: NCEP ATPIII Guidelines, NAIF 2001, 258:2486-97. Venipuncture immediately after or during the administration of Metamizole may lead to falsely low results. Testing should be performed immediately prior to Metamizole dosing. Cholesterol in HDL [Mass/Vol] 51.2 mg/dL [facility] Work Phone: Comment on above: . AGE VERY LOW LOW N ORMAL HIGH 0-19 Y < 35 < 40 40-45 ---- 20-24 Y ---- < 40 >45 ---- >24 Y ---- < 40 40-60 >60. Cholesterol in LDL [Mass/Vol] 109 mg/dL above high threshold 0 - 99 [facility] Work Phone: Comment on above: . NEAR BORD AGE MAINE RABLE OPTIMAL HIGH HIGH VERY HIGH 0-19 Y 0 - 109 --- 110-129 >/= 130 ---- 20-24 Y 0 - 119 --- 120-159 >/= 160 ---- >24 Y 0 - 99 100-129 130-159 160-189 >/=190. Cholesterol.total/Yuni sterol in HDL [Mass ratio] 3.3 {ratio} [facility] Work Phone: Comment on above: REF VALUESDESIRABLE < 3.4HIGH RISK > 5.0 Triglyceride [Mass/Vol] 45 mg/dL 0 - 149 M [facility] [employer] Phone: Comment on above: . AGE DESIRABLE BORD LETI HIGH HIGH VERY HIGH 0 D-90 D 19 - 174 ---- ---- ----91 D- 9 Y 0 - 74 75 - 99 >/= 100 ---- 10-19 Y 0 - 89 90 - 129 >/= 130 ---- 20-24 Y 0 - 114 115 - 149 >/= 150 ---- >24 Y 0 - 149 150 - 199 200- 499 >/= 500. Venipuncture immediately after or during the administration of Metamizole may lead to falsely low results. Testing should be performed immediately prior to Metamizole dosing. Lipid Panel 9 mg/dL 0 - 40 [facility] Work Phone: No Panel Informationon 03-20 >60 >60 [facility] Work Phone: Comment on above: CALCULATIONS OF YANIQUE MATED GFR ARE PERFORMED USING THE MDRD STUDY EQUATION FOR THE IDMS-TRACEABLE CREATININE METHODS. CLIN CHEM 2007;53:766-72 Office Visit ([facility])on 03-20-2021 Follow-up visit Diagnoses/Problems Palpitations (785.1) (R00.2) Vitamin D deficiency (268.9) (E55.9) Insulin resistance (277.7) (E88.81) GERD (gastroesophageal reflux disease) (530.81) (K21.9) Orders GERD (gastroesophageal reflux disease) Start: Omeprazole 20 MG Oral Capsule Delayed Release; Take 1 capsule by mouth daily Insulin resistance Lipid Panel; Status:Active; Requested for:20Mar2021; Palpitations Complete Blood Count + Differential; Status:Active; Requested for:20Mar2021; Comprehensive Metabolic Panel; Status:Active; Requested for:20Mar2021; IO EKG Electrocardiogram- 12 Lead; Status:Active - Perform Order; Requested for:20Mar2021; Vitamin D deficiency Vitamin D 25-Hydroxy; Status:Active; Requested for:20Mar2021; Patient Discussion/Summary start omeprazole once daily get labs drawn and we'll call with results keep scheduled April appt. Chief Complaint PT. has been feeling off lately, stopped taking control, headaches stopped since and other concerns. Pt. denies having a temp of 100 degrees or greater, new or worsening cough, sob, chills, headache, diarrhea, sore throat, body aches, malaise, nausea/vomiting,runny nose congestion. HAve you had any symptoms? PT. denies coming into contact with persons with confirmed covid. gm. History of Present Illness 35 yo F with chronic headaches, GERD, palpitations, paresthesias, fatigue, nausea, diarrhea, and vitamin D deficiency, here for feeling off. recently took several different OCPs off OCP since 02/18/21 - they were causing headaches has [employer] took a test - negative very tired sense that she can't take a full breath - pressurelike sensation - feels like she needs to belch thinks her heart rate is higher than average - HR around 110s left arm weakness persists - testing was all negative - note it's worse if her posture is worse left side of chest slightly painful went off omeprazole around a year ago Active Problems Chronic headaches (784.0) (R51.9,G89.29) Diarrhea (787.91) (R19.7) Fatigue (780.79) (R53.83) Added by Problem List Migration; 2013-10-09 GERD (gastroesophageal reflux disease) (530.81) (K21.9) Hiatal hernia (553.3) (K44.9) Insulin resistance (277.7) (E88.81) Labyrinthitis (386.30) (H83.09) Nausea (787.02) (R11.0) Need for influenza vaccination (V04.81) (Z23) Otalgia (388.70) (H92.09) Pain of left upper extremity (729.5) (M79.602) Palpitations (785.1) (R00.2) Paresthesias (782.0) (R20.2) Persistent cough (786.2) (R05) Vitamin D deficiency (268.9) (E55.9) Weakness of left arm (729.89) (R29.898) Weight gain, abnormal (783.1) (R63.5) Weight loss (783.21) (R63.4) Past Medical History History of Obesity (BMI 30-39.9) (278.00) (E66.9) Resolved Date: 20 Apr 2020 History of Weight loss, unintentional (783.21) (R63.4) Resolved Date: 01 Oct 2016 Surgical History History of Cholecystectomy History of Colonoscopy History of Ear Pressure Equalization Tube, Insertion History of Tonsillectomy With Adenoidectomy Family History Family history of Anxiety Family history of depression (V17.0) (Z81.8) Family history of hyperlipidemia (V18.19) (Z83.438) Family history of hypertension (V17.49) (Z82.49) No pertinent family history Social History Never a smoker No alcohol use No caffeine use Non-smoker (V49.89) (Z78.9) Allergies [employer]Box MISC Recorded By: Mirna Small; 04/20/2020 10:57:16 AM Vitals Vital Signs Recorded: 20Mar2021 09:07AM Oyypadvgftp57.9 F Heart Rate88 Gfnpswey923, RUE, Sitting Jzfrlljor25, RUE, Sitting Blood Pressure Cuff SizeAdult Afzlvz949 lb 2 oz BMI Aikfzrytey86.49 kg/m2 BSA Calculated1.98 Tobacco Useb) No O2 [id number], RA [id number] Physical Exam General: Well-developed, well-nourished, alert and in no acute distress. HEENT: Pupils equal, round, and reactive to light. No conjunctival injection. Oropharynx clear and moist without exudates or erythema. Neck supple. No lymphadenopathy or thyromegaly. Cardiac: Regular rate and rhythm, no murmurs, normal S1/S2. Peripheral pulses intact. Pulmonary: Clear to auscultation bilaterally. No wheezes, rales, or rhonchi. Extremities: Nontender, normal range of motion, no edema. Neuro: Cranial nerves grossly intact, no focal deficits. Psychiatric: Alert and oriented, judgment and insight intact, mood and affect normal. 'Scores and Scales' Signatures Electronically signed by : Shalini Champion MD; Mar 20 2021 9:44AM EST (Author) Normal [employer] Tobacco Screening.on 021 Last menstrual period start date 11Mar2021 -[place] [facility] Work Phone: Tobacco use status [facility] b) No M [facility] Work Phone: Tobacco Screening. b) No MP-[facility] Work Phone: Tobacco Screening. Adult [facility] [facility] Work Phone: VITAMIN D, 25-HYDROXYon 06-0 VITAMIN D, 25-HYDROXY 21 ng/mL Abnormal [facility] Comment on above: Result Comment: . DEFICIENCY: < 20 NG/ML INSUFFICIENCY: 20-29 NG/ML SUFFICIENCY: 30-100 NG/ML THIS ASSAY ACCURATELY QUANTIFIES THE SUM OF VITAMIN D3, 25-HYDROXY AND VIT D2,25-HYDROXY. Performed By: #### V TDOH #### [facility] [address] [address] Vitamin D 25-Hydroxyon 03-20 25-hydroxyvitamin D3 [Mass/Vol] 21 ng/mL Abnormal [facility] Work Phone: Comment on above: .DEFICIENCY: < 20 NG /MLINSUFFICIENCY: 20-29 NG/MLSUFFICIENCY: 30-100 NG/MLTHIS ASSAY ACCURATELY QUANTIFIES THE SUM OFVITAMIN D3, 25-HYDROXY AND VIT D2,25-HYDROXY. Office Visit ([facility])on 10-10-2020 Follow-up visit Chief Complaint An interactive audio and video telecommunication system which permits real time communications between the patient (at the originating site) and provider (at the distant site) was utilized to provide this telehealth service. Verbal consent was requested and obtained from [place] on this date, 10/10/2020 10:00 AM , for a telehealth visit. History of Present Illness 34 yo F with h/o GERD, obesity, vitamin D deficiency. Last visit about 2 1/2 months ago. Left arm pain, weakness, sense of spasm, twisting sensation, shaking 08/22/20 - EMG/NCT normal Since last visit, she is feeling about the same - arm pain is stable. Baseline aching. She states she thinks it might just be her posture - sometimes has symptoms in the other arm. No more spasm/twisting sensation No tingling. Weakness - not significant, symmetrical. Aching throughout the whole arm, worse in the upper arm. Active Problems Chronic headaches (784.0) (R51) Diarrhea (787.91) (R19.7) Fatigue (780.79) (R53.83) Added by Problem List Migration; 2013-10-09 GERD (gastroesophageal reflux disease) (530.81) (K21.9) Hiatal hernia (553.3) (K44.9) Insulin resistance (277.7) (E88.81) Labyrinthitis (386.30) (H83.09) Nausea (787.02) (R11.0) Need for influenza vaccination (V04.81) (Z23) Otalgia (388.70) (H92.09) Pain of left upper extremity (729.5) (M79.602) Palpitations (785.1) (R00.2) Paresthesias (782.0) (R20.2) Persistent cough (786.2) (R05) Vitamin D deficiency (268.9) (E55.9) Weakness of left arm (729.89) (R29.898) Weight gain, abnormal (783.1) (R63.5) Weight loss (783.21) (R63.4) Past Medical History History of Obesity (BMI 30-39.9) (278.00) (E66.9) History of Weight loss, unintentional (783.21) (R63.4) Surgical History History of Cholecystectomy History of Colonoscopy History of Ear Pressure Equalization Tube, Insertion History of Tonsillectomy With Adenoidectomy Family History Family history of Anxiety Family history of depression (V17.0) (Z81.8) Family history of hyperlipidemia (V18.19) (Z83.438) Family history of hypertension (V17.49) (Z82.49) No pertinent family history Social History Never a smoker No alcohol use No caffeine use Non-smoker (V49.89) (Z78.9) Allergies Contrast Media Ready-Box MISC Recorded By: Mirna Small; 04/20/2020 10:57:16 AM Current Meds Lo Loestrin Fe TABS; Therapy: (Recorded:[id number]) to Recorded Dispense: 0 Days ; #: Sufficient; Refill: 0; KHUSHI = N; Record; Last Updated By: Mirna Small; 07/27/2020 11:02:59 AM Physical Exam General: Well-developed, well-nourished, alert and in no acute distress. Neuro: Cranial nerves grossly intact, no focal deficits. Psychiatric: Alert and oriented, judgment and insight intact, mood and affect normal. Diagnoses/Problems Pain of left upper extremity (729.5) (M79.602) Orders Pain of left upper extremity Physical Therapy - General Referral Evaluation and Treatment Evaluate AND Treat Status: Hold For - Scheduling Requested for: [id number] Ordered;For: Pain of left upper extremity; Ordered By: Shalini Champion Performed: Due: 08Jan2021 Patient Discussion/Summary PT - per patient discretion Physical in six months. 'Scores and Scales' Signatures Electronically signed by : Shalini Champion MD; Oct 10 2020 5:31PM EST (Author) Normal [place] Office Visit ([facility])on 07-27-2020 Follow-up visit Chief Complaint Pt. here today for continued pain in left arm. Pt. denies having a temp of 100 degrees or greater, new or worsening cough, sob, chills, headache, diarrhea, sore throat, body aches, malaise, nausea/vomiting,runny nose congestion. HAve you had any symptoms? PT. denies coming into contact with persons with confirmed covid. gm n. History of Present Illness 34 yo F with h/o GERD, obesity, vitamin D deficiency, here for a followup on arm pain. She had a NPV here about 3 months ago[address] to Dr[address] Dawn - not sure if she will pursue the suggested testing Left arm pain, weakness no tingling (used to have this) sense of spasm in chest, neck. twisting sensation in the arm, shaking, weakness Active Problems Chronic headaches (784.0) (R51) Diarrhea (787.91) (R19.7) Fatigue (780.79) (R53.83) Added by Problem List Migration; 2013-10-09 GERD (gastroesophageal reflux disease) (530.81) (K21.9) Hiatal hernia (553.3) (K44.9) Insulin resistance (277.7) (E88.81) Labyrinthitis (386.30) (H83.09) Nausea (787.02) (R11.0) Otalgia (388.70) (H92.09) Palpitations (785.1) (R00.2) Paresthesias (782.0) (R20.2) Persistent cough (786.2) (R05) Vitamin D deficiency (268.9) (E55.9) Weight gain, abnormal (783.1) (R63.5) Weight loss (783.21) (R63.4) Past Medical History History of Obesity (BMI 30-39.9) (278.00) (E66.9) History of Weight loss, unintentional (783.21) (R63.4) Surgical History History of Cholecystectomy History of Colonoscopy History of Ear Pressure Equalization Tube, Insertion History of Tonsillectomy With Adenoidectomy Family History Family history of Anxiety Family history of depression (V17.0) (Z81.8) Family history of hyperlipidemia (V18.19) (Z83.438) Family history of hypertension (V17.49) (Z82.49) No pertinent family history Social History Never a smoker No alcohol use No caffeine use Non-smoker (V49.89) (Z78.9) Allergies Contrast Media Ready-Box MISC Recorded By: Mirna Small; 04/20/2020 10:57:16 AM Current Meds Omeprazole 40 MG Oral Capsule Delayed Release; TAKE ONE CAPSULE BY MOUTH EVERY DAY Requested for: [id number]; Last Rx:[id number] Ordered Rx By: Shalini Champion; Dispense: 30 Days ; #:30 Capsule; Refill: 2;For: GERD (gastroesophageal reflux disease); KHUSHI = N; Verified Transmission to [address]; Last Updated By: Sara AlejandreSoThree; 07/27/2020 11:04:26 AM Laura Christie TABS; Therapy: (Recorded:27Jul2020) to Recorded Dispense: 0 Days ; #: Sufficient; Refill: 0; KHUSHI = N; Record; Last Updated By: Mirna Small; 07/27/2020 11:02:59 AM Vitals Vital Signs Recorded: 27Jul2020 11:04AM Emtlqzgogwt14.4 F, Oral Heart Rate94 Ohyjypoz919, LUE, Sitting Tonoklwad45, LUE, Sitting Blood Pressure Cuff SizeAdult Xztpgm416 lb 9 oz BMI Pmifixrgie29.79 BSA Calculated1.93 O2 Evbdexwvug75, RA Physical Exam General: Well-developed, well-nourished, alert and in no acute distress. HEENT: Pupils equal, round, and reactive to light. No conjunctival injection. Oropharynx clear and moist without exudates or erythema. Neck supple. No lymphadenopathy or thyromegaly. Cardiac: Regular rate and rhythm, no murmurs, normal S1/S2. Peripheral pulses intact. Pulmonary: Clear to auscultation bilaterally. No wheezes, rales, or rhonchi. Extremities: Nontender, normal range of motion, no edema. Neuro: Alert and oriented. Cranial nerves II-XII intact. DTRs 2+ in upper and lower extremities bilaterally. 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 Sensation normal. Lsaesg-bv-piiz intact. Psychiatric: Alert and oriented, judgment and insight intact, mood and affect normal. Procedure Pt was seen today by the PCP, per PcP order, gave the FlU vaccine IM in the Right Deltoid. No blood upon aspiration. pt declined the 15 min eval wait time. Pt was released. cm Diagnoses/Problems Pain of left upper extremity (729.5) (M79.602) Weakness of left arm (729.89) (R29.898) Need for influenza vaccination (V04.81) (Z23) Orders Need for influenza vaccination Administered: Fluarix Quadrivalent 0.5 ML Intramuscular Suspension Prefilled Syringe For: Need for influenza vaccination; Ordered By:Shalini Champion; Effective Date:27Jul2020; Administered by: Melissa Baker MA: 07/27/2020 12:48:00 PM; Last Updated By: Melissa Baker; 07/27/2020 12:48:52 PM Pain of left upper extremity, Weakness of left arm EMG and Nerve Conduction; Status:Hold For - Scheduling; Requested for:27Jul2020; Perform:[facility]; Due:25Oct2020;Ordered; For:Pain of left upper extremity, Weakness of left arm; Ordered By:Shalini Champion; Electrodiagnostic Physician to determine whether Neuromuscular Ultrasound to be performed for optimal study : Yes Electrodiagnostic Physician to determine optimal study : Yes Patient is unable to stand or is >300lbs? : No Additional Clinical Information: : r/o thoracic out (more content not included)... Normal [facility] Initial Visit (Gastroenterol ogy)on 06-08-2020 Initial Visit (Gastroenterology) Diagnoses/Problems Assessed GERD (gastroesophageal reflux disease) (530.81) (K21.9) Weight loss (783.21) (R63.4) Hiatal hernia (553.3) (K44.9) Provider Impressions Intermittent chest pain, weight loss, as well as an excessive burping. It does not seem that she has chronic GERD especially with all the test before. Think that she has any major GI issues going on I think I told her we can do an endoscopy with prolonged pH study for 96-hour. She is agreeable to plan. Chief Complaint New patient visit for Burping and chest pain after eating. Referred by Dr. Shalini Champion. History of Present IllnessThis is a 28-qmpw-hnc-year-old woman referred to me for evaluation of noncardiac chest pain and possible acid reflux. Patient has had problems with her GI symptoms for a few years now. This started mostly as abdominal pain and she said that she had all testing done including endoscopy, colonoscopy, esophageal manometry, as well as esophageal pH testing all of which were nonconclusive did not show any major abnormalities these. She finally had a gallbladder ejection fraction test and was told that that was the problem and therefore underwent cholecystectomy and since then has been abdominal pain or any other symptoms. Comes back today for concern with intermittent chest pain and excessive burping and is concerned that this is related to her gallbladder surgery. Denies any diarrhea. Does have some she is a non-smoker nonalcoholic. She does have a lot of anxiety and often thinks that is making her symptoms worse. Has been on PPI with no improvement of her symptoms. Review of Systems Constitutional: no fever, no chills, not feeling tired and no recent weight loss. Eyes: no yellow sclera/jaundice. ENT: no lymphadenopathy. Cardiovascular: no shortness of breath and no chest pain. Respiratory: no cough. Gastrointestinal: as noted in HPI. Musculoskeletal: no joint swelling. Integumentary: no rashes, no skin lesions and was no jaundiced. Neurological: no headache. Psychiatric: no anxiety and no depression. Hematologic/Lymphatic: no tendency for easy bleeding and no tendency for easy bruising. All other systems have been reviewed and are negative for complaint. Active Problems Problems Chronic headaches (784.0) (R51) Diarrhea (787.91) (R19.7) Fatigue (780.79) (R53.83) Added by Problem List Migration; 2013-10-09 GERD (gastroesophageal reflux disease) (530.81) (K21.9) Hiatal hernia (553.3) (K44.9) Insulin resistance (277.7) (E88.81) Labyrinthitis (386.30) (H83.09) Nausea (787.02) (R11.0) Otalgia (388.70) (H92.09) Palpitations (785.1) (R00.2) Paresthesias (782.0) (R20.2) Persistent cough (786.2) (R05) Vitamin D deficiency (268.9) (E55.9) Weight gain, abnormal (783.1) (R63.5) Weight loss (783.21) (R63.4) Past Medical History Problems History of Obesity (BMI 30-39.9) (278.00) (E66.9) Resolved Date: 20 Apr 2020 History of Weight loss, unintentional (783.21) (R63.4) Resolved Date: 01 Oct 2016 Surgical History Problems History of Cholecystectomy History of Colonoscopy History of Ear Pressure Equalization Tube, Insertion History of Tonsillectomy With Adenoidectomy Family History Mother Family history of Anxiety Family history of depression (V17.0) (Z81.8) Family history of hyperlipidemia (V18.19) (Z83.438) Family history of hypertension (V17.49) (Z82.49) Father No pertinent family history Social History Problems Never a smoker No alcohol use No caffeine use Non-smoker (V49.89) (Z78.9) Allergies Medication Contrast Media Ready-Box MISC Recorded By: Mirna Small; 04/20/2020 10:57:16 AM Current Meds Medication NameInstruction Omeprazole 40 MG Oral Capsule Delayed ReleaseTAKE ONE CAPSULE BY MOUTH EVERY DAY Vitals Vital Signs Recorded: [id number] 09:01AM Rbbudqvbbub60.5 F Heart Rate82 Oeqzncjmbbf73 Hooafjku888, LUE, Sitting Qseeqfjgz81, LUE, Sitting Blood Pressure Cuff SizeAdult Height5 ft 6 in Golxyr709 lb BMI Tipgejdcpk17.54 BSA Calculated1.93 O2 Vpmppewspo584, RA Pain Scale0 Physical Exam Constitutional General appearance: In no acute distress . Eyes Anicteric Sclerae . Ears, Nose, Mouth, and Throat Oropharynx without lesions. Neck Supple, no lymphadenopathy. Pulmonary Auscultation of lungs: Clear. Cardiovascular Auscultation of heart: RRR without murmur. Examination of extremities for edema: Normal. Abdomen Soft, non-tender. Bowel sounds normal. No hepatomegaly or splenomegaly. Skin No specific lesions, no spider angiomata or palmar erythema. Psychiatric patient alert. judgement was appropriate. insight appropriate. Results/Data I reviewed all her GI testing done which included an endoscopy and colonoscopy in 2013, a pH test done in 2014 Which showed no evidence of acid reflux with poor symptom correlation. Esophageal manometry done in 2015 showed reflux axis with small breaks Signature (more content not included)... Normal [email or web address] CBC AND DIFFERENTIALon 04-21 % AUTOMATED IMMATURE GRAN 0.5 % Normal 0.0 - 0.9 [facility] Comment on above: Result Comment: Teresa ture Granulocyte Count (IG) includes promyelocytes, myelocytes and metamyelocytes but does not include bands. Percent differential counts (%) should be interpreted in the context of the absolute cell counts (cells/L). Performed By: #### C BCDF #### [facility] [address] [place] [address] Basophils (Bld) [#/Vol] 0.04 10*3/uL Normal 0.00 - 0.1 0 [facility] Comment on above: Performed By: #### C BCDF #### [facility] [address] [place] [address] Basophils/100 WBC (Bld) 0.7 % Normal 0.0 - 2.0 [facility] Comment on above: Performed By: #### C BCDF #### [facility] [address] [place] [address] Eosinophils (Bld) [#/Vol] 0.05 10*3/uL Normal 0.00 - 0.70 [facility] Comment on above: Performed By: #### C BCDF #### [facility] [address] [place] [address] Eosinophils/100 WBC (Bld) 0.9 % Normal 0.0 - 6.0 [facility] Comment on above: Performed By: #### C BCDF #### [facility] [address] [place] [address] Erythrocyte distribution width (RBC) [Ratio] 11.9 % Normal 11.5 - 14.5 [facility] Comment on above: Performed By: #### C BCDF #### [facility] [address] [place] [address] Hematocrit (Bld) [Volume fraction] 41.1 % Normal 36.0 - 46.0 [facility] Comment on above: Performed By: #### C BCDF #### [facility] [address] [place] [address] Hemoglobin (Bld) [Mass/Vol] 14.1 g/dL Normal 12.0 - 16.0 [facility] Comment on above: Performed By: #### C BCDF #### [facility] [address] [place] [address] Lymphocytes (Bld) [#/Vol] 2.10 10*3/uL Normal 1.20 - 4.80 [facility] Comment on above: Performed By: #### C BCDF #### [facility] [address] [place] [address] Lymphocytes/100 WBC (Bld) 38.3 % Normal 13.0 - 44.0 [facility] Comment on above: Performed By: #### C BCDF #### [facility] [address] [place] [address] MCHC (RBC) [Mass/Vol] 34.3 g/dL Normal 32.0 - 36.0 [facility] Comment on above: Performed By: #### C BCDF #### [facility] [address] [place] [address] MCV (RBC) [Entitic vol] 93 fL Normal 80 - 100 [facility] Comment on above: Performed By: #### C BCDF #### [facility] [address] [place] [address] Monocytes (Bld) [#/Vol] 0.44 10*3/uL Normal 0.10 - 1.0 0 [facility] Comment on above: Performed By: #### C BCDF #### [facility] [address] [place] [address] Monocytes/100 WBC (Bld) 8.0 % Normal 2.0 - 10.0 [facility] Comment on above: Performed By: #### C BCDF #### [facility] [address] [place] [address] Neutrophils (Bld) [#/Vol] 2.83 10*3/uL Normal 1.20 - 7.70 [facility] Comment on above: Performed By: #### C BCDF #### [facility] [address] [place] [address] Neutrophils/100 WBC (Bld) 51.6 % Normal 40.0 - 80.0 [facility] Comment on above: Performed By: #### C BCDF #### [facility] [address] [place] [address] NUCLEATED RBC 0.0 /100 WBC Normal 0.0-0.0 [facility] Comment on above: Performed By: #### C BCDF #### [facility] [address] [place] [address] Platelets (Bld) [#/Vol] 325 10*3/uL Normal 150 - 450 [facility] Comment on above: Performed By: #### C BCDF #### [facility] [address] [place] [address] RBC 4.43 x10E12/L Normal 4.00 - 5.20 [facility] Comment on above: Performed By: #### C BCDF #### [facility] [address] [place] [address] WBC (Bld) [#/Vol] 5.5 10*3/uL Normal 4.4 - 11.3 [facility] Comment on above: Performed By: #### C BCDF #### [facility] [address] [place] [address] COMPREHENSIVE PANELon 2019 ALT [Catalytic activity/Vol] 10 U/L Normal 7 - 45 [facility] Comment on above: Result Comment: Kristi ents treated with Sulfasalazine may generate falsely decreased results for ALT. Performed By: #### C MP #### [facility] [address] [place] [address] Albumin [Mass/Vol] 4.6 g/dL Normal 3.4 - 5.0 [facility] Comment on above: Performed By: #### C MP #### [facility] [address] [place] [address] ALP [Catalytic activity/Vol] 47 U/L Normal 33 - 110 [facility] Comment on above: Performed By: #### C MP #### [facility] [address] [place] [address] Anion gap [Moles/Vol] 11 mmol/L Normal 10 - 20 [facility] Comment on above: Performed By: #### C MP #### [facility] [address] [place] [address] AST [Catalytic activity/Vol] 12 U/L Normal 9 - 39 [facility] Comment on above: Performed By: #### C MP #### [facility] [address] [place] [address] Bilirubin [Mass/Vol] 0.5 mg/dL Normal 0.0 - 1.2 [facility] Comment on above: Performed By: #### C MP #### [facility] [address] [place] [address] Calcium [Mass/Vol] 9.6 mg/dL Normal 8.6 - 10.6 [facility] Comment on above: Performed By: #### C MP #### [facility] [address] [place] [address] Chloride [Moles/Vol] 107 mmol/L Normal 98 - 107 [facility] Comment on above: Performed By: #### C MP #### [facility] [address] [place] [address] Creatinine [Mass/Vol] 0.62 mg/dL Normal 0.50 - 1.05 [facility] Comment on above: Performed By: #### C MP #### [facility] [address] [place] [address] GFR- AM. >60 Normal >60 [facility] Comment on above: Result Comment: CALC ULATIONS OF ESTIMATED GFR ARE PERFORMED USING THE MDRD STUDY EQUATION FOR THE IDMS-TRACEABLE CREATININE METHODS. CLIN CHEM 2007;53:766-72 Performed By: #### C MP #### [facility] [address] [place] [address] GFR-NON AM. >60 Normal >60 [facility] Comment on above: Performed By: #### C MP #### [facility] [address] [place] [address] Glucose [Mass/Vol] 86 mg/dL Normal 74 - 99 [facility] Comment on above: Performed By: #### C MP #### [facility] [address] [place] [address] HCO3 (Bld) [Moles/Vol] 28 mmol/L Normal 21 - 32 [facility] Comment on above: Performed By: #### C MP #### [facility] [address] [place] [address] Potassium [Moles/Vol] 4.2 mmol/L Normal 3.5 - 5.3 [facility] Comment on above: Performed By: #### C MP #### [facility] [address] [place] [address] Protein [Mass/Vol] 6.9 g/dL Normal 6.4 - 8.2 [facility] Comment on above: Performed By: #### C MP #### [facility] [address] [place] [address] Sodium [Moles/Vol] 142 mmol/L Normal 136 - 145 [facility] Comment on above: Performed By: #### C MP #### [facility] [address] [place] [address] Urea nitrogen [Mass/Vol] 11 mg/dL Normal 6 - 23 [facility] Comment on above: Performed By: #### C MP #### [facility] [address] [place] [address] HEMOGLOBIN A1Con 04-21-2020 Glucose [Mass/Vol] 97 mg/dL Normal [facility] Comment on above: Performed By: #### H BA1E #### [facility] [address] [place] [address] HbA1c (Bld) [Mass fraction] 5.0 % Normal [facility] Comment on above: Result Comment: Diag nosis of Diabetes-Adults Non-Diabetic: < or = 5.6% Increased risk for developing diabetes: 5.7-6.4% Diagnostic of diabetes: > or = 6.5% . Monitoring of Diabetes Age (y) Therapeutic Goal (%) Adults: >18 <7.0 Pediatrics: 13-18 <7.5 7-12 <8.0 0- 6 7.5-8.5 [place] [employer]. Diabetes Care 33(S1), Oct 2009. Performed By: #### H BA1E #### [facility] [address] [place] [address] HIV ANTIGEN/ANTIBODY SCREENo n 04-21-2020 HIV AG/AB SCREEN Non-Reactive Normal NONREACTIVE [facility] Comment on above: Result Comment: HIV Ag/Ab screen is performed using the Siemens ZigabidllMapSense HIV Ag/Ab Combo assay which detects the presence of HIV p24 antigen as well as antibodies to HIV-1 (Group M and O) and HIV-2. Performed By: #### H IV #### [facility] [address] [place] [address] LIPID PANEL (CORONARY RISK 2 )on 04-21-2020 Cholesterol [Mass/Vol] 148 mg/dL Normal 0 - 199 [facility] Comment on above: Result Comment: . AGE DESIRABLE BORDERLINE HIGH HIGH 0-19 Y 0 - 169 170 - 199 >/= 200 20-24 Y 0 - 189 190 - 224 >/= 225 >24 Y 0 - 199 200 - 239 >/= 240 All ranges are based on fasting samples. Specific therapeutic targets will vary based on patient-specific cardiac risk. . Pediatric guidelines reference:Pediatrics 2011, 128(S5). Adult guidelines reference: NCEP ATPIII Guidelines, NAIF 2001, 258:2486-97 . Venipuncture immediately after or during the administration of Metamizole may lead to falsely low results. Testing should be performed immediately prior to Metamizole dosing. Performed By: #### L IPID #### [facility] [address] [place] [address] Cholesterol in HDL [Mass/Vol] 42.4 mg/dL Normal [facility] Comment on above: Result Comment: . AGE VERY LOW LOW NORMAL HIGH 0-19 Y < 35 < 40 40-45 ---- 20-24 Y ---- < 40 >45 ---- >24 Y ---- < 40 40-60 >60 . Performed By: #### L IPID #### [facility] [address] [place] [address] Cholesterol in LDL [Mass/Vol] 93 mg/dL Normal 0 - 99 [facility] Comment on above: Result Comment: . NEAR BORD AGE DESIRABLE OPTIMAL HIGH HIGH VERY HIGH 0-19 Y 0 - 109 --- 110-129 >/= 130 ---- 20-24 Y 0 - 119 --- 120-159 >/= 160 ---- >24 Y 0 - 99 100-129 130-159 160-189 >/=190 . Performed By: #### L IPID #### [facility] [address] [place] [address] Cholesterol in VLDL [Mass/Vol] 12 mg/dL Normal 0 - 40 [facility] Comment on above: Performed By: #### L IPID #### [facility] [address] [place] [address] Cholesterol.total/Yuni sterol in HDL [Mass ratio] 3.5 {ratio} Normal [facility] Comment on above: Result Comment: REF VALUES DESIRABLE < 3.4 HIGH RISK > 5.0 Performed By: #### L IPID #### [facility] [address] [place] [address] Triglyceride [Mass/Vol] 62 mg/dL Normal 0 - 149 [facility] Comment on above: Result Comment: . AGE DESIRABLE BORDERLINE HIGH HIGH VERY HIGH 0 D-90 D 19 - 174 ---- ---- ---- 91 D- 9 Y 0 - 74 75 - 99 >/= 100 ---- 10-19 Y 0 - 89 90 - 129 >/= 130 ---- 20-24 Y 0 - 114 115 - 149 >/= 150 ---- >24 Y 0 - 149 150 - 199 200- 499 >/= 500 . Venipuncture immediately after or during the administration of Metamizole may lead to falsely low results. Testing should be performed immediately prior to Metamizole dosing. Performed By: #### L IPID #### [facility] [address] [place] [address] TSH WITH REFLEX TO FREE T4 I F ABNORMALon 04-21-2020 TSH Qn 1.81 m[IU]/L Normal 0.44 - 3.98 [facility] Comment on above: Result Comment: TSH testing is performed using different testing methodology at [facility] than at other [facility]. Direct result comparisons should only be made within the same method. Performed By: #### T HYDS #### [facility] [address] [place] [address] VITAMIN D, 25-HYDROXYon VITAMIN D, 25-HYDROXY 27 ng/mL Abnormal [facility] Comment on above: Result Comment: . DEFICIENCY: < 20 NG/ML INSUFFICIENCY: 20-29 NG/ML SUFFICIENCY: 30-100 NG/ML THIS ASSAY ACCURATELY QUANTIFIES THE SUM OF VITAMIN D3, 25-HYDROXY AND VIT D2,25-HYDROXY. { Performed By: #### V TDOH #### [facility] [address] [place] [address] Complete Blood Count + Diffe rentialon 04-20-2020 Basophils (Bld) [#/Vol] 0.04 {x10E9/L} See Belo w [facility] Work Phone: Comment on above: Reference Range: 0.0 0 - 0.10 Basophils/100 WBC (Bld) 0.7 % 0.0 - 2.0 M [facility] Work Phone: Eosinophils (Bld) [#/Vol] 0.05 {x10E9/L} See Below [facility] Work Phone: Comment on above: Reference Range: 0.0 0 - 0.70 Eosinophils/100 WBC (Bld) 0.9 % 0.0 - 6.0 [facility] Work Phone: Erythrocyte distribution width (RBC) [Ratio] 11.9 % See Below [facility] Work Phone: Comment on above: Reference Range: 11. 5 - 14.5 Hematocrit (Bld) [Volume fraction] 41.1 % See Below [facility] Work Phone: Comment on above: Reference Range: 36. 0 - 46.0 Hemoglobin (Bld) [Mass/Vol] 14.1 g/dL See Below [facility] Work Phone: Comment on above: Reference Range: 12. 0 - 16.0 Lymphocytes (Bld) [#/Vol] 2.10 {x10E9/L} See Below [facility] Work Phone: Comment on above: Reference Range: 1.2 0 - 4.80 Lymphocytes/100 WBC (Bld) 38.3 % See Below [facility] Work Phone: Comment on above: Reference Range: 13. 0 - 44.0 MCHC (RBC) [Mass/Vol] 34.3 g/dL See Below [facility] Work Phone: Comment on above: Reference Range: 32. 0 - 36.0 MCV (RBC) [Entitic vol] 93 fL 80 - 100 M [facility] Work Phone: Monocytes (Bld) [#/Vol] 0.44 {x10E9/L} See Belo w [facility] Work Phone: Comment on above: Reference Range: 0.1 0 - 1.00 Monocytes/100 WBC (Bld) 8.0 % 2.0 - 10.0 M [facility] Work Phone: Neutrophils (Bld) [#/Vol] 2.83 {x10E9/L} See Below [facility] Work Phone: Comment on above: Reference Range: 1.2 0 - 7.70 Neutrophils/100 WBC (Bld) 51.6 % See Below [facility] Work Phone: Comment on above: Reference Range: 40. 0 - 80.0 Platelets (Bld) [#/Vol] 325 {x10E9/L} 150 - 450 [facility] Work Phone: RBC (Bld) [#/Vol] 4.43 {x10E12/L} See Below [facility] Work Phone: Comment on above: Reference Range: 4.0 0 - 5.20 WBC (Bld) [#/Vol] 0.0 {/100_WBC} 0.0-0.0 [facility] Work Phone: WBC (Bld) [#/Vol] 5.5 {x10E9/L} 4.4 - 11.3 [facility] Work Phone: Complete Blood Count + Differential 0.5 % 0.0 - 0.9 [facility] Work Phone: Comment on above: Immature Granulocyte Count (IG) includes promyelocytes, myelocytes and metamyelocytes but does not include bands. Percent differential counts (%) should be interpreted in the context of the absolute cell counts (cells/L). HIV Antigen/Antibody Screeno n 04-20-2020 HIV Antigen/Antibody Screen NONREACTIVE See Below [facility] Work Phone: Comment on above: SOURCE: Reference Ra nge: NONREACTIVE HIV Ag/Ab screen is performed using the Siemens ZigabidllMapSense HIV Ag/Ab Combo assay which detects the presence of HIV p24 antigen as well as antibodies to HIV-1 (Group M and O) and HIV-2. Hemoglobin A1Con 04-20-2020 HbA1c (Bld) [Mass fraction] 97 {MG/DL} [facility] Work Phone: HbA1c (Bld) [Mass fraction] 5.0 % [facility] Work Phone: Comment on above: Diagnosis of Diabete s-Adults Non-Diabetic: < or = 5.6% Increased risk for developing diabetes: 5.7-6.4% Diagnostic of diabetes: > or = 6.5%. Monitoring of Diabetes Age (y) Therapeutic Goal (%) Adults: >18 <7.0 Pediatrics: 13-18 <7.5 7-12 <8.0 0- 6 7.5-8.5 [employer]. Diabetes Care 33(S1), Oct 2009. Lipid Panelon 04-20-2020 Cholesterol [Mass/Vol] 148 mg/dL 0 - 199 [facility] Work Phone: Comment on above: . AGE DESIRABLE BORD LETI HIGH HIGH 0-19 Y 0 - 169 170 - 199 >/= 200 20-24 Y 0 - 189 190 - 224 >/= 225 >24 Y 0 - 199 200 - 239 >/= 240 All ranges are based on fasting samples. Specific therapeutic targets will vary based on patient-specific cardiac risk.. Pediatric guidelines reference:Pediatrics 2011, 128(S5). Adult guidelines reference: NCEP ATPIII Guidelines, NAIF 2001, 258:2486-97. Venipuncture immediately after or during the administration of Metamizole may lead to falsely low results. Testing should be performed immediately prior to Metamizole dosing. Cholesterol in HDL [Mass/Vol] 42.4 mg/dL [facility] Work Phone: Comment on above: . AGE VERY LOW LOW N ORMAL HIGH 0-19 Y < 35 < 40 40-45 ---- 20-24 Y ---- < 40 >45 ---- >24 Y ---- < 40 40-60 >60. Cholesterol in LDL [Mass/Vol] 93 mg/dL 0 - 99 [facility] Work Phone: Comment on above: . NEAR BORD AGE MAINE RABLE OPTIMAL HIGH HIGH VERY HIGH 0-19 Y 0 - 109 --- 110-129 >/= 130 ---- 20-24 Y 0 - 119 --- 120-159 >/= 160 ---- >24 Y 0 - 99 100-129 130-159 160-189 >/=190. Cholesterol.total/Yuni sterol in HDL [Mass ratio] 3.5 {ratio} [facility] Work Phone: Comment on above: REF VALUESDESIRABLE < 3.4HIGH RISK > 5.0 Triglyceride [Mass/Vol] 62 mg/dL 0 - 149 [facility] Work Phone: Comment on above: . AGE DESIRABLE BORD LETI HIGH HIGH VERY HIGH 0 D-90 D 19 - 174 ---- ---- ----91 D- 9 Y 0 - 74 75 - 99 >/= 100 ---- 10-19 Y 0 - 89 90 - 129 >/= 130 ---- 20-24 Y 0 - 114 115 - 149 >/= 150 ---- >24 Y 0 - 149 150 - 199 200- 499 >/= 500. Venipuncture immediately after or during the administration of Metamizole may lead to falsely low results. Testing should be performed immediately prior to Metamizole dosing. Lipid Panel 12 mg/dL 0 - 40 [facility] Work Phone: Metabolic Panelon 04-20-2020 ALP [Catalytic activity/Vol] 47 U/L 33 - 110 [facility] Work Phone: Anion gap [Moles/Vol] 11 mmol/L 10 - 20 [facility] Work Phone: Bilirubin [Mass/Vol] 0.5 mg/dL 0.0 - 1.2 [facility] Work Phone: Calcium [Mass/Vol] 9.6 mg/dL 8.6 - 10.6 [facility] Work Phone: Chloride [Moles/Vol] 107 mmol/L 98 - 107 [facility] Work Phone: CO2 [Moles/Vol] 28 mmol/L 21 - 32 [facility] Work Phone: Creatinine [Mass/Vol] 0.62 mg/dL See Below [facility] Work Phone: Comment on above: Reference Range: 0.5 0 - 1.05 Glucose [Mass/Vol] 86 mg/dL 74 - 99 [facility] Work Phone: Potassium [Moles/Vol] 4.2 mmol/L 3.5 - 5.3 [facility] Work Phone: Protein [Mass/Vol] 6.9 g/dL 6.4 - 8.2 [facility] Work Phone: Sodium [Moles/Vol] 142 mmol/L 136 - 145 [facility] Work Phone: Urea nitrogen [Mass/Vol] 11 mg/dL 6 - 23 [facility] Work Phone: Office Visit (Family Medicalicia lópez)on 04-20-2020 Follow-up visit Chief Complaint PT. here for GI issues, reflux, headaches, quick weight loss.gm. History of Present Illness 34 yo F with h/o GERD, obesity, vitamin D deficiency, hiatal hernia, here as a new patient for GI problems, reflux, headaches, and weight loss. 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 Lives in [place]. Was nursing until about 5 months ago. MRIs of brain and cervical spine were done with Jc montiel in upper body family history of MS MRI was negative tingling got better GI symptoms have been intermittent, worse recently. Had a vomiting/diarrheal illness this spring and got better. Saw Jc Kerr Last week, c/o pain across chest and radiating down the left arm. EKG was done. Chills after eating sometimes burps with it, sometimes feels like she tastes blood They prescribed omeprazole. Used to have gas/bloating but that doesn't happen any longer. Still has belching. No vomiting. Intermittent diarrhea, not recently. More constipation recently. Drinks water only but not enough. No visible blood in stool. She thinks her arm symptoms might be worse on omeprazole but not sure - only on it for about one week. EGD and colonoscopy were done about 5 years ago. Gall bladder U/S and HIDA led to cholecystectomy in January 2015 - this helped her for a while. nasolaryngoscopy known hiatal hernia Lost 15 lb between late December after her GI illness and about 2-3 weeks ago. admits she was very anxious during this time Saw 3 different GI specialists. Amitriptyline was prescribed but she did not take it. hasn't seen one for about 5 years She gets nasal congestion, hot flashes prior to periods which have still been occurring. IUD since 6 weeks after baby. Doesn't menstruate but still feels like she's cycling. Headaches - bandlike, frontal, sometimes occipital Was taking Tylenol - helps a little no colors/lights some nausea, no vomiting no photophonophobia Heart fluttering sensation about 9 months ago. ED testing was negative. Still has occasional fluttering. Occasionally has associated pain and sometimes burping. Sometimes gets dizzy with the flutters, which are also sometimes associated with orthostatic changes. saw tombstone erector in the past at [facility] main - about [phone] wore an event monitor for 30 days had a stress test Has tried eliminating dairy without a change. Doesn't eat much gluten anyway. All other systems have been reviewed and are negative for complaint. Review of Systems Musculoskeletal: no arthralgias, no localized joint pain and no limb swelling. Integumentary: no new skin lesions and no rashes. Active Problems Diarrhea (787.91) (R19.7) Fatigue (780.79) (R53.83) Added by Problem List Migration; 2013-10-09 GERD (gastroesophageal reflux disease) (530.81) (K21.9) Hiatal hernia (553.3) (K44.9) Insulin resistance (277.7) (E88.81) Labyrinthitis (386.30) (H83.09) Nausea (787.02) (R11.0) Otalgia (388.70) (H92.09) Palpitations (785.1) (R00.2) Paresthesias (782.0) (R20.2) Persistent cough (786.2) (R05) Vitamin D deficiency (268.9) (E55.9) Weight gain, abnormal (783.1) (R63.5) Past Medical History History of Obesity (BMI 30-39.9) (278.00) (E66.9) History of Weight loss, unintentional (783.21) (R63.4) Surgical History History of Cholecystectomy History of Colonoscopy History of Ear Pressure Equalization Tube, Insertion History of Tonsillectomy With Adenoidectomy Family History Family history of Anxiety Family history of depression (V17.0) (Z81.8) Family history of hyperlipidemia (V18.19) (Z83.438) Family history of hypertension (V17.49) (Z82.49) No pertinent family history Social History Never a smoker No alcohol use No caffeine use Non-smoker (V49.89) (Z78.9) Allergies Contrast Media Ready-Box MISC Recorded By: Mirna Small; 04/20/2020 10:57:16 AM Current Meds Omeprazole 40 MG Oral Capsule Delayed Release; Therapy: (Recorded:[id number]) to Recorded Dispense: 0 Days ; #: Sufficient; Refill: 0; KHUSHI = N; Record; Last Updated By: Mirna Small; 04/20/2020 10:52:23 AM Vitals Vital Signs Recorded: 20Apr2020 10:46AM Nbrobsawwpa64.2 F, Oral Heart Rate92 Gjcetnyqhis10 Faypkekm041, LUE, Sitting Clzjrbrat20, LUE, Sitting Blood Pressure Cuff SizeAdult Height5 ft 6 in Pkupnx571 lb 6 oz BMI Fcyoxldevx29.44 BSA Calculated1.92 O2 Dwuquzbdpx86, RA Physical Exam General: Well-developed, well-nourished, alert and in no acute distress. HEENT: Pupils equal, round, and reactive to light. No conjunctival injection. Oropharynx clear and moist without exudates or erythema. Neck supple. No lymphadenopathy or thyromegaly. Cardiac: Regular rate and rhythm, no murmurs, normal S1/S2. Peripheral pulses intact. Pulmonary: Clear to auscultation bilaterally. No wheezes, rales, or rhonchi. Abdomen: Normoactive bowel sounds. Soft, nontender, nondistended. No masses palpated. Extremities: Nontender (more content not included)... Normal [employer] Otheron 04-20-2020 Albumin BCP dye [Mass/Vol] 4.6 g/dL 3.4 - 5.0 [facility] Work Phone: ALT With P-5'-P [Catalytic activity/Vol] 10 U/L 7 - 45 [facility] Work Phone: Comment on above: Patients treated wit h Sulfasalazine may generate falsely decreased results for ALT. AST With P-5'-P [Catalytic activity/Vol] 12 U/L 9 - 39 [facility] Work Phone: >60 >60 [facility] Work Phone: Comment on above: CALCULATIONS OF YANIQUE MATED GFR ARE PERFORMED USING THE MDRD STUDY EQUATION FOR THE IDMS-TRACEABLE CREATININE METHODS. CLIN CHEM 2007;53:766-72 Thyroidon 04-20-2020 TSH Qn 1.81 {mIU/L} See Below [facility] Work Phone: Comment on above: SOURCE: Reference Ra nge: 0.44 - 3.98 TSH testing is performed using different testing methodology at [facility] than at other [facility]. Direct result comparisons should only be made within the same method. VITAMIN D, 25-HYDROXYon Lab Specimen Source Normal [facility] Comment on above: Performed By: #### V TDOH #### [facility] [address] [place] [address] Performed By: #### T HYDS #### [facility] [address] [place] [address] Performed By: #### H IV #### [facility] [address] [place] [id number] Vitamin D 25-Hydroxyon 04-20 Calcidiol [Mass/Vol] 27 ng/mL Abnormal [facility] Work Phone: Comment on above: SOURCE: .DEFICIENCY: < 20 NG/MLINSUFFICIENCY: 20-29 NG/MLSUFFICIENCY: 30-100 NG/MLTHIS ASSAY ACCURATELY QUANTIFIES THE SUM OFVITAMIN D3, 25-HYDROXY AND VIT D2,25-HYDROXY.{ CR Ankle 3+ Views Righton CR Ankle 3+ Views Right Patient Name: EDU MOHAMUD Diagnostic Radiology Exam Date/Time 04/12/2020 18:00:51 EDT Exam CR Ankle 3+ Views Right Ordering Physician DO BROCK PAUL E. Accession Number [id number] CPT4 Codes 27262 () Reason For Exam . Report RIGHT ANKLE CLINICAL INDICATION: Pain after trauma AP, lateral, and oblique plain film views of the right ankle were obtained. COMPARISON: None. FINDINGS: No fracture or dislocation of the right ankle is identified. The ankle mortise is intact. Mild lateral soft tissue swelling is noted. There is no radiopaque foreign body. IMPRESSION: No fracture or dislocation of the right ankle is identified. Mild lateral soft tissue swelling. Report Dictated on Workstation: [facility] Final Dictating Physician: MD FARIAS JONATHAN R Signed Date and Time: 04/13/2020 1:00 am Signed by: MD FARIAS JONATHAN R Transcribed Date and Time: 04/13/2020 1:01 Normal [facility] MRI BRAIN W WO CONTRASTon Patient Name: EDU GARDUNO ---MRI--- Exam Date/Time 08/11/2019 14:14:35 EDT Exam MRI Brain w/ + w/o Contrast Ordering Physician DO MEJIA EUGENE F. Accession Number [id number] CPT4 Codes 28622 () Reason For Exam eval extremity paresthesias Report Clinical indications: Recent onset of headaches, facial tingling and left upper extremity tingling. FINDINGS: Multiplanar, multisequence imaging of the brain was performed with and without gadolinium (17 mL MultiHance). There are no prior exams for comparison. Diffusion-weighted pulse sequences show no evidence of focal signal abnormality suggestive of underlying acute or subacute ischemia. There is no evidence of mass effect, midline shift or hemorrhage. There are no unusual extra axial fluid collections. No evidence of focal signal abnormality is identified in the hemispheric parenchyma. The contents of the posterior fossa are also normal in appearance. The ventricular and cisternal spaces are of normal size and configuration for patient of this age. Midline structures including the corpus callosum, pituitary fossa and cerebellar vermis appear unremarkable. Flow voids of the distal internal carotid arteries, vertebral arteries and basilar artery are grossly within normal limits. There is no evidence of abnormal parenchymal, leptomeningeal or dural following gadolinium administration. The orbital contents, mastoid air cells and paranasal sinuses appear free of significant focal signal abnormality.>] Impression: Unremarkable MRI of the brain. Report Dictated on --- Final --- Dictating Physician: MD BAÑUELOS RUSSELL Signed Date and Time: 08/11/2019 2:21 pm Signed by: MD BAÑUELOS RUSSELL Transcribed Date and Time: 08/11/2019 2:22 [place], [place] [facility] Incoming Radiology Results From [facility] - 08/11/2019 2:22 PM EDT Patient Name: EDU WASHINGTON ---MRI--- Exam Date/Time 08/11/2019 14:14:35 EDT Exam MRI Brain w/ + w/o Contrast Ordering Physician DO MEJIA EUGENE F. Accession Number [id number] CPT4 Codes 60247 () Reason For Exam eval extremity paresthesias Report Clinical indications: Recent onset of headaches, facial tingling and left upper extremity tingling. FINDINGS: Multiplanar, multisequence imaging of the brain was performed with and without gadolinium (17 mL MultiHance). There are no prior exams for comparison. Diffusion-weighted pulse sequences show no evidence of focal signal abnormality suggestive of underlying acute or subacute ischemia. There is no evidence of mass effect, midline shift or hemorrhage. There are no unusual extra axial fluid collections. No evidence of focal signal abnormality is identified in the hemispheric parenchyma. The contents of the posterior fossa are also normal in appearance. The ventricular and cisternal spaces are of normal size and configuration for patient of this age. Midline structures including the corpus callosum, pituitary fossa and cerebellar vermis appear unremarkable. Flow voids of the distal internal carotid arteries, vertebral arteries and basilar artery are grossly within normal limits. There is no evidence of abnormal parenchymal, leptomeningeal or dural following gadolinium administration. The orbital contents, mastoid air cells and paranasal sinuses appear free of significant focal signal abnormality.>] Impression: Unremarkable MRI of the brain. Report Dictated on --- Final --- Dictating Physician: MD BAÑUELOS RUSSELL Signed Date and Time: 08/11/2019 2:21 pm Signed by: MD BAÑUELOS RUSSELL Transcribed Date and Time: 08/11/2019 2:22 [place] MRI Brain w/ + w/o Contrasto n 08-11-2019 MRI Brain w/ + w/o Contrast Patient Name: EDU WASHINGTON MRI Exam Date/Time 08/11/2019 14:14:35 EDT Exam MRI Brain w/ + w/o Contrast Ordering Physician DO MEJIA EUGENE F. Accession Number [id number] CPT4 Codes 54951 () Reason For Exam eval extremity paresthesias Report Clinical indications: Recent onset of headaches, facial tingling and left upper extremity tingling. FINDINGS: Multiplanar, multisequence imaging of the brain was performed with and without gadolinium (17 mL MultiHance). There are no prior exams for comparison. Diffusion-weighted pulse sequences show no evidence of focal signal abnormality suggestive of underlying acute or subacute ischemia. There is no evidence of mass effect, midline shift or hemorrhage. There are no unusual extra axial fluid collections. No evidence of focal signal abnormality is identified in the hemispheric parenchyma. The contents of the posterior fossa are also normal in appearance. The ventricular and cisternal spaces are of normal size and configuration for patient of this age. Midline structures including the corpus callosum, pituitary fossa and cerebellar vermis appear unremarkable. Flow voids of the distal internal carotid arteries, vertebral arteries and basilar artery are grossly within normal limits. There is no evidence of abnormal parenchymal, leptomeningeal or dural following gadolinium administration. The orbital contents, mastoid air cells and paranasal sinuses appear free of significant focal signal abnormality.>] Impression: Unremarkable MRI of the brain. Report Dictated on Final Dictating Physician: MD BAÑUELOS RUSSELL Signed Date and Time: 08/11/2019 2:21 pm Signed by: MD BAÑUELOS RUSSELL Transcribed Date and Time: 08/11/2019 2:22 Normal [facility] MRI CERVICAL SPINE W WO CONT Kateryna 08-11-2019 Patient Name: EDU GARDUNO ---MRI--- Exam Date/Time 08/11/2019 14:14:13 EDT Exam MRI Spine Cervical w/ + w/o Contrast Ordering Physician DO MEJIA EUGENE F. Accession Number [id number] CPT4 Codes 95963 () Reason For Exam eval extremity paresthesias Report Clinical indications: Headache, facial and upper extremity tingling. FINDINGS: Multiplanar, multisequence imaging of the cervical spine was performed with and without gadolinium (17 mL MultiHance). There are no prior studies for comparison. Alignment, curvature and segmentation of the cervical spine are within limits. Vertebral body height is maintained. Marrow signal characteristics are generally unremarkable. There is no evidence of focal spinal cord signal abnormality, atrophy, expansion or enhancement. There is no evidence of intradural or extradural mass lesion. The craniocervical junction and visualized contents of the posterior fossa are within normal limits. C2-C3, C3-C4, C4-C5, C5-C6, C7-T1: Disc space height and signal at these levels is preserved. No appreciable protrusion or bulge is identified. There is no evidence of central stenosis. The foramina are widely patent. C6-C7: There is very slight disc space narrowing and a small central protrusion is identified, causing a small amount of effacement of CSF signal on the ventral margin of the thecal sac. There is no evidence of cord contact or indentation. There is no central stenosis. The foramina are patent. IMPRESSION: Minimal disc degenerative changes and a small central protrusion are observed at C6-C7. There is no evidence of central stenosis or foraminal compromise of the cervical spine. Report Dictated on --- Final --- Dictating Physician: MD BAÑUELOS RUSSELL Signed Date and Time: 08/11/2019 2:28 pm Signed by: MD BAÑUELOS RUSSELL Transcribed Date and Time: 08/11/2019 2:[address] [facility] [place] [facility] Incoming Radiology Results From [facility] - 08/11/2019 2:29 PM EDT Patient Name: EDU WASHINGTON ---MRI--- Exam Date/Time 08/11/2019 14:14:13 EDT Exam MRI Spine Cervical w/ + w/o Contrast Ordering Physician DO MEJIA EUGENE F. Accession Number [id number] CPT4 Codes 89757 () Reason For Exam eval extremity paresthesias Report Clinical indications: Headache, facial and upper extremity tingling. FINDINGS: Multiplanar, multisequence imaging of the cervical spine was performed with and without gadolinium (17 mL MultiHance). There are no prior studies for comparison. Alignment, curvature and segmentation of the cervical spine are within limits. Vertebral body height is maintained. Marrow signal characteristics are generally unremarkable. There is no evidence of focal spinal cord signal abnormality, atrophy, expansion or enhancement. There is no evidence of intradural or extradural mass lesion. The craniocervical junction and visualized contents of the posterior fossa are within normal limits. C2-C3, C3-C4, C4-C5, C5-C6, C7-T1: Disc space height and signal at these levels is preserved. No appreciable protrusion or bulge is identified. There is no evidence of central stenosis. The foramina are widely patent. C6-C7: There is very slight disc space narrowing and a small central protrusion is identified, causing a small amount of effacement of CSF signal on the ventral margin of the thecal sac. There is no evidence of cord contact or indentation. There is no central stenosis. The foramina are patent. IMPRESSION: Minimal disc degenerative changes and a small central protrusion are observed at C6-C7. There is no evidence of central stenosis or foraminal compromise of the cervical spine. Report Dictated on --- Final --- Dictating Physician: MD BAÑUELOS RUSSELL Signed Date and Time: 08/11/2019 2:28 pm Signed by: MD BAÑUELOS RUSSELL Transcribed Date and Time: 08/11/2019 2:29 [place] MRI Spine Cervical w/ + w/o Contraston 08-11-2019 MRI Spine Cervical w/ + w/o Contrast Patient Name: EDU WASHINGTON MRI Exam Date/Time 08/11/2019 14:14:13 EDT Exam MRI Spine Cervical w/ + w/o Contrast Ordering Physician DO MEJIA EUGENE F. Accession Number [id number] CPT4 Codes 56271 () Reason For Exam eval extremity paresthesias Report Clinical indications: Headache, facial and upper extremity tingling. FINDINGS: Multiplanar, multisequence imaging of the cervical spine was performed with and without gadolinium (17 mL MultiHance). There are no prior studies for comparison. Alignment, curvature and segmentation of the cervical spine are within limits. Vertebral body height is maintained. Marrow signal characteristics are generally unremarkable. There is no evidence of focal spinal cord signal abnormality, atrophy, expansion or enhancement. There is no evidence of intradural or extradural mass lesion. The craniocervical junction and visualized contents of the posterior fossa are within normal limits. C2-C3, C3-C4, C4-C5, C5-C6, C7-T1: Disc space height and signal at these levels is preserved. No appreciable protrusion or bulge is identified. There is no evidence of central stenosis. The foramina are widely patent. C6-C7: There is very slight disc space narrowing and a small central protrusion is identified, causing a small amount of effacement of CSF signal on the ventral margin of the thecal sac. There is no evidence of cord contact or indentation. There is no central stenosis. The foramina are patent. IMPRESSION: Minimal disc degenerative changes and a small central protrusion are observed at C6-C7. There is no evidence of central stenosis or foraminal compromise of the cervical spine. Report Dictated on Final Dictating Physician: MD BAÑUELOS RUSSELL Signed Date and Time: 08/11/2019 2:28 pm Signed by: MD BAÑUELOS RUSSELL Transcribed Date and Time: 08/11/2019 2:29 Normal [facility] Basic Metabolic Panelon 10-2 Calcium [Mass/Vol] 9.1 mg/dL Normal 8.4-10.4 [facility] Comment on above: Performed By: #### T THAI BRAND3, TROPN #### [address] [address] Glucose [Mass/Vol] 106 mg/dL High 70-100 [facility] Comment on above: Performed By: #### T THAI BRAND3 TROPN #### [address] [address] Urea nitrogen [Mass/Vol] 11 mg/dL Normal 7-20 [facility] Comment on above: Performed By: #### T CATHIE BMP3 TROPN #### [address] [place] [address] Anion gap [Moles/Vol] 8 Normal [facility] Comment on above: Performed By: #### T THAI BRAND3, TROPN #### [address] [place] [address] CO2 [Moles/Vol] 24 mmol/L Normal 22-30 [facility] Comment on above: Performed By: #### T CATHIE, BMPStephen, TROPN #### [address] [place] [address] Creatinine [Mass/Vol] 0.60 mg/dL Normal 0.52-1.25 [facility] Comment on above: Performed By: #### T DOMINIQUE BRAND, TROPN #### [address] [place] [address] GFR/1.73 sq M predicted among blacks MDRD (S/P/Bld) [Vol rate/Area] mL/min/{1.73_m2} Normal >60 [facility] Comment on above: Performed By: #### T DOMINIQUE BRAND, TROPN #### [address] [place] [address] GFR/1.73 sq M predicted among non-blacks MDRD (S/P/Bld) [Vol rate/Area] mL/min/{1.73_m2} Normal >60 [facility] Comment on above: Result Comment: Sour ce- MDRD equation with creatinine calibration to IDMS(NKDEP) eGFR not recommended for drug dose adjustment Performed By: #### T CATHIE, BMPStephen, TROPN #### [address] [place] [address] Potassium [Moles/Vol] 3.9 mmol/L Normal 3.5-5.1 [facility] Comment on above: Performed By: #### T CATHIE BMPStephen, TROPN #### [address] [place] [address] Chloride [Moles/Vol] 108 mmol/L High 98-107 [facility] Comment on above: Performed By: #### T CATHIE, BMP3, TROPN #### [address] [place] [address] Sodium [Moles/Vol] 140 mmol/L Normal 135-145 [facility] Comment on above: Performed By: #### T SH5, BMP3, SUNNYN #### [facility] [address] [place] [address] Anion gap [Moles/Vol] 8 mmol/L [place], [place] Calcium [Mass/Vol] 9.1 mg/dL 8.4 - 10. 4 mg/dL [place], [place] Chloride [Moles/Vol] 108 mmol/L High 98 - 10 7 mmol/L [place] CO2 [Moles/Vol] 24 mmol/L 22 - 30 mmol/L [place] Creatinine [Mass/Vol] 0.6 mg/dL 0.52 - 1.25 mg/dL [place] EGFR IF NonAfrican Bulgarian >60.0 >60 mL/min [place] Comment on above: Source- MDRD equatio n with creatinine calibration to IDMS(NKDEP) eGFR not recommended for drug dose adjustment GFR/1.73 sq M predicted among blacks MDRD (S/P/Bld) [Vol rate/Area] mL/min/{1.73_m2} >60 mL/min [place] Glucose [Mass/Vol] 106 mg/dL High 70 - 100 mg/dL [place] Interpretation and review of laboratory results Abnormal [place] Potassium [Moles/Vol] 3.9 mmol/L 3.5 - 5.1 mmol/L [place] Sodium [Moles/Vol] 140 mmol/L 135 - 145 mmol/L [place] Urea nitrogen [Mass/Vol] 11 mg/dL 7 - 20 mg/dL [place] Test Performed by [facility], [address] [facility], [place] [address] [place], [place] CR Chest PA/LATon 08-07-2019 CR Chest PA/LAT Patient Name: EDU GARDUNO Diagnostic Radiology Exam Date/Time 08/07/2019 16:23:47 EDT Exam CR Chest PA/LAT Ordering Physician MD KAROL, BRI Rodriguez Accession Number [id number] CPT4 Codes 39525 () Reason For Exam palpitations Report EXAM TYPE: RADIOLOGIC EXAMINATION, CHEST, two views. EXAM DATE AND TIME: 08/07/2019 4:23 PM EDT INDICATION: Palpitations COMPARISON: None available. TECHNIQUE: Two views of the thorax were obtained and reviewed. Special views: None. Findings: 1. Lines/Tubes/Devices/Hard mercado: None. 2. Lungs: No consolidation or pulmonary edema. 3. Pleura: No pneumothorax or pleural effusions. 4. Heart and mediastinum: Normal cardiomediastinal contours. 5. Upper abdomen: Distended stomach with air-fluid level noted. IMPRESSION: No acute pulmonary process. Air-fluid level in distended stomach of uncertain significance. Report Dictated on Final Dictated: 08/07/2019 4:25 pm Dictating Physician: MD WELLINGTON JOHN Signed Date and Time: 08/07/2019 4:26 pm Signed by: MD WELLINGTON JOHN Transcribed Date and Time: 08/07/2019 4:25 Normal [facility] D-Dimer, Innovanceon 019 D-Dimer, Innovance < 0.19 Normal <0.19-0.50 [facility] Comment on above: Result Comment: Inno jurado D-Dimer values of <0.50 mg/L FEU can be used in combination with a pre-test probability model (e.g. Well's) to exclude pulmonary embolism (PE) disease, as well as an aid in the diagnosis of deep vein thrombosis (DVT). Performed By: #### H EMOG, DDI2 #### [address] [address] D-Dimer, Quantitativeon 07-15 D-Dimer, Quant <0.19 <0.19 - 0.50 mg/L [facility], [place] Comment on above: Innovance D-Dimer va lues of <0.50 mg/L FEU can be used in combination with a pre-test probability model (e.g. Well's) to exclude pulmonary embolism (PE) disease, as well as an aid in the diagnosis of deep vein thrombosis (DVT). Test Performed by [facility], [address] [facility] [address] [facility] [place], [place] Hemogramon 08-07-2019 Erythrocyte distribution width (RBC) [Ratio] 11.4 % Low 11.5-14.5 [facility] Comment on above: Performed By: #### H EMOG, DDI2 #### [facility] [address] [place] [address] Hematocrit (Bld) [Volume fraction] 46.1 % Normal 35.0-47.0 [facility] Comment on above: Performed By: #### H EMOG, DDI2 #### [address] [address] Hemoglobin (Bld) [Mass/Vol] 15.2 g/dL Normal 11.7-16.0 [facility] Comment on above: Performed By: #### H EMOG, DDI2 #### [address] [address] MCH (RBC) [Entitic mass] 31.0 pg Normal 26.0-34.0 [facility] Comment on above: Performed By: #### H EMOG, DDI2 #### [address] [address] MCHC (RBC) [Mass/Vol] 33.0 % Normal 32.0-36.0 [facility] Comment on above: Performed By: #### H EMOG, DDI2 #### [address] [address] MCV (RBC) [Entitic vol] 93.6 fL Normal 79.0-98.0 [facility] Comment on above: Performed By: #### H EMOG, DDI2 #### [address] [address] Platelet mean volume (Bld) [Entitic vol] 8.0 fL Normal 7.4-10.4 [facility] Comment on above: Performed By: #### H EMOG, DDI2 #### [address] [address] Platelets (Bld) [#/Vol] 316 10*3/uL Normal 140-440 [facility] Comment on above: Performed By: #### H EMOG, DDI2 #### [facility] [address] [place] [address] RBC (Bld) [#/Vol] 4.92 10*6/uL Normal 3.80-5.20 [facility] Comment on above: Performed By: #### H EMOG, DDI2 #### [facility] [address] [place] [address] WBC (Bld) [#/Vol] 7.2 10*3/uL Normal 3.6-10.7 [facility] Comment on above: Performed By: #### H BRAULIOG, DDI2 #### [address] [address] Hemogram (CBC)on 08-07-2019 Erythrocyte distribution width (RBC) [Ratio] 11.4 % Low 11.5 - 14.5 % [place] Hematocrit (Bld) [Volume fraction] 46.1 % 35 - 47 % [place] Hemoglobin (Bld) [Mass/Vol] 15.2 g/dL 11.7 - 16 g/dL [place] Interpretation and review of laboratory results Abnormal [place] MCH (RBC) [Entitic mass] 31.0 pg 26 - 34 pg [place] MCHC (RBC) [Mass/Vol] 33.0 % 32 - 36 % [place] MCV (RBC) [Entitic vol] 93.6 fL 79 - 98 fL [place] Platelet mean volume (Bld) [Entitic vol] 8.0 fL 7.4 - 10.4 fL [place] Platelets (Bld) [#/Vol] 316 10*3/uL 140 - 440 10*3/uL [place] RBC (Bld) [#/Vol] 4.92 10*6/uL 3.8 - 5.2 10*6/uL [place] WBC (Bld) [#/Vol] 7.2 10*3/uL 3.6 - 10.7 10*3/uL [place] Test Performed by [facility], [address] [place] [address] TSH without Reflexon 019 TSH Qn 1.272 u[IU]/mL 0.465 - 4.68 u[IU]/mL [place] Test Performed by [facility], [address] [place] [address] Thyroid Stim. Hormoneon 07-15 Thyroid Stim. Hormone 1.272 u[IU]/mL Normal 0.465-4.68 0 [facility] Comment on above: Performed By: #### T SH5, BMP3, TROPN #### [address] [address] Troponin Ion 08-07-2019 Troponin I.cardiac [Mass/Vol] ng/mL Normal 0.000-0.034 [facility] Comment on above: Result Comment: . Performed By: #### T SH5, BMP3, TROPN #### [address] [address] Troponin x1on 08-07-2019 Troponin I.cardiac [Mass/Vol] ng/mL 0 - 0.034 ng/mL [place] Comment on above: . Test Performed by [facility], [address] [place] [address] XR CHEST STANDARD (2 VW)on [place], [facility] Incoming Radiology Results From [facility] - 08/07/2019 4:28 PM EDT Patient Name: EDU WASHINGTON ---Diagnostic Radiology--- Exam Date/Time 08/07/2019 16:23:47 EDT Exam CR Chest PA/LAT Ordering Physician MD KAROL, BRI Rodriguez Accession Number [id number] CPT4 Codes 23466 () Reason For Exam palpitations Report EXAM TYPE: RADIOLOGIC EXAMINATION, CHEST, two views. EXAM DATE AND TIME: 08/07/2019 4:23 PM EDT INDICATION: Palpitations COMPARISON: None available. TECHNIQUE: Two views of the thorax were obtained and reviewed. Special views: None. Findings: 1. Lines/Tubes/Devices/Hard mercado: None. 2. Lungs: No consolidation or pulmonary edema. 3. Pleura: No pneumothorax or pleural effusions. 4. Heart and mediastinum: Normal cardiomediastinal contours. 5. Upper abdomen: Distended stomach with air-fluid level noted. IMPRESSION: No acute pulmonary process. Air-fluid level in distended stomach of uncertain significance. Report Dictated on --- Final --- Dictated: 08/07/2019 4:25 pm Dictating Physician: MD WELLINGTON JOHN Signed Date and Time: 08/07/2019 4:26 pm Signed by: MD WELLINGTON JOHN Transcribed Date and Time: 08/07/2019 4:25 [place] Patient Name: EDU GARDUNO ---Diagnostic Radiology--- Exam Date/Time 08/07/2019 16:23:47 EDT Exam CR Chest PA/LAT Ordering Physician MD KAROL, BRI Rodriguez Accession Number [id number] CPT4 Codes 80051 () Reason For Exam palpitations Report EXAM TYPE: RADIOLOGIC EXAMINATION, CHEST, two views. EXAM DATE AND TIME: 08/07/2019 4:23 PM EDT INDICATION: Palpitations COMPARISON: None available. TECHNIQUE: Two views of the thorax were obtained and reviewed. Special views: None. Findings: 1. Lines/Tubes/Devices/Hard mercado: None. 2. Lungs: No consolidation or pulmonary edema. 3. Pleura: No pneumothorax or pleural effusions. 4. Heart and mediastinum: Normal cardiomediastinal contours. 5. Upper abdomen: Distended stomach with air-fluid level noted. IMPRESSION: No acute pulmonary process. Air-fluid level in distended stomach of uncertain significance. Report Dictated on --- Final --- Dictated: 08/07/2019 4:25 pm Dictating Physician: MD WELLINGTON JOHN Signed Date and Time: 08/07/2019 4:26 pm Signed by: MD WELLINGTON JOHN Transcribed Date and Time: 08/07/2019 4:25 [place] CR Spine Cervical 4+ Viewson 07-25-2019 CR Spine Cervical 4+ Views Patient Name: EDU WASHINGTON Diagnostic Radiology Exam Date/Time 07/25/2019 11:51:03 EDT Exam CR Spine Cervical 4+ Views Ordering Physician UNASSIGNED, UNASSIGNED Accession Number [id number] CPT4 Codes 53703 () Reason For Exam radiculopathy Report CERVICAL SPINE 5 VIEWS CLINICAL INDICATION: Neck pain and radiculopathy TECHNIQUE: 5 views of the cervical spine. COMPARISON: None. FINDINGS: No loss of height or gross malalignment of vertebral bodies. No osseous destruction. Disc spaces maintained. Neural foramina grossly patent. Prevertebral soft tissues grossly unremarkable. IMPRESSION: 1. No acute osseous abnormality. Report Dictated on Workstation: [id number] Final Dictating Physician: MD MORGAN WENDELL Signed Date and Time: 07/25/2019 6:59 pm Signed by: MD MORGAN WENDELL Transcribed Date and Time: 07/25/2019 7:00 [facility] XR CERVICAL SPINE (4-5 VIEWS )on 07-25-2019 Patient Name: EDU GARDUNO ---Diagnostic Radiology--- Exam Date/Time 07/25/2019 11:51:03 EDT Exam CR Spine Cervical 4+ Views Ordering Physician UNASSIGNED, UNASSIGNED Accession Number [id number] CPT4 Codes 98001 () Reason For Exam radiculopathy Report CERVICAL SPINE 5 VIEWS CLINICAL INDICATION: Neck pain and radiculopathy TECHNIQUE: 5 views of the cervical spine. COMPARISON: None. FINDINGS: No loss of height or gross malalignment of vertebral bodies. No osseous destruction. Disc spaces maintained. Neural foramina grossly patent. Prevertebral soft tissues grossly unremarkable. IMPRESSION: 1. No acute osseous abnormality. Report Dictated on Workstation: [id number] --- Final --- Dictating Physician: MD MORGAN WENDELL Signed Date and Time: 07/25/2019 6:59 pm Signed by: MD MORGAN WENDELL Transcribed Date and Time: 07/25/2019 7:00 [facility] [place] [place], [facility] Incoming Radiology Results From [facility] - 07/25/2019 7:00 PM EDT Patient Name: EDU WASHINGTON ---Diagnostic Radiology--- Exam Date/Time 07/25/2019 11:51:03 EDT Exam CR Spine Cervical 4+ Views Ordering Physician UNASSIGNED, UNASSIGNED Accession Number [id number] CPT4 Codes 82621 () Reason For Exam radiculopathy Report CERVICAL SPINE 5 VIEWS CLINICAL INDICATION: Neck pain and radiculopathy TECHNIQUE: 5 views of the cervical spine. COMPARISON: None. FINDINGS: No loss of height or gross malalignment of vertebral bodies. No osseous destruction. Disc spaces maintained. Neural foramina grossly patent. Prevertebral soft tissues grossly unremarkable. IMPRESSION: 1. No acute osseous abnormality. Report Dictated on Workstation: [id number] --- Final --- Dictating Physician: MD MORGAN WENDELL Signed Date and Time: 07/25/2019 6:59 pm Signed by: MD MORGAN WENDELL Transcribed Date and Time: 07/25/2019 7:00 [place] Culture, urine Bacteria identified Cx Nom (U) Culture exhibits no growth. [facility] Work Phone: Vital Signs Date Time Vital Sign Value Performing Clinician Facility 11-22-2023 10:130500 Body height 165.[address] Derik Ingram Work Phone: [facility] 11-22-2023 10:13-0500 Body mass index (BMI) [Ratio] 31.1 kg/m2 Dr. Derik Ingram Work Phone: [facility] 11-22-2023 10:13-0500 Body temperature 97.3 [degF] Dr. Derik Ingram Work Phone: [facility] 11-22-2023 10:13050 Body weight 84.[address] Derik Ingram Work Phone: [facility] 11-22-2023 10:13-0500 Diastolic blood pressure 74 mm[Hg] Dr. Derik Ingram Work Phone: [facility] 11-22-2023 10:13-0500 Heart rate 90 /min Dr. Derik Ingram Work Phone: [facility] 11-22-2023 10:13-0500 Respiratory rate 16 /min Dr. Derik Ingram Work Phone: [facility] 11-22-2023 10:13-0500 SaO2% (BldA) [Mass fraction] 99 % Dr. Derik Ingram Work Phone: [facility] 11-22-2023 10:13-0500 Systolic blood pressure 124 mm[Hg] Dr. Derik Ingram Work Phone: [facility] 05-23-2023 08:34-0400 Body height 165.[address] Derik Ingram Work Phone: [facility] 05-23-2023 08:34-0400 Body mass index (BMI) [Ratio] 32.4 kg/m2 Dr. Derik Ingram Work Phone: [facility] 05-23-2023 08:34-0400 Body temperature 97.1 [degF] Dr. Derik Ingram Work Phone: [facility] 05-23-2023 08:34-0400 Body weight 88.[address] Derik Ingram Work Phone: [facility] 05-23-2023 08:34-0400 Diastolic blood pressure 74 mm[Hg] Dr. Derik Ingram Work Phone: [facility] 05-23-2023 08:34-0400 Heart rate 90 /min Dr. Derik Ingram Work Phone: [facility] 05-23-2023 08:34-0400 Respiratory rate 16 /min Dr. Derik Ingram Work Phone: [facility] 05-23-2023 08:34-0400 SaO2% (BldA) [Mass fraction] 97 % Dr. Derik Ingram Work Phone: [facility] 05-23-2023 08:34-0400 Systolic blood pressure 124 mm[Hg] Dr. Derik Ingram Work Phone: [facility] 05-23-2023 08:30-0400 Body mass index (BMI) [Ratio] 33.3 kg/m2 Dr. Derik Ingram Work Phone: [facility] 05-23-2023 08:30-0400 Body weight 90.[address] Derik Ingram Work Phone: [facility] 05-23-2023 08:30-0400 Diastolic blood pressure 89 mm[Hg] Dr. Derik Ingram Work Phone: [facility] 05-23-2023 08:30-0400 Systolic blood pressure 122 mm[Hg] Dr. Derik Ingram Work Phone: [facility] 04-11-2023 10:03-0400 Heart rate 77 /min Dr. Derik Ingram Work Phone: [facility] 04-11-2023 10:03-0400 SaO2% (BldA) [Mass fraction] 100 % Dr. Derik Ingram Work Phone: [facility] 04-11-2023 09:53-0400 Diastolic blood pressure 74 mm[Hg] Dr. Derik Ingram Work Phone: [facility] 04-11-2023 09:53-0400 Systolic blood pressure 124 mm[Hg] Dr. Derik Ingram Work Phone: [facility] 04-10-2023 17:20-0400 Body temperature 97.2 [degF] Dr. Derik Ingram Work Phone: [facility] 04-10-2023 17:20-0400 Diastolic blood pressure 82 mm[Hg] Dr. Derik Ingram Work Phone: [facility] 04-10-2023 17:20-0400 Heart rate 83 /min Dr. Derik Ingram Work Phone: [facility] 04-10-2023 17:20-0400 Respiratory rate 16 /min Dr. Derik Ingram Work Phone: [facility] 04-10-2023 17:20-0400 SaO2% (BldA) [Mass fraction] 99 % Dr. Derik Ingram Work Phone: [facility] 04-10-2023 17:20-0400 Systolic blood pressure 124 mm[Hg] Dr. Derik Ingram Work Phone: [facility] 04-09-2023 15:53-0400 Body height 165.[address] Derik Ingram Work Phone: [facility] 04-09-2023 15:53-0400 Body mass index (BMI) [Ratio] 37.5 kg/m2 Dr. Derik Ingram Work Phone: [facility] 04-09-2023 15:53-0400 Body weight 102.[address] Derik Ingram Work Phone: [facility] 04-08-2023 14:19-0400 Body mass index (BMI) [Ratio] 37.8 kg/m2 Dr. Derik Ingram Work Phone: [facility] 04-08-2023 14:19-0400 Body weight 102.[address] Derik Ingram Work Phone: [facility] 04-08-2023 14:19-0400 Diastolic blood pressure 88 mm[Hg] Dr. Derik Ingram Work Phone: [facility] 04-08-2023 14:19-0400 Systolic blood pressure 125 mm[Hg] Dr. Derik Ingram Work Phone: [facility] 04-04-2023 10:07-0400 Body mass index (BMI) [Ratio] 38 kg/m2 Dr. Derik Ingram Work Phone: [facility] 04-04-2023 10:07-0400 Body weight 103.[address] Derik Ingram Work Phone: [facility] 04-04-2023 10:07-0400 Diastolic blood pressure 74 mm[Hg] Dr. Derik Ingram Work Phone: [facility] 04-04-2023 10:07-0400 Systolic blood pressure 122 mm[Hg] Dr. Derik Ingram Work Phone: [facility] 04-01-2023 10:58-0400 Body mass index (BMI) [Ratio] 37.8 kg/m2 Dr. Derik Ingram Work Phone: [facility] 04-01-2023 10:58-0400 Body weight 103.[address] Derik Ingram Work Phone: [facility] 04-01-2023 10:58-0400 Diastolic blood pressure 85 mm[Hg] Dr. Derik Ingram Work Phone: [facility] 04-01-2023 10:58-0400 Systolic blood pressure 133 mm[Hg] Dr. Derik Ingram Work Phone: [facility] 03-28-2023 10:06-0400 Body height 165.[address] Derik Ingram Work Phone: [facility] 03-28-2023 10:03-0400 Body mass index (BMI) [Ratio] 37.9 kg/m2 Dr. Derik Ingram Work Phone: [facility] 03-28-2023 10:03-0400 Body weight 103.[address] Derik Ingram Work Phone: [facility] 03-28-2023 10:03-0400 Diastolic blood pressure 83 mm[Hg] Dr. Derik Ingram Work Phone: [facility] 03-28-2023 10:03-0400 Systolic blood pressure 119 mm[Hg] Dr. Derik Ingram Work Phone: [facility] 03-25-2023 08:58-0400 Body mass index (BMI) [Ratio] 37.8 kg/m2 Dr. Derik Ingram Work Phone: [facility] 03-25-2023 08:58-0400 Body weight 103.[address] Derik Ingram Work Phone: [facility] 03-25-2023 08:58-0400 Diastolic blood pressure 82 mm[Hg] Dr. Derik Ingram Work Phone: [facility] 03-25-2023 08:58-0400 Systolic blood pressure 123 mm[Hg] Dr. Derik Ingram Work Phone: [facility] 03-21-2023 11:17-0400 Body mass index (BMI) [Ratio] 37.8 kg/m2 Dr. Derik Ingram Work Phone: [facility] 03-21-2023 11:17-0400 Body weight 102.[address] Derik Ingram Work Phone: [facility] 03-21-2023 11:17-0400 Diastolic blood pressure 82 mm[Hg] Dr. Derik Ingram Work Phone: [facility] 03-21-2023 11:17-0400 Systolic blood pressure 122 mm[Hg] Dr. Derik Ingram Work Phone: [facility] 03-15-2023 11:32-0400 Diastolic blood pressure 83 mm[Hg] Dr. Derik Ingram Work Phone: [facility] 03-15-2023 11:32-0400 Systolic blood pressure 123 mm[Hg] Dr. Derik Ingram Work Phone: [facility] 03-15-2023 09:52-0400 Body mass index (BMI) [Ratio] 37.6 kg/m2 Dr. Derik Ingram Work Phone: [facility] 03-15-2023 09:52-0400 Body weight 102.[address] Derik Ingram Work Phone: [facility] 03-12-2023 09:08-0400 Body weight 103.[address] Derik nIgram Work Phone: [facility] 03-12-2023 09:08-0400 Diastolic blood pressure 85 mm[Hg] Dr. Derik Ingram Work Phone: [facility] 03-12-2023 09:08-0400 Systolic blood pressure 124 mm[Hg] Dr. Derik Ingram Work Phone: [facility] 03-07-2023 10:37-0400 Diastolic blood pressure 82 mm[Hg] Dr. Derik Ingram Work Phone: [facility] 03-07-2023 10:37-0400 Systolic blood pressure 138 mm[Hg] Dr. Derik Ingram Work Phone: [facility] 03-07-2023 10:08-0400 Body mass index (BMI) [Ratio] 37.8 kg/m2 Dr. Derik Ingram Work Phone: [facility] 03-07-2023 10:08-0400 Body weight 103.[address] Derik Ingram Work Phone: [facility] 03-04-2023 14:16-0400 Body mass index (BMI) [Ratio] 37 kg/m2 Dr. Derik Ingram Work Phone: [facility] 03-04-2023 14:16-0400 Body weight 100.[address] Derik Ingram Work Phone: [facility] 03-04-2023 14:16-0400 Diastolic blood pressure 84 mm[Hg] Dr. Derik Ingrma Work Phone: [facility] 03-04-2023 14:16-0400 Systolic blood pressure 132 mm[Hg] Dr. Derik Ingram Work Phone: [facility] 02-28-2023 11:17-0400 Body mass index (BMI) [Ratio] 37 kg/m2 Dr. Derik Ingram Work Phone: [facility] 02-28-2023 11:17-0400 Body weight 100.[address] Derik Ingram Work Phone: [facility] 02-28-2023 11:17-0400 Diastolic blood pressure 84 mm[Hg] Dr. Derik Ingram Work Phone: [facility] 02-28-2023 11:17-0400 Systolic blood pressure 130 mm[Hg] Dr. Derik Ingram Work Phone: [facility] 02-25-2023 14:19-0400 Body height 165.[address] Derik Ingram Work Phone: [facility] 02-25-2023 14:19-0400 Body mass index (BMI) [Ratio] 37.3 kg/m2 Dr. Derik Ingram Work Phone: [facility] 02-25-2023 14:19-0400 Body weight 101.[address] Derik Ingram Work Phone: [facility] 02-25-2023 14:19-0400 Diastolic blood pressure 78 mm[Hg] Dr. Derik Ingram Work Phone: [facility] 02-25-2023 14:19-0400 Systolic blood pressure 110 mm[Hg] Dr. Derik Ingram Work Phone: [facility] 02-18-2023 11:28-0400 Body mass index (BMI) [Ratio] 36.6 kg/m2 Dr. Derik Ingram Work Phone: [facility] 02-18-2023 11:28-0400 Body weight 99.[address] Derik Ingram Work Phone: [facility] 02-18-2023 11:28-0400 Diastolic blood pressure 73 mm[Hg] Dr. Derik Ingram Work Phone: [facility] 02-18-2023 11:28-0400 Systolic blood pressure 111 mm[Hg] Dr. Derik Ingram Work Phone: [facility] 02-04-2023 14:13-0400 Body height 165.[address] Derik Ingram Work Phone: [facility] 02-04-2023 14:09-0400 Body mass index (BMI) [Ratio] 37.1 kg/m2 Dr. Derik Ingram Work Phone: [facility] 02-04-2023 14:09-0400 Body weight 101.[address] Derik Ingram Work Phone: [facility] 02-04-2023 14:09-0400 Diastolic blood pressure 87 mm[Hg] Dr. Derik Ingram Work Phone: [facility] 02-04-2023 14:09-0400 Systolic blood pressure 126 mm[Hg] Dr. Derik Ingram Work Phone: [facility] 01-07-2023 14:25-0400 Body mass index (BMI) [Ratio] 36.6 kg/m2 Dr. Derik Ingram Work Phone: [facility] 01-07-2023 14:25-0400 Body weight 100.[address] Derik Ingram Work Phone: [facility] 01-07-2023 14:25-0400 Diastolic blood pressure 84 mm[Hg] Dr. Derik Ingram Work Phone: [facility] 01-07-2023 14:25-0400 Systolic blood pressure 128 mm[Hg] Dr. Derik Ingram Work Phone: [facility] 12-10-2022 14:15-0500 Body height 165.[address] Derik Ingram Work Phone: [facility] 12-10-2022 14:11-0500 Body mass index (BMI) [Ratio] 36.1 kg/m2 Dr. Derik Ingram Work Phone: [facility] 12-10-2022 14:11-0500 Body weight 98.[address] Derik Ingram Work Phone: [facility] 12-10-2022 14:11-0500 Diastolic blood pressure 80 mm[Hg] Dr. Derik Ingram Work Phone: [facility] 12-10-2022 14:11-0500 Systolic blood pressure 131 mm[Hg] Dr. Derik Ingram Work Phone: [facility] 11-13-2022 13:35-0500 Body height 165.[address] Derik Ingram Work Phone: [facility] 11-13-2022 13:35-0500 Body mass index (BMI) [Ratio] 36.2 kg/m2 Dr. Derik Ingram Work Phone: [facility] 11-13-2022 13:35-0500 Body weight 98.[address] Derik Ingram Work Phone: [facility] 11-13-2022 13:35-0500 Diastolic blood pressure 85 mm[Hg] Dr. Derik Ingram Work Phone: [facility] 11-13-2022 13:35-0500 Systolic blood pressure 120 mm[Hg] Dr. Derik Ingram Work Phone: [facility] 10-16-2022 13:05-0500 Body mass index (BMI) [Ratio] 35.9 kg/m2 Dr. Derik Ingram Work Phone: [facility] 10-16-2022 13:05-0500 Body weight 97.[address] Derik Ingram Work Phone: [facility] 10-16-2022 13:05-0500 Diastolic blood pressure 78 mm[Hg] Dr. Derik Ingram Work Phone: [facility] 10-16-2022 13:05-0500 Systolic blood pressure 119 mm[Hg] Dr. Derik Ingram Work Phone: [facility] 10-14-2022 00:40-0500 Body weight 100.[address] Derik Ingram Work Phone: [facility] 10-11-2022 09:12-0500 Body mass index (BMI) [Ratio] 36.8 kg/m2 Dr. Derik Ingram Work Phone: [facility] 10-11-2022 09:12-0500 Body temperature 96.8 [degF] Dr. Derik Ingram Work Phone: [facility] 10-11-2022 09:12-0500 Body weight 100.[address] Derik Ingram Work Phone: [facility] 10-11-2022 09:12-0500 Diastolic blood pressure 83 mm[Hg] Dr. Derik Ingram Work Phone: [facility] 10-11-2022 09:12-0500 Heart rate 91 /min Dr. Derik Ingram Work Phone: [facility] 10-11-2022 09:12-0500 Respiratory rate 16 /min Dr. Derik Ingram Work Phone: [facility] 10-11-2022 09:12-0500 SaO2% (BldA) [Mass fraction] 98 % Dr. Derik Ingram Work Phone: [facility] 10-11-2022 09:12-0500 Systolic blood pressure 119 mm[Hg] Dr. Derik Ingram Work Phone: [facility] 10-09-2022 14:30-0500 Body weight 100.[address] Derik Ingram Work Phone: [facility] 09-17-2022 13:53-0500 Diastolic blood pressure 80 mm[Hg] Out [facility] 09-17-2022 13:53-0500 Systolic blood pressure 116 mm[Hg] Out [facility] 09-17-2022 13:22-0500 Body height 165.1 cm Out [facility] Work Phone: 09-17-2022 13:22-0500 Body mass index (BMI) [Ratio] 36.1 kg/m2 Out [facility] 09-17-2022 13:22-0500 Body weight 98.42 kg Out [facility] 06-19-2022 09:59-0400 Body height 165.1 cm Out [facility] Work Phone: 06-19-2022 09:59-0400 Body mass index (BMI) [Ratio] 35.1 kg/m2 Out [facility] Work Phone: 06-19-2022 09:59-0400 Body temperature 97.9 [degF] Out [facility] Work Phone: 06-19-2022 09:59-0400 Body weight 95.7 kg Out [facility] Work Phone: 06-19-2022 09:59-0400 Diastolic blood pressure 84 mm[Hg] [facility] Work Phone: 06-19-2022 09:59-0400 Heart rate 92 /min [facility] Work Phone: 06-19-2022 09:59-0400 Respiratory rate 16 /min Out [facility] Doctor [facility] Work Phone: 06-19-2022 09:59-0400 SaO2% (BldA) [Mass fraction] 99 % [facility] Work Phone: 06-19-2022 09:59-0400 Systolic blood pressure 120 mm[Hg] [facility] Work Phone: 03-20-2021 09:07-0400 Body mass index (BMI) [Ratio] 31.49 kg/m2 Shalini López Archinal Work Phone: [facility] Work Phone: 03-20-2021 09:07-0400 Body surface area Derived from formula 1.98 m2 Shalini López Archinal Work Phone: [facility] Work Phone: 03-20-2021 09:07-0400 Body temperature 97.9 [degF] Shalini E Archinal Work Phone: [facility] Work Phone: 03-20-2021 09:07-0400 Body weight 88.51 kg Shalini E Archinal Work Phone: [facility] Work Phone: 03-20-2021 09:07-0400 Diastolic blood pressure 84 mm[Hg] Shalini E Archinal Work Phone: [facility] Work Phone: 03-20-2021 09:07-0400 Heart rate 88 /min Sahlini E Archinal Work Phone: [facility] Work Phone: 03-20-2021 09:07-0400 SaO2% (BldA) [Mass fraction] 98 % Shalini E Archinal Work Phone: [facility] Work Phone: 03-20-2021 09:07-0400 Systolic blood pressure 128 mm[Hg] Shalini E Archinal Work Phone: [facility] Work Phone: 04-20-2020 12:46-0400 BMI (Body Mass Index) 29.44 kg/m2 Shalini Archinal [facility] Work Phone: 04-20-2020 12:46-0400 Body Temperature 98.2 [degF] Shalini Archinal [facility] Work Phone: Comment on above: Method: Oral 04-20-2020 12:46-0400 Body weight 82.73 kg Shalini Archinal [facility] Work Phone: 04-20-2020 12:46-0400 BP Diastolic 52 mm[Hg] Shalini Archinal [facility] Work Phone: Comment on above: Location: LUE; Position: Sitting 04-20-2020 12:46-0400 BP Systolic 100 mm[Hg] Shalini Archinal [facility] Work Phone: Comment on above: Location: LUE; Position: Sitting 04-20-2020 12:46-0400 BSA (Body Surface Area) 1.92 m2 Shalini Archinal [facility] Work Phone: 04-20-2020 12:46-0400 Height 167.64 cm Shalini Archinal [facility] Work Phone: 04-20-2020 12:46-0400 Pulse (Heart Rate) 92 /min Shalini Archinal [facility] Work Phone: 04-20-2020 12:46-0400 Pulse Oximetry 99 % Shalini Archinal [facility] Work Phone: Comment on above: Source: 04-20-2020 12:46-0400 Respiratory Rate 16 /min Shalini Archinal [facility] Work Phone: 08-07-2019 15:46-0400 BMI (Body Mass Index) 31.95 kg/m2 [place] 08-07-2019 15:46-0400 Body Temperature 98.4 [degF] Bri [place] 08-07-2019 15:46-0400 Body weight 87.09 kg [place], [place] 08-07-2019 15:46-0400 BP Diastolic 94 mm[Hg] [place] 08-07-2019 15:46-0400 BP Systolic 128 mm[Hg] [place] 08-07-2019 15:46-0400 Height 165.1 cm [place] 08-07-2019 15:46-0400 Pulse (Heart Rate) 107 /min [place] 08-07-2019 15:46-0400 Pulse Oximetry 98 % [place] 08-07-2019 15:46-0400 Respiratory Rate 18 /min [place] Encounters Encounter Date Encounter Type Care Provider Facility Start: 07-01-2025 ambulatory [facility] Start: 07-22-2024 Encounter for genera l adult medical examination without abnormal findings [facility] Start: 06-29-2024 End: 06-29-2024 ambulatory [facility] Facility:[facility] Start: 06-29-2024 End: 06-29-2024 ambulatory Derik Ingram Facility:[facility] Start: 11-22-2023 End: 11-22-[address] Derik Ingram Work Phone: [facility] Work Phone: Start: 11-22-2023 End: 11-22-[address] Derik Ingram Work Phone: [facility] Internal Medicine Work Phone: Start: 06-24-2023 End: 06-24-[address] Derik Ingram Work Phone: [facility] Work Phone: Start: 06-24-[address] Derik Ingram Work Phone: [facility] Start: 06-24-2023 End: 06-24-2023 Encounter for general adult medical examination without abnormal findings Dr. Derik Ingram Work Phone: [facility] Start: 06-24-2023 End: 06-24-[address] Derik Ingram Work Phone: [facility] Internal Medicine Work Phone: Start: 05-23-2023 End: 05-23-[address] Derik Ingram Work Phone: [facility] Work Phone: Start: 04-10-2023 Non-patient / Non-visit Dr. Carol Ingram Work Phone: [facility] Start: 04-09-2023 Non-patient / Non-visit Dr. Carol Ignram Work Phone: [facility] Start: 04-09-2023 End: 04-10-2023 Evaluation and management of inpatient Dr. Derik Ingram Work Phone: [facility] Work Phone: Start: 04-08-2023 End: 04-08-[address] Derik Ingram Work Phone: [facility] Work Phone: Start: 04-04-2023 End: 04-04-[address] Derik Ingram Work Phone: [facility] Work Phone: Start: 04-01-2023 End: 04-01-[address] Derik Ingram Work Phone: [facility] Work Phone: Start: 03-28-2023 End: 03-28-[address] Derik Ingram Work Phone: [facility] Start: 03-25-2023 End: 03-25-[address] Derik Ingram Work Phone: [facility] Work Phone: Start: 03-25-2023 End: 03-25-[address] Derik Ingram Work Phone: [facility]Laboratory, Specimen Start: 03-25-2023 End: 03-25-[address] Derik Ingram Work Phone: [facility] Start: 03-21-2023 End: 03-21-[address] Derik Ingram Work Phone: [facility]Out[facility] Ultrasound Start: 03-21-2023 End: 03-21-[address] Derik Ingram Work Phone: [facility] Start: 03-18-2023 End: 03-18-[address] Derik Ingram Work Phone: [facility] Start: 03-15-2023 End: 03-15-[address] Derik Ingram Work Phone: [facility] Start: 03-12-2023 End: 03-12-[address] Derik Ingram Work Phone: [facility] Start: 03-07-2023 End: 03-07-[address] Derki Ingram Work Phone: [facility] Start: 03-04-2023 End: 03-04-[address] Derik Ingram Work Phone: [facility] Start: 02-28-2023 End: 02-28-[address] Derik Ingram Work Phone: [facility] Start: 02-25-2023 End: 02-25-[address] Derik Ingram Work Phone: [facility] Start: 02-21-2023 End: 02-21-[address] Derik Ingram Work Phone: [facility] Work Phone: Start: 02-21-2023 End: 02-21-[address] Derik Ingram Work Phone: [facility] Ultrasound Start: 02-18-2023 End: 02-18-[address] Derik Ingram Work Phone: [facility] Start: 02-04-2023 End: 02-04-[address] Derik Ingram Work Phone: [facility] Work Phone: Start: 02-04-2023 End: 02-04-[address] Derik Ingram Work Phone: [facility] Start: 01-21-2023 End: 01-21-[address] Derik Ingram Work Phone: [facility] Work Phone: Start: 01-21-2023 End: 01-21-[address] Derik Ingram Work Phone: [facility] Ultrasound Start: 01-07-2023 End: 01-07-[address] Derik Ingram Work Phone: [facility] Start: 12-10-2022 End: 12-10-[address] Derik Ingram Work Phone: [facility] Work Phone: Start: 12-10-2022 End: 12-10-[address] Derik Ingram Work Phone: [facility] Start: 11-20-2022 End: 11-20-2022 ambulatory [facility] Start: 11-13-2022 End: 11-13-[address] Derik Ingram Work Phone: [facility] Start: 10-16-2022 End: 10-16-[address] Derik Ingram Work Phone: [facility] Start: 10-16-2022 End: 11-13-[address] Derik Ingram Work Phone: [facility] Work Phone: Start: 10-16-2022 End: 11-13-[address] [facility] Start: 10-11-2022 End: 10-11-[address] Derik Ingram Work Phone: [facility] Start: 10-09-2022 End: 10-13-[address] Der[facility]gram [facility] Start: 10-09-2022 [facility] Start: 10-01-2022 End: 10-01-2022 ambulatory Out of [facility] Work Phone: Start: 10-01-2022 End: 10-01-2022 Patient encounter procedure Out [facility]Laboratory, OP Pavilion Start: 09-17-2022 End: 09-17-2022 ambulatory Out of [facility] Work Phone: Start: 09-17-2022 End: 09-17-2022 Patient encounter procedure Out [facility]Labor[facility], Specimen Start: 09-17-2022 End: 09-17-2022 Patient encounter procedure Out [facility] Start: 08-09-2022 End: 08-09-2022 ambulatory Out of [facility] Work Phone: Start: 08-09-2022 End: 08-09-2022 Patient encounter procedure Out [facility] Start: 08-07-2022 End: 08-07-2022 ambulatory [facility] Work Phone: Start: 08-07-2022 End: 10-25-2022 Patient encounter procedure Out [facility] Start: 06-19-2022 End: 06-19-2022 ambulatory Out of [facility] Work Phone: Start: 06-19-2022 End: 06-19-2022 Patient encounter procedure Out [facility] Internal Medicine Start: 03-20-2021 Chart Update Shalini López Ar chinal Work Phone: [facility] Work Phone: Start: 03-20-2021 Office outpatient vi sit 15 minutes Shalini Perla Archinal Work Phone: [facility] Work Phone: Start: 04-12-2020 End: 04-12-2020 Subsequent hospital visit by physician Osman Brock Work Phone: [facility] Comment on above: Sprain of right ankl e, unspecified ligament, initial encounter Start: 08-11-2019 End: 08-11-2019 Subsequent hospital visit by physician Ford Mejia Work Phone: [facility] Comment on above: Paresthesia of upper and lower extremities of both sides Start: 08-07-2019 End: 08-07-2019 Emergency department patient visit Bri Holland Work Phone: [facility] Dept Comment on above: Palpitations (Primar y Dx) Start: 07-25-2019 End: 07-25-2019 Subsequent hospital visit by physician [facility] Procedures Date Procedure Procedure Detail Performing Clinician Start: 03-25-2023 Group B Streptococcu s Culture Dr. Derik Ingram Work Phone: Start: 03-21-2023 Ultrasound scan for growth Dr. Derik Ingram Work Phone: Start: 02-21-2023 Ultrasound scan for growth Dr. Derik Ingram Work Phone: Start: 01-21-2023 Ultrasound scan for growth Dr. Derik Ingram Work Phone: Start: 08-11-2019 Mri spinal canal cer vical w/o & w/contr matrl Ford Molinaangieroberto Work Phone: Start: 08-11-2019 Mri brain brain stem w/o w/contrast material Ford Mejia Work Phone: Start: 08-07-2019 Assay of thyroid sti mulating hormone tsh Bri Holland Work Phone: Start: 08-07-2019 Assay of troponin quantitative Bri Holland Work Phone: Start: 08-07-2019 Basic metabolic pane l calcium total Bri Holland Work Phone: Start: 08-07-2019 Radiologic exam ches t 2 views Bri Holland Work Phone: Start: 08-07-2019 Blood count complete automated Bri Holland Work Phone: Start: 08-07-2019 Fibrin dgradj produc ts d-dimer quantitative Bri Holland Work Phone: Start: 08-07-2019 Ecg routine ecg w/le ast 12 lds w/i&r Bri Holland Work Phone: Start: 07-25-2019 Radex spine cervical 4 or 5 views Christa Chakraborty Work Phone: Cholecystectomy [facility] Colonoscopy Shalini Raymondi nal Group B Streptococcu s Culture Dr. Derik Ingram Work Phone: History of Ear Press ure Equalization Tube, Insertion Shalini Archinal Tonsillectomy and adenoidectomy Shalini Archinal Urine culture [facility] culture Dr. Derik Ingram Work Phone: Plan of Treatment Date Care Activity Detail Author Start: 06-17-2028 DTaP/Tdap/Td vaccine (2 - Tdap) DTaP/Tdap/Td vaccine (2 - Tdap) [place] Start: 04-10-2023 Patient discharge [facility] Start: 04-09-2023 Administration of medication [facility] Start: 04-09-2023 Application of ice c ollar, cap or bag [facility] Start: 04-09-2023 Catheterization of vein [facility] Start: 04-09-2023 Introduction of urin kriss catheter [facility] Start: 04-09-2023 Measuring intake and output [facility] Start: 04-09-2023 Notification of physician [facility] Start: 04-09-2023 Procedure discontinued [facility] Start: 04-09-2023 Provision of activit y privileges [facility] Start: 04-09-2023 Vital signs measurements [facility] Start: 04-09-2023 [facility] Start: 04-09-2023 Admission procedure [facility] Start: 04-09-2023 Verification routine [facility] Start: 06-19-2022 Patient referral [facility] Work Phone: Start: 04-24-2021 PHYSICAL, Provider: Shalini Champion, Status: Pen, Time: 1:30 PM PHYSICAL, Provider: Shalini Champion, Status: Pen, Time: 1:30 PM [facility] Work Phone: Start: 06-14-2020 Influenza vaccination Flu vacc ine (Season Ended) [place] Start: 08-13-2019 End: 08-13-2019 Office Visit 08/13/2019 Office Visit Family Medicine Ford Mejia, [address] [address] [phone] [facility] Start: 08-11-2019 End: 08-11-2019 Appointment [facility] Start: 06-14-2019 Influenza vaccination Flu vaccine (# 1) [place] Start: 2008 Cervical cancer screen Cervica l cancer screen [place] Start: 2008 Screening for malign ant neoplasm of cervix Cervical cancer [place] Start: 2006 DTaP/Tdap/Td vaccine (1 - Tdap) DTaP/Tdap/Td vaccine (1 - Tdap) [place] Start: 2002 [facility] [place] [place] Start: 2002 [facility] [place] [place] Start: 2000 Varicella Vaccine (1 of 2 - 13+ 2-dose series) [place] Start: 1988 Varicella vaccine (1 of 2 - 2-dose childhood series) Varicella vaccine (1 of 2 - 2-dose childhood series) [place] CBC W Auto Different ial panel - Blood [facility] Work Phone: CBC W Auto Different ial panel - Blood [facility] Chlamydia deoxyribon ucleic acid detection [facility] Work Phone: Chlamydia deoxyribon ucleic acid detection [facility] Drugs identified in Urine by Screen method [facility] Work Phone: Drugs identified in Urine by Screen method [facility] EKG 12 Lead - Chest Pain EKG 12 Lead - Chest Pain ECG STAT 08/07/2019 3:54 PM EDT [place] Glucose [Mass/volume ] in Serum or Plasma --1 hour post 50 g glucose PO [facility] Work Phone: Hepatitis B surface antigen measurement [facility] Work Phone: Hepatitis B surface antigen measurement [facility] Hepatitis C antibody measurement [facility] Work Phone: Hepatitis C antibody measurement [facility] HIV 1+2 Ab+HIV1 p24 Ag [Presence] in Serum or Plasma by Immunoassay [facility] Work Phone: HIV 1+2 Ab+HIV1 p24 Ag [Presence] in Serum or Plasma by Immunoassay [facility] Patient Education After a Vagina l [facility] Work Phone: Patient referral [facility] Work Phone: Rubella IgG measurement [facility] Work Phone: Rubella IgG measurement [facility] Treponema sp Ab [Pre sence] in Serum [facility] Work Phone: Treponema sp Ab [Pre sence] in Serum [facility] End: 04-12-2020 XR ANKLE RIGHT (MIN 3 VIEWS) XR ANKLE RIGHT (MIN 3 VIEWS) Imaging Routine Sprain of right ankle, unspecified ligament, initial encounter 1 Occurrences starting 04/12/2020 until 04/12/[address] [facility] [place] Comment on above: 1 Occurrences starti ng 04/12/2020 until 04/12/2020 XR ANKLE RIGHT (MIN 3 VIEWS) XR ANKLE RIGHT (MIN 3 VIEWS) Imaging Routine Sprain of right ankle, unspecified ligament, initial encounter 04/12/2020 5:51 PM EDT [facility] NEGATED: Highlighted row has been ruled out! Planned Goals not documented [facility] Work Phone: Immunizations Immunization Date Immunization Notes Care Provider Fa [facility] 02-04-2023 tetanus toxoid, redu maria luisa diphtheria toxoid, and acellular pertussis vaccine, adsorbed Dr. Derik Ingram Work Phone: [facility] 02-19-2021 Pfizer-BioNTech COVID-19 Vacc 30 MCG/0.3ML Intramuscular Suspension Shalini López [employer] Work Phone: [facility] Work Phone: 01-29-2021 Pfizer-BioNTech COVID-19 Vacc 30 MCG/0.3ML Intramuscular Suspension Shalini López [employer] Work Phone: [facility] Work Phone: 07-27-2020 influenza, injectabl e, quadrivalent, preservative free; Translations: [Fluarix Quadrivalent 0.5 ML Intramuscular Suspension Prefilled Syringe] Shalini López [employer] Work Phone: [facility] Work Phone: Comment on above: Series: 06-17-2018 tetanus toxoid, redu maria luisa diphtheria toxoid, and acellular pertussis vaccine, adsorbed [facility] 06-14-2018 influenza virus vaccine, unspecified formulation Shaliniesperanza Champion Work Phone: [facility] Work Phone: Comment on above: Series: 06-14-2018 influenza, seasonal, injectable Shaliniesperanza Raymondhannah [facility] Work Phone: 06-14-2018 tetanus and diphther ia toxoids, adsorbed, preservative free, for adult use (2 Lf of tetanus toxoid and 2 Lf of diphtheria toxoid) Shalini Champion [facility] Work Phone: Comment on above: Series: Payers Date Payer Category Payer Self-pay [id number] 2023 Unknown [id number] 2018 Unknown BCBS BCBS OUT OF STATE xxxxxxxxxxxx 2018-Present [address] [place] [address] xxxxxxxxxxxx [id number] 1987 Unknown [id number] Private Health Insurance [id number] Unknown [employer] Unknown ANTHEM [id number] Unknown [id number] Unknown [id number] Unknown [id number] Social History Date Type Detail Facility Start: 07-09-2019 End: 04-12-2020 Tobacco smoking status NHIS Never smoker [place] Start: 07-09-2019 End: 08-10-2019 Alcohol intake No [place] Sex Assigned At Not on file [place] Start: 04-12-2020 Alcohol intake Current non-dr cracker off of alcohol (finding) [place] Start: 04-12-2020 History SDOH Alcohol Frequency 1 [place] Start: 04-12-2020 History SDOH Alcohol Std Drinks 99 [place] Start: 04-12-2020 History SDOH Social Connections Phone 5 [place] Start: 04-12-2020 History SDOH Social Connections [employer] 3 [place] Start: 04-12-2020 History SDOH Social Connections Membership 2 [place] Start: 04-12-2020 History SDOH Physica l Activity DPW 4 [place] Start: 04-12-2020 History SDOH Physica l Activity MPS 6 [place] Exposure to SARS-CoV -2 (event) Unable to assess [place] Non-smoker [facility] Work Phone: Start: 06-19-2022 End: 11-22-2023 Tobacco smoking status NHIS Unknown if ever smoked [facility] Start: 09-05-2018 None [facility] Start: 09-05-2018 Spouse/ Signif icant Other [facility] Start: 1985 Sex Assigned At Female [facility] NEGATED: Highlighted row - - [facility] Work Phone: Medical Equipment Procedure Code Equipment Code Equipment Origin al Text Equipment Identifier Dates Blood Sugar Diagnostic (Accu-Chek Guide Test Strips) strip Start: 10-09-2022 Lancets (Bd Ultr a Fine Lancets) 33 gauge misc Start: 10-09-2022 Blood Sugar Diagnostic (Accu-Chek Guide Test Strips) strip Start: 10-03-2022 End: 10-09-2022 Lancets (Bd Ultr a Fine Lancets) 33 gauge misc Start: 10-03-2022 End: 10-09-2022 Blood Sugar Diagnostic (Accu-Chek Guide Test Strips) strip Start: 10-09-2022 Lancets (Bd Ultr a Fine Lancets) 33 gauge misc Start: 10-09-2022 Blood Sugar Diagnostic (Accu-Chek Guide Test Strips) strip Start: 10-03-2022 End: 10-09-2022 Lancets (Bd Ultr a Fine Lancets) 33 gauge misc Start: 10-03-2022 End: 10-09-2022 Blood Sugar Diagnostic (Accu-Chek Guide Test Strips) strip Start: 10-09-2022 Lancets (Bd Ultr a Fine Lancets) 33 gauge misc Start: 10-09-2022 Blood Sugar Diagnostic (Accu-Chek Guide Test Strips) strip Start: 10-03-2022 End: 10-09-2022 Lancets (Bd Ultr a Fine Lancets) 33 gauge misc Start: 10-03-2022 End: 10-09-2022 Blood Sugar Diagnostic (Accu-Chek Guide Test Strips) strip Start: 10-09-2022 Lancets (Bd Ultr a Fine Lancets) 33 gauge misc Start: 10-09-2022 Blood Sugar Diagnostic (Accu-Chek Guide Test Strips) strip Start: 10-03-2022 End: 10-09-2022 Lancets (Bd Ultr a Fine Lancets) 33 gauge misc Start: 10-03-2022 End: 10-09-2022 Blood Sugar Diagnostic (Accu-Chek Guide Test Strips) strip Start: 10-09-2022 Lancets (Bd Ultr a Fine Lancets) 33 gauge misc Start: 10-09-2022 Blood Sugar Diagnostic (Accu-Chek Guide Test Strips) strip Start: 10-03-2022 End: 10-09-2022 Lancets (Bd Ultr a Fine Lancets) 33 gauge misc Start: 10-03-2022 End: 10-09-2022 Blood Sugar Diagnostic (Accu-Chek Guide Test Strips) strip Start: 10-09-2022 Lancets (Bd Ultr a Fine Lancets) 33 gauge misc Start: 10-09-2022 Blood Sugar Diagnostic (Accu-Chek Guide Test Strips) strip Start: 10-03-2022 End: 10-09-2022 Lancets (Bd Ultr a Fine Lancets) 33 gauge misc Start: 10-03-2022 End: 10-09-2022 Blood Sugar Diagnostic (Accu-Chek Guide Test Strips) strip Start: 10-09-2022 Lancets (Bd Ultr a Fine Lancets) 33 gauge misc Start: 10-09-2022 Blood Sugar Diagnostic (Accu-Chek Guide Test Strips) strip Start: 10-03-2022 End: 10-09-2022 Lancets (Bd Ultr a Fine Lancets) 33 gauge misc Start: 10-03-2022 End: 10-09-2022 Blood Sugar Diagnostic (Accu-Chek Guide Test Strips) strip Start: 10-09-2022 Lancets (Bd Ultr a Fine Lancets) 33 gauge misc Start: 10-09-2022 Blood Sugar Diagnostic (Accu-Chek Guide Test Strips) strip Start: 10-03-2022 End: 10-09-2022 Lancets (Bd Ultr a Fine Lancets) 33 gauge misc Start: 10-03-2022 End: 10-09-2022 Blood Sugar Diagnostic (Accu-Chek Guide Test Strips) strip Start: 10-03-2022 End: 10-09-2022 Blood Sugar Diagnostic (Accu-Chek Guide Test Strips) strip Start: 10-09-2022 End: 05-23-2023 Lancets (Bd Ultr a Fine Lancets) 33 gauge misc Start: 10-03-2022 End: 10-09-2022 Lancets (Bd Ultr a Fine Lancets) 33 gauge misc Start: 10-09-2022 End: 05-23-2023 Blood Sugar Diagnostic (Accu-Chek Guide Test Strips) strip Start: 10-03-2022 End: 10-09-2022 Blood Sugar Diagnostic (Accu-Chek Guide Test Strips) strip Start: 10-09-2022 End: 05-23-2023 Lancets (Bd Ultr a Fine Lancets) 33 gauge misc Start: 10-03-2022 End: 10-09-2022 Lancets (Bd Ultr a Fine Lancets) 33 gauge misc Start: 10-09-2022 End: 05-23-2023 Goals Date Patient Goal Desired Activity /State Functional Status Date Assessment Result Facility NEGATED: Highlighted row Functional performance Functional status health issues are not documented Disease [facility] Work Phone: Mental Status Date Assessment Result Facility NEGATED: Highlighted row Cognitive function [Interpretation] Cognitive status health issues are not documented Disease [facility] Work Phone: Clinical Notes 02-18-2021 to 04-10-2023 Note Date & Type Note Facility 04-10-2023 Progress note Note Date/Time April 10, 2023 8:17 am [facility] Medical Records Department [address] [place] [address] Progress Note - OBGYN 04/10/23 0816 MR#: [id number] Acct: [id number] Name: EDU WASHINGTON Rep #:[id number] : 1985 37 From: Nita Gonzalez DO PCP: Dr. Derik Ingram MD Status:A DM IN Location: [id number] Subjective Subjective Patient doing well without complaints. Tolerating PO. Ambulating and voiding without difficulty. Feeding well. Denies chest pain, shortness of breath, calf pain/swelling, fevers, chills, lightheadedness. Objective Data Objective Data Vital Signs: Vital Signs Temp Pulse Resp BP Pulse Ox O2 Del Method 97.7 F L 85 16 113/60 96 Room Air 04/10/23 08:05 04/10/23 08:05 04/10/23 08:05 04/10/23 08:05 04/10/23 08:05 04/10/23 08:05 Oxygen Delivery Method Room Air Weight: 225 lb 12.054 oz Body Mass Index (BMI) 37.5 Intake & Output: Intake and Output for Last 24 Hours 04/08/23 04/09/23 04/10/23 23:59 23:59 23:59 Intake Total 719.95 / 719.95 Output Total 500 / 500 Balance 219.95 / 219.95 Lab / Micro Data 04/09/23 16:40 Labs: Laboratory Results - last 24 hr 04/09/23 15:40: Vag Amniotic Fld Detect POSITIVE H 04/09/23 16:35: POC Glucose 77 04/09/23 16:40: WBC 12.2 H, RBC 4.37, Hgb 13.8, Hct 39.3, MCV 89.9, MCH 31.6, MCHC 35.1, RDW Std Deviation 42.5, RDW Coeff of Gus 12.9, Plt Count 218, MPV 10.9, Immature Gran % (Auto) 1.100 H, Neut % (Auto) 77.4 H, Lymph % (Auto) 14.7 L, Potter % (Auto) 6.2, Eos % (Auto) 0.2, Baso % (Auto) 0.4, Absolute Neuts (auto)9.5 H, Absolute Lymphs (auto) 1.80, Nucleated RBC % 0, Syphilis Total Ab Non-reactive, Blood Type B POSITIVE, Antibody Screen NEGATIVE 04/09/23 17:35: POC Glucose 96 04/09/23 22:28: POC Glucose 113 H 04/10/23 05:49: POC Glucose 69 L ROS Constitutional Constitutional: Denies chills, fatigue, fever(s), poor appetite or weakness Eyes Eyes: Denies blurry vision, change in vision, seeing flashes or spots in vision ENT HEENT: Denies dizziness, headache(s), loss taste/smell or sore throat Cardiovascular Cardiovascular: Denies chest pain, dizziness, dyspnea, irregular heart rhythm, palpitations or rapid heart rate Respiratory/Chest Respiratory/Chest: Denies chest tightness, cough, dyspnea or breast pain Gastrointestinal Gastrointestinal: Denies abdominal pain, constipation or vomiting Genitourinary Genitourinary: Denies dysuria or flank pain Musculoskeletal Musculoskeletal: Denies difficulty walking, joint pain, limited range of motion or numbness Neurologic Neurologic: Denies abnormal movements, abnormal speech, dizziness, numbness, seizure-like activity or syncope Psychiatric Psychiatric: Denies anxiety, behavioral changes, change in appetite, confusion, depression or suicidal thoughts Physical Exam Const alert, oriented x3 and no apparent distress General Appearance: cooperative and comfortable Resp normal respiratory effort Cardio regular rate GI normal to inspection, nondistended, normoactive bowel sounds GI Narrative: uterus is firm below umbilicus Palpation: soft Back/Spine no CVA tenderness and thoraco-lumbar ROM normal Extremity normal to inspection, no clubbing, cyanosis or edema, no calf tenderness and no pedal edema Psych mental status grossly normal, thought process normal, cooperative, affect normal, speech normal, activity/motor behavior normal, denies homicidal ideationand denies suicidal ideation Assessment & Plan (1) Vaginal delivery: COMMENT: KW 38.6 IAL-SROM Type 2 DM girl PLAN: Plan s/p PPD # 1 1. routine post delivery care 2. breast feeding- support given 3. rh positive 4. rubella immune 5. half insulin again to 7 and stop if fasting glucose level in the 60's then follow up with Dr. Templeton 6. ok to dc to home tonight 04/10/23 0817 <Electronically signed by Nita Gonzalez DO> Cosigner Signature (if applicable): CC: ~ Signed [facility] Work Phone: 1(671) 270-288006-28-2023 Procedure [facility] 04-09-2023 Discharge summary Author Alison Cochran [facility] April 09, 2023 6:06pm Note Date/Time April 09, 2023 6:06 pm [facility] Medical Records Department [address] [place] [id number] Instructions for Home/Discharge Instructions 04/09/23 1805 MR#: [id number] Acct: [id number] Name: EDU WASHINGTON BRANDON Rep #:[id number] : 1985 37 From: Alison Cochran CNM PCP: Dr. Derik Ingram MD Status:A DM IN Discharge Instructions Diet Discharge Diet: No restrictions Activity Discharge Activity: Return to Normal Activity May resume sexual activity in: 6-8 weeks Dressing / Incision Call your doctor if you observe: Fever of 101 or Higher, Coldness, Increased Pain, Numbness or Tingling, Change in Color, Inability to urinate, Inability to have a bowel movement, Using more than 1 pad per hour, Shortness of breath, Dizziness, Fainting spells, Swelling in the ankles, Chest pain, Increased palpitations (irregular heartbeat), Calf discomfort and Uncontrolled pain Follow Up Care Please Follow Up With: Alison Cochran CNM When: Please call the office to schedule your follow up appointment in 6 weeks. If you had high blood pressure please call to schedule an appointment in 2 weeks. Test Results: Test results from this visit will be discussed in further detail at your follow- up appointment, if applicable. Discharge Plan Admission Admit Date/Time: 04/09/23 16:09 Attending Provider: Alison Cochran Primary Care Provider: Derik Ingram Discharge Orders/Prescriptions Prescriptions: No Action PNV no.[id number] 400 mcg-35 mg- 25 mg-5 mg tablet,chewable 1 tab PO DAILY Jaziel Ferrerberry 30-1.1-25 mg tablet,chewable 1 tab PO DAILY aspirin [Adult Aspirin Regimen] 81 mg tablet,delayed release (DR/EC) 81 mg PO HS Novolin N FlexPen 100 unit/mL (3 mL) insulin pen 33 unit subcut QPM (DME) blood-glucose meter Misc See Rx Instructions .ROUTE .MEDSUPPLY Qty: 1 0RF Rx Instructions: As directed- Test fasting and 2 hours after meals (DME) Accu-Chek Guide test strips Strip See Rx Instructions .Route Qty: 100 12RF Rx Instructions: test fasting and 2 hours post meals(4times pr day) (DME) lancets [BD Ultra Fine Lancets] 33 gauge misc See Rx Instructions .ROUTE .MEDSUPPLY Qty: 100 8RF Rx Instructions: test fasting and 2 hours post meals(4 times per day) Referrals / Follow Up: Derik Ingram MD [Primary Care Provider] - 04/09/231805<Electronically signed by Alison Cochran CNM>Alison Cochran CNM CC: Dr. 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 Derik Ingram MD Status:A DM IN Location: [id number] HPI - General General Date of Admission: 04/09/23 Date of Service: 04/09/23 HPI Narrative EDU WASHINGTON, is a 37 F who presents at 38.6 week IAL/SROM Maternal Data Information BRANDEE Calculator Estimated Delivery Date Method Current WG Current Estimate 04/17/23 LMP (Certain) 38w 6d Final BRANDEE: 04/17/23 Final BRANDEE Source: US >20 weeks Gestational age: 38.6 weeks PFSH PFS Medical History (Updated 04/09/23 @ 18:00 by Alison Cochran CNM) Abnormal Pap smear of cervix GERD (gastroesophageal reflux disease) Gestational diabetes Hiatal hernia Other skin changes Vitamin D deficiency Home Medications PNV 153-FA 400 mcg-om3 35 mg-dha 25 mg-epa 5 mg-fish oil chew tablet 1 tab PO DAILY 09/04/22 [History Last Taken Unknown] vitamin C 30 mg-zinc citrate 1.1 mg-elderberry 25 mg chewable tablet (Sambucus Elderberry) 1 tab PO DAILY supplement 09/04/22 [History Last Taken Unknown] blood-glucose meter #1 ea 10/03/22 [Rx Last Taken Unknown] blood sugar diagnostic (Accu-Chek Guide test strips) #100 ea 10/09/22 [Rx Last Taken Unknown] lancets 33 gauge (BD Ultra Fine Lancets) #100 ea 10/09/22 [Rx Last Taken Unknown] aspirin 81 mg tablet,delayed release (Adult Aspirin Regimen) 81 mg PO HS hx covid in 11/13/22 [History Last Taken 04/07/23 22:00 81 mg] insulin NPH isoph U-100 human 100 unit/mL (3 mL) subcutaneous pen (Novolin N FlexPen) 33 unit subcut QPM GDM 03/15/23 [History Last Taken 04/08/23 20:00 33 units] Allergy/AdvReac Type Severity Reaction Status Date / Time No Known Allergies Allergy Verified 04/08/23 14:20 Family History Mother Hypertension Aunt Breast cancer, Onset Age: 45 Maternal Surgical History History of placement of ear tubes History of tonsillectomy and adenoidectomy Hx of cholecystectomy Anita teeth extracted Social History adopted: No household members: spouse and children housing: house number of children: 1 current occupational status: employed current occupation: [employer] current occupational exposures/hazards: No pets and animals: Yes (Not managing litterbox) pets and animals: cat(s) history of recent travel: No sexually active: Yes Smoking Status: Never smoker alcohol intake: never substance use type: does not use well-balanced diet: daily or most days caffeine: No eating out: rarely or never during the past year weight has: increased > 10 lbs what type of physical activity do you participate in: none jeffy/presybeterian: None seatbelt use: always do you feel safe at home: Yes additional social history: Reynxpa[employer]Bjpjlkpop 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 Date Name GA/Weeks Outcome Route Bth Weight Infant Gen Labor Lgth Anesthesia Del Locatn Provider FOB 09/05/18 Luan 38 live - full term 7lbs 11oz Female [address] [facility] Dr. Kade Parks Delivery Date: 09/05/18 Last Updated by: Kirsten Queen Elevated blood pressure Visit Details Expected Delivery Route/Plan Labor Preferences- CB/BF classes: [] labor support person: [] labor intervention preferences: [] pain management options preferred: [] cut cord/dad catch: dad would like to catch : [] PP control planned: [] discussed possible routes of delivery and associated risks: [] special requests: [] Plans Covid status: discussed Flu vaccine: discussed Tdap vaccine: [] Rhogam: [] LARC form signed: completed Problem list reviewed and updated with the most current plan of care details and appropriate orders placed. Relevant counseling for the gestational age provided. Continue routine care and follow up unless otherwise noted in visit notes/problem list details OB Flowsheet Initial Weight: Not Recorded Date -?-?-?-?-?-?-?-?-?-?-?-?- EGA Weight BP Urine Prot -?-?-?-?-?-?-?-?-?-?-?-?- Glucose FHR FuHt Pres Dilation -?-?-?-?-?-?-?-?-?-?-?-?- Effaced St Visit Note 09/17/22 -?-?-?-?-?-?-?-?-?-?-?-?- 9w 5d 217 lb 116/80 -?-?-?-?-?-?-?-?-?-?-?-?- 170 -?-?-?-?-?-?-?-?-?-?-?-?- SM- CRL 3 cm con s with LMP 10/16/22 -?-?-?-?-?-?-?-?-?-?-?-?- 13w 6d 216 lb 119/78 Negative -?-?-?-?-?-?-?-?-?-?-?-?- Negative 157 -?-?-?-?-?-?-?-?-?-?-?-?- MH-No VB. Br US confirm live IUP. Nausea controlled with unisom. Now on insulin QHS 11/13/22 -?-?-?-?-?-?-?-?-?-?-?-?- 17w 6d 218 lb 120/85 Negative -?-?-?-?-?-?-?-?-?-?-?-?- Negative 158 -?-?-?-?-?-?-?-?-?-?-?-?- JV- no complaint s today. FOB has a lymphangioma that is being worked up. glucose levels normal on insulin with Dr. Templeton. 12/10/22 -?-?--?-?-?-?-?-?-?-?-?-?- 21w 5d 217 lb 8 oz 131/80 -?-?-?-?-?-?-?-?-?-?-?-?- 150 -?-?-?-?-?-?-?-?-?-?-?-?- SM- no vb crasylvia christianson, BS controlled. 01/07/23 -?-?-?-?-?-?-?-?-?-?-?-?- 25w 5d 220 lb 8 oz 128/84 -?-?-?-?-?-?-?-?-?-?-?-?- 145 -?-?-?-?-?-?-?-?-?-?-?-?- SM- no vb lof go od fm no reuglar ctx. BS reviewed. 02/04/23 -?-?-?-?-?-?-?-?-?-?-?-?- 29w 5d 223 lb 6 oz 126/87 Nega tive -?-?-?-?-?-?-?-?-?-?-?-?- Negative 140 -?-?-?-?-?-?-?-?-?-?-?-?- SM- no vb lof go od fm no regular ctx tdap given 02/18/23 -?-?-?-?-?-?-?-?-?-?-?-?- 31w 5d 220 lb 111/73 Negative -?-?-?-?-?-?-?-?-?-?-?-?- Negative 140 32 -?-?-?-?-?-?-?-?-?-?-?-?- SM- BS reviewed no vb lof good fm n oregular ctx 02/28/23 -?-?-?-?-?-?-?-?-?-?-?-?- 33w 1d 222 lb 8 oz 130/84 -?-?-?-?-?-?-?-?-?-?-?-?- -?-?-?-?-?-?-?-?-?-?-?-?- SM- nst 03/04/23 -?-?-?-?-?-?-?-?-?-?-?-?- 33w 5d 222 lb 6 oz 132/84 Nega tive -?-?-?-?-?-?-?-?-?-?-?-?- Negative 130 -?-?-?-?-?-?-?-?-?-?-?-?- SM- no vb lof go od fm no regular ctx 03/07/23 -?-?-?-?-?-?-?-?-?-?-?-?- 34w 1d 227 lb 4 oz 138/82 138/82 -?-?-?-?-?-?-?-?-?-?-?-?- 130 -?-?-?-?-?-?-?-?-?-?-?-?- KW-NST 03/15/23 -?-?-?-?-?-?-?-?-?-?-?-?- 35w 2d 226 lb 2 oz 123/83 123/83 Negative -?-?-?-?-?-?-?-?-?-?-?-?- Negative 135 -?-?-?-?-?-?-?-?--?-?-?-?- [id number] 03/21/23 -?-?-?-?-?-?-?-?-?-?-?-?- 36w 1d 227 lb 122/82 Negative -?-?-?-?-?-?-?-?-?-?-?-?- Negative 140 -?-?-?-?-?-?-?-?-?-?-?-?- SM- reviewed BS controlled, no vb lof good fm no regular ctx NST reactive plan IOL 39 03/25/23 -?-?-?-?-?-?-?-?-?-?-?-?- 36w 5d 227 lb 2 oz 123/82 Nega tive -?-?-?-?-?-?-?-?-?-?-?-?- Negative 140 37 -?-?-?-?-?-?-?-?-?-?-?-?- LC- nst reactive . no lof/vb/ctx. good fm. gbs obtained today. 03/28/23 -?-?-?-?-?-?-?-?-?-?-?-?- 37w 1d 228 lb 2 oz 119/83 Nega tive -?-?-?-?-?-?-?-?-?-?-?-?- Negative 145 -?-?-?-?-?-?-?-?-?-?-?-?- JV- nst reactive . lots of stress at home with daughter having poison isabela. overall no lof, vaginal bleeding, or dec fm 04/01/23 -?-?-?-?-?-?-?-?-?-?-?-?- 37w 5d 227 lb 8 oz 133/85 -?-?-?-?-?-?-?-?-?-?-?-?- -?-?-?-?-?-?-?-?-?-?-?-?- discussed IOL ne xt at 39w1d per patient request 04/04/23 -?-?-?-?-?-?-?-?-?-?-?-?- 38w 1d 228 lb 8 oz 122/74 Nega tive -?-?-?-?-?-?-?-?-?-?-?-?- Negative 150 -?-?-?-?-?-?-?-?-?-?-?-?- MH-NST only reac tive NST FHR Rate Baby A Baseline: 125 Variability:: Moderate Accelerations:: 15 x 15 Decelerations:: None NST Reactive:: Yes FHR Category:: Category I ROS Constitutional Constitutional: Denies change in weight, fatigue, fever(s), headache(s), poor appetite or weakness Eyes Eyes: Denies blurry vision, change in vision, floaters, seeing flashes or spots in vision ENT HEENT: Denies dizziness, headache(s), loss taste/smell or sore throat Cardiovascular Cardiovascular: Denies chest pain, dizziness, dyspnea, irregular heart rhythm, lightheadedness, palpitations or rapid heart rate Respiratory/Chest Respiratory/Chest: Denies change in mental status, chest tightness, cough, dyspnea or breast pain Gastrointestinal Gastrointestinal: Denies anorexia, chewing difficulty, constipation, diarrhea or weight changes Genitourinary Genitourinary: Denies difficulty urinating, dysuria, flank pain, genital pain, urinary frequency or urinary urgency Musculoskeletal Musculoskeletal: Denies back pain, difficulty walking, extremity pain, joint pain, muscle cramps or muscle weakness Integumentary Integumentary: Denies lesions or unusual bruising Neurologic Neurologic: Denies abnormal movements, abnormal speech, dizziness, numbness, seizure-like activity, syncope or weakness Psychiatric Psychiatric: Denies behavioral changes, change in appetite, confusion, depression, homicidal ideation, suicidal ideation or suicidal thoughts Endocrine Endocrinology: Denies excessive sweating, polydipsia or polyuria Hematologic/Lymphatic Hematologic/Lymphatic: Denies anemia Allergic/Immunologic Allergic/Immunologic: Denies itchy eyes, lip swelling, throat swelling, tongue swelling or wheezing Vital Signs Vital Signs Vital Signs: 04/09/23 15:37 04/09/23 15:37 04/09/23 15:57 Temperature Temperature Source Temporal Pulse Rate 86 Blood Pressure 136/75 H BP Systolic 136 BP Diastolic 75 04/09/23 15:57 04/09/23 16:31 04/09/23 16:31 Temperature 97.6 F L Temperature Source Pulse Rate 74 Blood Pressure 142/86 H BP Systolic 142 BP Diastolic 86 04/09/23 17:52 04/09/23 17:52 04/09/23 17:53 Temperature Temperature Source Temporal Pulse Rate 81 Blood Pressure 126/79 H BP Systolic 126 BP Diastolic 79 04/09/23 17:53 Temperature 97.4 F L Temperature Source Pulse Rate Blood Pressure BP Systolic BP Diastolic Weight Weight: 225 lb 12.054 oz Body Mass Index (BMI) 37.5 Physical Exam Const alert, oriented x3 and no apparent distress General Appearance: cooperative Orientation / Consciousness: awake HEENT normocephalic Neck full ROM Lymph Lymphatic: no lymphadenopathy noted Chest inspection of chest normal Resp normal respiratory effort and normal air movement Effort and Inspection: able to speak in complete sentences and symmetric chest movement GI soft to palpation and non-tender Inspection: gravid Palpation: soft; Negative for tender external exam normal Manual OB Exam: estimated gestational size, presentation cephalic, dilated 4, effaced 70 and station -1 Back/Spine normal to inspection Extremity normal to inspection and full ROM Skin no rashes or lesions noted Psych mental status grossly normal Appearance: grossly normal Speech: normal speech Labs Labs Labs: Blood Type B POSITIVE Antibody Screen NEGATIVE Hct 39.3 % (37-47) Hgb 13.8 g/dL (12.0-15.0) Obstetrics US Syphilis Total Ab Non-reactive Rubella IgG Antibody Reactive (Nonreactive) Hep Bs Antigen Non-Reactive (Nonreactive) Chlamydia DNA (CHAIM) Negative (Negative) Neisseria gonorrhoeae DNA (CHAIM) Negative (Negative) HIV 1&2 Antibody Non-Reactive (Nonreactive) Glucose 1 Hr 50 gm 194 mg/dL (70-140) H Group B Strep DNA Negative (Negative) Rhogam given: No Miscellaneous Test Assessment & Plan (1) : QUALIFIERS: Weeks of gestation: 37 weeks Qualified Code(s): Z3A.37 - 37 weeks gestation of COMMENT: GBS negative. anatomy nl, NIPT low risk, declined carrier testing. afp neg. (2) Supervision of high risk , antepartum: COMMENT: [id number], BRANDEE 04/17/23 surprise PC Luan, Charly (3) Active labor at term: COMMENT: SROM PLAN: Patient presents IAL, plan expectant management for , pitocin/AROM PRN if needed. Pain management: plans epidural. GBS neg. Management of any complications: Type 2 DM I have reviewed the [facility] and made any clinically relevant updates. (4) Obesity affecting : COMMENT: 1 TM GCT, healthy weight gain encouraged. (5) AMA (advanced maternal age) multigravida 35+: COMMENT: low risk nipt, plan 36 week growth US(20%ile). 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 Insulin @ HS. plan 2x weekly testing at 32 and growth q 4 weeks. Charges/Coding Multi Select Codes Urinary/Genital Urinary/Genital CPT Codes: No Charge 04/09/231800 <Electronically signed by Alison Cochran CNM> Cosigner Signature (if applicable): CC: CECILE Cochran; Dr. Derik Ingram MD~ Signed [facility] Work Phone: 1(227) 882-856205-08-2021 History of Present illness Narrative* 35 yo F with chronic headaches, GERD, palpitations, paresthesias, fatigue, nausea, diarrhea, and vitamin D deficiency, here for feeling off. 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 * took a test - negative * very tired * sense that she can't take a full breath - pressurelike sensation - feels like she needs to belch * thinks her heart rate is higher than average - HR around 110s * left arm weakness persists - testing was all negative - note it's worse if her posture is worse * left side of chest slightly painful * went off omeprazole around a year ago [facility] Work Phone: Evaluation note* Diagnosis Onset Date Resolution Status GERD (gastroesophageal reflux disease) chronic Other skin changes chronic Vitamin D deficiency [facility] Work Phone: Evaluation note* Diagnosis Onset Date Resolution Status GERD (gastroesophageal reflux disease) resolved Other skin changes resolved Vitamin D deficiency resolve d Obesity affecting acute acute Supervision of high risk , antepartum acute [facility] Work Phone: Evaluation note* Diagnosis Onset Date Resolution Status Obesity affecting acute acute Supervision of high risk , antepartum acute Gestational diabetes mellitus noneactive AMA (advanced maternal age) multigravida 35+ acute Diabetes in preg-unspec acut e acute Supervision of high risk , antepartum acute AMA (advanced maternal age) multigravida 35+ acute COVID-19 affecting , antepartum acute Diabetes in preg-unspec acut e Obesity affecting acute acute Supervision of high risk , antepartum acute [facility] Work Phone: Evaluation note* Diagnosis Onset Date Resolution Status Obesity affecting acute acute Supervision of high risk , antepartum acute Gestational diabetes mellitus noneactive AMA (advanced maternal age) multigravida 35+ acute acute Supervision of high risk , antepartum acute AMA (advanced maternal age) multigravida 35+ acute COVID-19 affecting , antepartum acute Obesity affecting acute acute Supervision of high risk , antepartum acute AMA (advanced maternal age) multigravida 35+ acute COVID-19 affecting , antepartum acute Modified White class B prege stational diabetes mellitus acute Obesity affecting acute acute Supervision of high risk , antepartum acute [facility] Work Phone: Evaluation note* Diagnosis Onset Date Resolution Status Gestational diabetes mellitus noneactive AMA (advanced maternal age) multigravida 35+ acute acute Supervision of high risk , antepartum acute AMA (advanced maternal age) multigravida 35+ acute COVID-19 affecting , antepartum acute Obesity affecting acute acute Supervision of high risk , antepartum acute AMA (advanced maternal age) multigravida 35+ acute COVID-19 affecting , antepartum acute Modified White class B prege stational diabetes mellitus acute Obesity affecting acute acute Supervision of high risk , antepartum acute AMA (advanced maternal age) multigravida 35+ acute COVID-19 affecting , antepartum acute Modified White class B prege stational diabetes mellitus acute Obesity affecting acute acute Supervision of high risk , antepartum acute [facility] Work Phone: Evaluation note* Diagnosis Onset Date Resolution Status Gestational diabetes mellitus noneactive AMA (advanced maternal age) multigravida 35+ acute acute Supervision of high risk , antepartum acute AMA (advanced maternal age) multigravida 35+ acute COVID-19 affecting , antepartum acute Obesity affecting acute acute Supervision of high risk , antepartum acute AMA (advanced maternal age) multigravida 35+ acute COVID-19 affecting , antepartum acute Modified White class B prege stational diabetes mellitus acute Obesity affecting acute acute Supervision of high risk , antepartum acute AMA (advanced maternal age) multigravida 35+ acute COVID-19 affecting , antepartum acute Modified White class B prege stational diabetes mellitus acute Obesity affecting acute acute Supervision of high risk , antepartum acute AMA (advanced maternal age) multigravida 35+ acute COVID-19 affecting , antepartum acute Modified White class B prege stational diabetes mellitus acute Obesity affecting acute acute Supervision of high risk , antepartum acute [facility] Work Phone: Evaluation note* Diagnosis Onset Date Resolution Status AMA (advanced maternal age) multigravida 35+ acute COVID-19 affecting , antepartum acute Obesity affecting acute acute Supervision of high risk , antepartum acute AMA (advanced maternal age) multigravida 35+ acute COVID-19 affecting , antepartum acute Modified White class B pregestational diabetes mellitu s acute Obesity affecting acute acute Supervision of high risk , antepartum acute AMA (advanced maternal age) multigravida 35+ acute COVID-19 affecting , antepartum acute Modified White class B pregestational diabetes mellitu s acute Obesity affecting acute acute Supervision of high risk , antepartum acute AMA (advanced maternal age) multigravida 35+ acute COVID-19 affecting , antepartum acute Modified White class B pregestational diabetes mellitu s acute Obesity affecting acute acute Supervision of high risk , antepartum acute AMA (advanced maternal age) multigravida 35+ acute COVID-19 affecting , antepartum acute Modified White class B pregestational diabetes mellitu s acute Obesity affecting acute acute Supervision of high risk , antepartum acute AMA (advanced maternal age) multigravida 35+ acute COVID-19 affecting , antepartum acute Modified White class B pregestational diabetes mellitu s acute Obesity affecting acute acute Supervision of high risk , antepartum acute [facility] Work Phone: Evaluation note* Diagnosis Onset Date Resolution Status AMA (advanced maternal age) multigravida 35+ acute COVID-19 affecting , antepartum acute Modified White class B pregestational diabetes mellitu s acute Obesity affecting acute acute Supervision of high risk , antepartum acute AMA (advanced maternal age) multigravida 35+ acute COVID-19 affecting , antepartum acute Modified White class B pregestational diabetes mellitu s acute Obesity affecting acute acute Supervision of high risk , antepartum acute AMA (advanced maternal age) multigravida 35+ acute COVID-19 affecting , antepartum acute Modified White class B pregestational diabetes mellitu s acute Obesity affecting acute acute Supervision of high risk , antepartum acute AMA (advanced maternal age) multigravida 35+ acute COVID-19 affecting , antepartum acute Modified White class B pregestational diabetes mellitu s acute Obesity affecting acute acute Supervision of high risk , antepartum acute AMA (advanced maternal age) multigravida 35+ acute COVID-19 affecting , antepartum acute Modified White class B pregestational diabetes mellitu s acute Obesity affecting acute acute Supervision of high risk , antepartum acute Modified White class B pregestational diabetes mellitu s acute AMA (advanced maternal age) multigravida 35+ acute COVID-19 affecting , antepartum acute Modified White class B pregestational diabetes mellitu s acute Obesity affecting acute acute Supervision of high risk , antepartum acute AMA (advanced maternal age) multigravida 35+ acute COVID-19 affecting , antepartum acute Modified White class B pregestational diabetes mellitu s acute Obesity affecting acute acute Supervision of high risk , antepartum acute AMA (advanced maternal age) multigravida 35+ acute COVID-19 affecting , antepartum acute Modified White class B pregestational diabetes mellitu s acute Obesity affecting acute acute Supervision of high risk , antepartum acute AMA (advanced maternal age) multigravida 35+ acute COVID-19 affecting , antepartum acute Modified White class B pregestational diabetes mellitu s acute Obesity affecting acute acute Supervision of high risk , antepartum acute AMA (advanced maternal age) multigravida 35+ acute COVID-19 affecting , antepartum acute Modified White class B pregestational diabetes mellitu s acute Obesity affecting acute acute Supervision of high risk , antepartum acute AMA (advanced maternal age) multigravida 35+ acute COVID-19 affecting , antepartum acute Modified White class B pregestational diabetes mellitu s acute Obesity affecting acute acute Supervision of high risk , antepartum acute [facility] Work Phone: Evaluation noteNo assessment information available [facility] Work Phone: Evaluation note* Diagnosis Onset Date Resolution Status care and examination noneactive Gestational diabetes acute Preventative health care acu te [facility] Work Phone: Evaluation note* Diagnosis Onset Date Resolution Status Hair loss acute Malaise and fatigue acute Screening for thyroid disorder acute Vitamin D deficiency acute [facility] Work Phone: Advance Directives No Advanced Directives Records FoundDocuments on File Type Date 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 Advance Directives and Living Will Power of Power Driven Brush Maker Documents on File Type Date Recorded 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 Advance Directives and Living Will Power of Power Driven Brush Maker Advance Directive Response Recorded Date/ Time Living Will No May 26 0 1:05pm Power of Power Driven Brush Maker No May 26, 2 020 1:05pm Advance Directive Response Recorded Date/ Time Living Will No May 26 0 12:05pm Power of Power Driven Brush Maker No May 26, 2 020 12:05pm Advance Directive Response Recorded Date/ Time Living Will No January 22, 2023 3:39pm Power of Power Driven Brush Maker No January 22 3:39pm Advance Directive Response Recorded Date/ Time Living Will No April 09, 2023 4:14pm Power of Power Driven Brush Maker No April 09 3 4:14pm Advance Directive Response Recorded Date/ Time Living Will No April 09, 2023 3:14pm Power of Power Driven Brush Maker No April 09 3 3:14pm Reason for Referral Status Reason Specialty Diagnoses / Procedures Referre d By Contact Referred To Contact [facility] Diagnoses Paresthesia of upper and lower extremities of both sides Procedures MRI CERVICAL SPINE W WO CONTRAST Ford Mejia F, DO [address] [place] [address] Status Reason Specialty Diagnoses / Procedures Referre d By Contact Referred To Contact [facility] Diagnoses Paresthesia of upper and lower extremities of both sides Procedures MRI BRAIN W WO CONTRAST Fanaticallangiea Ford F, DO [address] [place] [address] Assessments Diagnosis Paresthesia of upper and lower extremities of both sides Diagnosis Sprain of right ankle, unspecified ligament, initial encounter Diagnosis Palpitations- Primary Summary Purpose Family History No Family History Records Found Mother Name Dates Details Family history of hypertensi on(V17.49, Z82.49) Status:Active Family history of Anxiety(30 0.00, F41.9) Status:Active Family history of depression (V17.0, Z81.8) Status:Active Family history of hyperlipid emia(V18.19, Z83.438) Status:Active Father Name Dates Details No pertinent family history( V49.89, Z78.9) Status:Active Unknown Family Member Name Dates Details No pertinent family history: Father(V49.89, Z78.9) Status:Active Family history of hypertensi on: Mother(V17.49, Z82.49) Status:Active Anxiety: Mother Status:Active Family history of depression : Mother(V17.0, Z81.8) Status:Active Family history of hyperlipid emia: Mother(V18.19, Z83.438) Status:Active Unknown Family Member Name Dates Details No pertinent family history: Father(V49.89, Z78.9) Status:Active Family history of hypertensi on: Mother(V17.49, Z82.49) Status:Active Anxiety: Mother Status:Active Family history of depression : Mother(V17.0, Z81.8) Status:Active Family history of hyperlipid emia: Mother(V18.19, Z83.438) Status:Active Relationship Condition Age at Onset Recorded Date/T lise mother Hypertension Unknown Relationship Condition Age at Onset Recorded Date/T lise mother Hypertension Unknown aunt Malignant neoplasm of breast 45 Discharge Instructions * Attachments The following attachments cannot be sent through Care Everywhere. * Palpitations (Turkish) documented in this encounter Chief Complaint PT. has been feeling off lately, stopped taking control, headaches stopped since and other concerns. Pt. denies having a temp of 100 degrees or greater, new or worsening cough, sob, chills, headache, diarrhea, sore throat, body aches, malaise, nausea/vomiting,runny nose congestion. HAve you had any symptoms? PT. denies coming into contact with persons with confirmed covid. gm. Chief Complaint and Reason for Visit Chief Complaint [employer], EST. KAREN C P T, CONSENT FORM ONLY Reason for Visit GERD (gastroesophage al reflux disease) Other skin changes Vitamin D deficiency Chief Complaint [employer], EST. CARE, C P T, CONSENT FORM ONLY E ORDER EORDER Reason for Visit GERD (gastroesophage al reflux disease) Other skin changes Vitamin D deficiency Chief Complaint [employer], EST. CARE C P T, CONSENT FORM ONLY E ORDER EORDER NOB Reason for Visit GERD (gastroesophage al reflux disease) Other skin changes Vitamin D deficiency Obesity affecting Supervision of high risk , antepartum Chief Complaint [employer], EST. KAREN, C P T, CONSENT FORM ONLY E ORDER EORDER NOB GESTATIONAL DIABETES/PREDIABETES Reason for Visit GERD (gastroesophage al reflux disease) Other skin changes Vitamin D deficiency Obesity affecting Supervision of high risk , antepartum Chief Complaint E ORDER EORDER NOB GESTATIONAL DIABETES/PREDIABETES Gestational diabetes GESTATIONAL DIABETES/PREDIABETES est ob 14w est ob 18w Reason for Visit Obesity affecting pr egnancy Supervision of high risk , antepartum Gestational diabetes mellitus AMA (advanced maternal age) multigravida 35+ Diabetes in preg-unspec Supervision of high risk , antepartum AMA (advanced maternal age) multigravida 35+ COVID-19 affecting , antepartum Diabetes in preg-unspec Obesity affecting Supervision of high risk , antepartum Chief Complaint NOB GESTATIONAL DIABETES/PREDIABETES Gestational diabetes GESTATIONAL DIABETES/PREDIABETES est ob 14w est ob 18w est ob 22w Reason for Visit Obesity affecting pr egnancy Supervision of high risk , antepartum Gestational diabetes mellitus AMA (advanced maternal age) multigravida 35+ Supervision of high risk , antepartum AMA (advanced maternal age) multigravida 35+ COVID-19 affecting , antepartum Obesity affecting Supervision of high risk , antepartum AMA (advanced maternal age) multigravida 35+ COVID-19 affecting , antepartum Modified White class B pregestational diabetes mellitus Obesity affecting Supervision of high risk , antepartum Chief Complaint GESTATIONAL DIABETES /PREDIABETES Gestational diabetes GESTATIONAL DIABETES/PREDIABETES est ob 14w est ob 18w est ob 22w est ob 26w COVID EFFECTING Reason for Visit Gestational diabetes mellitus AMA (advanced maternal age) multigravida 35+ Supervision of high risk , antepartum AMA (advanced maternal age) multigravida 35+ COVID-19 affecting , antepartum Obesity affecting Supervision of high risk , antepartum AMA (advanced maternal age) multigravida 35+ COVID-19 affecting , antepartum Modified White class B pregestational diabetes mellitus Obesity affecting Supervision of high risk , antepartum AMA (advanced maternal age) multigravida 35+ COVID-19 affecting , antepartum Modified White class B pregestational diabetes mellitus Obesity affecting Supervision of high risk , antepartum Chief Complaint Gestational diabetes GESTATIONAL DIABETES/PREDIABETES est ob 14w est ob 18w est ob 22w est ob 26w COVID EFFECTING est ob 30w Reason for Visit Gestational diabetes mellitus AMA (advanced maternal age) multigravida 35+ Supervision of high risk , antepartum AMA (advanced maternal age) multigravida 35+ COVID-19 affecting , antepartum Obesity affecting Supervision of high risk , antepartum AMA (advanced maternal age) multigravida 35+ COVID-19 affecting , antepartum Modified White class B pregestational diabetes mellitus Obesity affecting Supervision of high risk , antepartum AMA (advanced maternal age) multigravida 35+ COVID-19 affecting , antepartum Modified White class B pregestational diabetes mellitus Obesity affecting Supervision of high risk , antepartum AMA (advanced maternal age) multigravida 35+ COVID-19 affecting , antepartum Modified White class B pregestational diabetes mellitus Obesity affecting Supervision of high risk , antepartum Chief Complaint est ob 18w est ob 22w est ob 26w COVID EFFECTING est ob 30w est ob 32w COVID EFFECTING 33 WK OB/NST Reason for Visit AMA (advanced matern al age) multigravida 35+ COVID-19 affecting , antepartum Obesity affecting Supervision of high risk , antepartum AMA (advanced maternal age) multigravida 35+ COVID-19 affecting , antepartum Modified White class B pregestational diabetes mellitus Obesity affecting Supervision of high risk , antepartum AMA (advanced maternal age) multigravida 35+ COVID-19 affecting , antepartum Modified White class B pregestational diabetes mellitus Obesity affecting Supervision of high risk , antepartum AMA (advanced maternal age) multigravida 35+ COVID-19 affecting , antepartum Modified White class B pregestational diabetes mellitus Obesity affecting Supervision of high risk , antepartum AMA (advanced maternal age) multigravida 35+ COVID-19 affecting , antepartum Modified White class B pregestational diabetes mellitus Obesity affecting Supervision of high risk , antepartum AMA (advanced maternal age) multigravida 35+ COVID-19 affecting , antepartum Modified White class B pregestational diabetes mellitus Obesity affecting Supervision of high risk , antepartum Chief Complaint est ob 22w est ob 26w COVID EFFECTING est ob 30w est ob 32w COVID EFFECTING 33 WK OB/NST NST est ob 34w/NST NST 35 WK OB/NST NST 36 WK OB/NST NST COVID EFFECTING 37 WK OB/NST NST Reason for Visit AMA (advanced matern al age) multigravida 35+ COVID-19 affecting , antepartum Modified White class B pregestational diabetes mellitus Obesity affecting Supervision of high risk , antepartum AMA (advanced maternal age) multigravida 35+ COVID-19 affecting , antepartum Modified White class B pregestational diabetes mellitus Obesity affecting Supervision of high risk , antepartum AMA (advanced maternal age) multigravida 35+ COVID-19 affecting , antepartum Modified White class B pregestational diabetes mellitus Obesity affecting Supervision of high risk , antepartum AMA (advanced maternal age) multigravida 35+ COVID-19 affecting , antepartum Modified White class B pregestational diabetes mellitus Obesity affecting Supervision of high risk , antepartum AMA (advanced maternal age) multigravida 35+ COVID-19 affecting , antepartum Modified White class B pregestational diabetes mellitus Obesity affecting Supervision of high risk , antepartum Modified White class B pregestational diabetes mellitus AMA (advanced maternal age) multigravida 35+ COVID-19 affecting , antepartum Modified White class B pregestational diabetes mellitus Obesity affecting Supervision of high risk , antepartum AMA (advanced maternal age) multigravida 35+ COVID-19 affecting , antepartum Modified White class B pregestational diabetes mellitus Obesity affecting Supervision of high risk , antepartum AMA (advanced maternal age) multigravida 35+ COVID-19 affecting , antepartum Modified White class B pregestational diabetes mellitus Obesity affecting Supervision of high risk , antepartum AMA (advanced maternal age) multigravida 35+ COVID-19 affecting , antepartum Modified White class B pregestational diabetes mellitus Obesity affecting Supervision of high risk , antepartum AMA (advanced maternal age) multigravida 35+ COVID-19 affecting , antepartum Modified White class B pregestational diabetes mellitus Obesity affecting Supervision of high risk , antepartum AMA (advanced maternal age) multigravida 35+ COVID-19 affecting , antepartum Modified White class B pregestational diabetes mellitus Obesity affecting Supervision of high risk , antepartum Chief Complaint est ob 26w COVID EFFECTING est ob 30w est ob 32w COVID EFFECTING 33 WK OB/NST NST est ob 34w/NST NST 35 WK OB/NST NST 36 WK OB/NST NST COVID EFFECTING 37 WK OB/NST NST 38 WK OB/NST NST 39 WK OB/NST VAG DELIVERY VAG DELIVERY VAG DELIVERY Chief Complaint NST est ob 34w/NST NST 35 WK OB/NST NST 36 WK OB/NST NST COVID EFFECTING 37 WK OB/NST NST 38 WK OB/NST NST 39 WK OB/NST VAG DELIVERY VAG DELIVERY VAG DELIVERY 6 WK POST 1 Y FU Reason for Visit care and examination Gestational diabetes Preventative health care Chief Complaint fu Reason for Visit Hair loss Malaise and fatigue Screening for thyroid disorder Vitamin D deficiency Additional Source Comments INFORMATION SOURCE (unrecogn ized section and content) DATE CREATED AUTHOR 08/19/2019 [facility] [employer] DATE CREATED AUTHOR AUTHOR'S ORGANIZ ATION 05/13/2020 [facility] [employer] DATE CREATED AUTHOR AUTHOR'S ORGANIZ ATION 03/20/2021 [employer] DATE CREATED AUTHOR AUTHOR'S ORGANIZ ATION 03/20/2021 [facility] DATE CREATED AUTHOR AUTHOR'S ORGANIZ ATION 11/21/2022 [facility] DATE CREATED AUTHOR AUTHOR'S ORGANIZ ATION 06/28/2025 [facility] Reason for Visit (unrecogniz ed section and content) Reason Comments Palpitations patient complains of having a fluttering in her chest that started while she was at work. patient complains of having left arm pain/tingling for the last couple of weeks. patient has a scheduled MRI saturday for the arm and neck pain she is experiencing. patient complains of no chest pain at this time. patient ocmplains of no SOB at this time. elina has had a holter monitor in the past but nothing was found. Goals (unrecognized section and content) Goals may be documented in a n alternate sectionGoals may be documented in an alternate sectionGoals may be documented in an alternate sectionGoals may be documented in an alternate sectionGoals may be documented in an alternate sectionGoals may be documented in an alternate sectionGoals may be documented in an alternate sectionGoals may be documented in an alternate sectionGoals may be documented in an alternate sectionGoals may be documented in an alternate sectionGoals may be documented in an alternate sectionGoals may be documented in an alternate section Care Teams (unrecognized sec tion and content) Team Status: Active Member Role Status Dates CLARITA DIXIE Family Provider Active Dr. Derik Ingram MD Primary Care Provider Active Team Status: Inactive Member Role Status Dates Dr. Derik Ingram MD Primary Care Provider, Refer ring Provider Active Dr. Reina Curiel MD Attending Provider Active Team Status: Inactive Member Role Status Dates Dr. Derik Ingram MD Primary Care Provider, Refer ring Provider Active Brenda Irwin [employer], [employer]-C Attending Provider Active Team Status: Inactive Member Role Status Dates Dr. Derik Ingram MD Primary Care Provider, Refer ring Provider Active Dr. Nita Gonzalez DO Attending Provider Activ e Team Status: Inactive Member Role Status Dates Dr. Derik Ingram MD Primary Care Provider, Refer ring Provider Active Christy Brown NP-C Attending Provider Active Team Status: Inactive Member Role Status Dates Dr. Derik Ingram MD Primary Care Provider Active Brenda Irwin [employer], [employer]-C Attending Provider Active Team Status: Inactive Member Role Status Dates Dr. Derik Ingram MD Primary Care Provider Active Dr. Reina Curiel MD Attending Provider Active Team Status: Inactive Member Role Status Dates Dr. Derik Ingram MD Primary Care Provider Active Dr. Reina Curiel MD Attending Provider, Referr ing Provider Active Team Status: Inactive Member Role Status Dates Dr. Derik Ingram MD Primary Care Provider Active Brenda Irwin [employer], [employer]-C Attending Provider, Referring Provider Active Team Status: Inactive Member Role Status Dates Dr. Derik Ingram MD Primary Care Provider, Refer ring Provider Active Nahed Blanca CNM Attending Provider Active Team Status: Inactive Member Role Status Dates Dr. Derik Ingram MD Primary Care Provider Active Nahed Blanca CNM Attending Provider, Referring Pr dyllaner Active Team Status: Active Member Role Status Dates Dr. Derik Ingram MD Primary Care Provider Active Alison Cochran CNM Admit Provider, Att ending Provider, Referring Provider, Other Provider Active Team Status: Active Member Role Status Dates Dr. Derik Ingram MD Primary Care Provider Active Alison Cochran CNM Admit Provider, Ref erring Provider, Other Provider Active Dr. Nita Gonzalez DO Attending Provider Activ e Team Status: Inactive Member Role Status Dates Dr. Derik Ingram MD Primary Care Provider Active Alison Cochran CNM Admit Provider, Att ending Provider, Referring Provider Active Team Status: Inactive Member Role Status Dates Dr. Derik Ingram MD Primary Care P obi, Attending Provider, Referring Provider Active FOR RECORDS PERTAINING TO PATIENTS WHO ARE OR HAVE BEEN ENROLLED IN A CHEMICAL DEPENDENCY/SUBSTANCEABUSE PROGRAM, SOME INFORMATION MAY BE OMITTED. This clinical summary was aggregated from multiple sources. Caution should be exercised in using it in the provision of clinical care. This summary normalizes information from multiple sources, and as a consequence, information in this document may materially change the coding, format and clinical context of patient data. In addition, data may be omitted in some cases. CLINICAL DECISIONS SHOULD BE BASED ON THE PRIMARY CLINICAL RECORDS. [employer] provides no warranty or guarantee of the accuracy or completeness of information in this document.
[2025-07-08 08:08] LABS: HPV APTIMA, High Risk Negative (Negative)
== END | disposition home or self-care (01) ==
LOC: LABSPEC 12:46
PROVIDERS: PCP Internal Medicine; Referring Provider Obstetrics & Gynecology; Visit Provider Obstetrics & Gynecology
DX: Z12.4 Encounter for screening for malignant neoplasm of cervix (principal)
CPT/HCPCS: 87624; 88175; G0145

== ENCOUNTER → 2025-07-01 | Outpatient (CLI) | payer OTHER, SELFPAY ==
[2025-07-01 17:43] LABS: Hematocrit 36.6 % (37-47); Hemoglobin 13.0 g/dL (12.0-15.0); Immature Granulocytes Count 0.020 X10^3/uL (0.0-0.0); Mean Corp Hgb Conc 35.5 g/dL (32-36); Mean Corpuscular Volume 87.8 fL (81-99); Mean Platelet Vol. 9.6 fl (6.2-12.0); NRBC Flagged by Analyzer 0 % (0-5); Platelet Count 305 K/mm3 (150-450); RBC Distribution Width CV 11.8 % (11.6-14.6); RBC Distribution Width SD 37.5 fl (35.1-43.9); Red Blood Count 4.17 M/mm3 (4.2-5.4); White Blood Count 6.4 K/mm3 (4.4-11.0)
[2025-07-01 18:15] LABS: AST(SGOT) 19 U/L (<=31); Alanine Aminotransfer ALT/SGPT 20 U/L (<=34); Albumin, Serum 4.2 g/dL (3.5-5.0); Alkaline Phosphatase 47 U/L (35-104); Anion Gap 12 (5-15); BUN 10 mg/dL (4-19); BUN/Creat Ratio 17.2 RATIO (10-20); Calcium,Total 9.0 mg/dL (7.6-11.0); Carbon Dioxide 20.7 mmol/L (21.0-32.0); Chloride 106 mmol/L (98-108); Cholesterol 162 mg/dL (<=200); Globulin 2.8 g/dL (2.2-4.2); Glucose 85 mg/dL (70-99); Low Density Lipoprotein Calc. 95 mg/dL; Potassium 3.6 mmol/L (3.3-5.1); Triglycerides 75 mg/dL; Very Low Density Lipoprotein 15 mg/dL (5-40); Vitamin D,25 Hydroxy 23.9 ng/mL (30-100); cholesterol:hdl ratio screen 3.10
== END | disposition home or self-care (01) ==
PROVIDERS: PCP Internal Medicine; Referring Provider Internal Medicine; Visit Provider Internal Medicine
DX: Z00.00 Encounter for general adult medical examination without abnormal findings (principal); Z13.29 Encounter for screening for other suspected endocrine disorder; E55.9 Vitamin D deficiency, unspecified; Z86.32 Personal history of gestational diabetes
CPT/HCPCS: 36415; 80053; 80061; 82306; 83036; 84439; 84443; 85025